=== PATIENT | female | born 1990 ===

== ENCOUNTER 2020-08-20 16:12 | Outpatient (REF) | payer OTHER, SELFPAY ==
[2020-08-20 18:15] LABS: Free T4 (Free Thyroxine) 1.07 ng/dL (0.71-1.85); Thyroid Stimulating Hormone 1.14 uIU/mL (0.32-4.0)
== END 2020-08-20 16:13 | disposition home or self-care (01) ==
LOC: HO.LAB 16:12
PROVIDERS: PCP Physician Assistant; Visit Provider Nurse Practitioner Gerontology
DX: E03.9 Hypothyroidism, unspecified (principal)
CPT/HCPCS: 36415; 84439; 84443

== ENCOUNTER 2020-09-05 13:01 | Outpatient (REF) | payer OTHER, SELFPAY ==
[2020-09-05 15:13] LABS: Free T4 (Free Thyroxine) 1.04 ng/dL (0.71-1.85); Thyroid Stimulating Hormone 0.73 uIU/mL (0.32-4.0)
== END 2020-09-05 13:02 | disposition home or self-care (01) ==
LOC: HO.LAB 13:01
PROVIDERS: PCP Family Medicine Adult Medicine; Visit Provider Nurse Practitioner Gerontology
DX: E03.9 Hypothyroidism, unspecified (principal)
CPT/HCPCS: 36415; 84439; 84443; 99212

== ENCOUNTER 2021-08-20 13:19 | Outpatient (REF) | payer OTHER, SELFPAY ==
[2021-08-20 15:03] LABS: Free T4 (Free Thyroxine) 0.94 ng/dL (0.71-1.85); Thyroid Stimulating Hormone 2.69 uIU/mL (0.32-4.0)
== END 2021-08-20 13:20 | disposition home or self-care (01) ==
LOC: HO.LAB 13:19
PROVIDERS: Visit Provider Internal Medicine Endocrinology, Diabetes & Metabolism
DX: E03.9 Hypothyroidism, unspecified (principal)
CPT/HCPCS: 36415; 84439; 84443

== ENCOUNTER → 2021-08-21 15:03 | Outpatient (BNVA) | payer OTHER, SELFPAY | PROVIDERS: PCP Family Medicine Adult Medicine; Visit Provider Internal Medicine Endocrinology, Diabetes & Metabolism | DX: E03.9 Hypothyroidism, unspecified (principal); R63.5 Abnormal weight gain; Z68.26 Body mass index [BMI] 26.0-26.9, adult | CPT/HCPCS: 99212 ==

== ENCOUNTER 2021-09-12 12:02 | Outpatient (REF) | payer OTHER, SELFPAY ==
[2021-09-12 12:22] LABS: MANUAL DIFF FLAG NO
[2021-09-12 12:44] LABS: Basophils Percent Auto 0.5 % (0-2); Eosinophils Absolute Auto 0.1 X10*3/uL (0.0-0.4); Eosinophils Percent Auto 1.2 % (0-4); Hematocrit 38.3 % (37.0-47.0); Hemoglobin 12.5 g/dl (12.0-16.0); Imm Gran Abs Auto 0.01 X10*3/uL (0.00-0.03); Imm Gran Pct Auto 0.2 % (0.0-0.4); Lymphocytes Absolute Auto 1.7 X10*3/uL (1.2-4.9); Lymphocytes Percent Auto 29.7 % (20-40); Mean Corpuscular HGB Conc 32.6 g/dl (31.0-35.0); Mean Corpuscular Hemoglobin 28.3 pg (27.0-33.0); Mean Corpuscular Volume 86.8 fL (80.0-98.0); Mean Platelet Volume 9.4 fL (9.4-12.3); Monocytes Absolute Auto 0.4 X10*3/uL (0.1-1.2); Monocytes Percent Auto 7.6 % (2-11); Neutrophils Absolute Auto 3.4 x10*3/uL (2.0-8.3); Neutrophils Percent Auto 60.8 % (45-73); Platelet Count 338 X10*3/uL (160-400); Red Blood Count 4.41 X10*6/uL (4.20-5.50); White Blood Count 5.7 X10*3/uL (4.8-10.8)
[2021-09-12 13:09] LABS: Prothrombin Time 11.6 SEC (9.9-13.0)
[2021-09-12 13:19] LABS: Alanine Aminotransferase 9 U/L (0-31); Albumin Level 4.2 g/dL (3.5-5.0); Alkaline Phosphatase 71 U/L (39-117); Anion Gap 9 (12-20); Aspartate Amino Transferase 15 U/L (5-31); Bilirubin Total 0.6 mg/dL (0.0-1.0); Blood Urea Nitrogen 11 mg/dL (9-16); Carbon Dioxide 27 mmol/L (22-29); Chloride 106 mmol/L (96-108); Estimated Glomerular Filt Rate > 60; Glucose Random 89 mg/dL (60-115); Potassium 4.2 mmol/L (3.3-5.1); Sodium 138 mmol/L (135-145); Total Protein 7.2 g/dL (6.5-8.0)
[2021-09-12 13:33] LABS: Vitamin D 25-OH Total 27.9 ng/mL (>30)
[2021-09-12 13:48] LABS: Folate 18.6 ng/mL (> or = 4.0); Vitamin B12 377 pg/mL (200-900)
[2021-09-13 18:16] LABS: DHEA Sulfate 200 mcg/dL (19-237)
[2021-09-18 21:36] LABS: Testosterone, Total 42 ng/dL (2-45)
== END 2021-09-12 12:03 | disposition home or self-care (01) ==
LOC: HO.LAB 12:02
PROVIDERS: Absent Provider Internal Medicine Endocrinology, Diabetes & Metabolism; PCP Physician Assistant; Visit Provider Nurse Practitioner Family
DX: R23.8 Other skin changes (principal); R53.83 Other fatigue; R63.5 Abnormal weight gain
CPT/HCPCS: 36415; 80053; 82306; 82607; 82627; 82746; 84402; 84403; 85025; 85610

== ENCOUNTER 2022-10-29 09:28 | Outpatient (AMB) | payer OTHER, SELFPAY ==
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
== END 2022-10-29 10:12 | disposition home or self-care (01) ==
LOC: HO.HMGH 09:28
PROVIDERS: PCP Physician Assistant; Visit Provider Nurse Practitioner Family
DX: F33.1 Major depressive disorder, recurrent, moderate (principal); E03.9 Hypothyroidism, unspecified; E28.2 Polycystic ovarian syndrome
CPT/HCPCS: 99214

== ENCOUNTER 2022-10-30 12:43 | Outpatient (REF) | payer OTHER, SELFPAY ==
[2022-10-30 13:21] LABS: Hematocrit 39.6 % (37.0-47.0); Hemoglobin 12.7 g/dl (12.0-16.0); Mean Corpuscular HGB Conc 32.1 g/dl (31.0-35.0); Mean Corpuscular Hemoglobin 27.4 pg (27.0-33.0); Mean Corpuscular Volume 85.5 fL (80.0-98.0); Mean Platelet Volume 9.3 fL (9.4-12.3); Platelet Count 413 X10*3/uL (160-400); Red Blood Count 4.63 X10*6/uL (4.20-5.50); Red Cell Distribution Width 14.3 % (11.0-16.0)
[2022-10-30 14:53] LABS: Alanine Aminotransferase 10 U/L (0-31); Albumin Level 4.2 g/dL (3.5-5.0); Alkaline Phosphatase 71 U/L (39-117); Anion Gap 11 (12-20); Aspartate Amino Transferase 15 U/L (5-31); Bilirubin Total 0.5 mg/dL (0.0-1.0); Blood Urea Nitrogen 10 mg/dL (9-16); Calcium 9.5 mg/dL (8.4-10.2); Carbon Dioxide 26 mmol/L (22-29); Chloride 107 mmol/L (96-108); Estimated Glomerular Filt Rate > 60; Glucose Fasting 84 mg/dL (60-99); Potassium 3.7 mmol/L (3.3-5.1); Sodium 140 mmol/L (135-145); Total Protein 7.7 g/dL (6.5-8.0)
[2022-10-30 15:06] LABS: TSH reflex Free T4 1.44 uIU/mL (0.32-4.0)
== END 2022-10-30 12:44 | disposition home or self-care (01) ==
LOC: HO.LAB 12:43
PROVIDERS: PCP Physician Assistant; Visit Provider Physician Assistant
DX: Z13.1 Encounter for screening for diabetes mellitus (principal); E03.9 Hypothyroidism, unspecified
CPT/HCPCS: 36415; 80053; 84443; 85027

== ENCOUNTER 2023-01-14 14:26 | Outpatient (AMB) | payer OTHER, SELFPAY ==
--- NOTE | 2023-01-14 14:27 | MHC.PC.OV ---
Vital Signs 01/14/23 14:28 Height 5 ft 3 in Weight 159 lb 4 oz BMI 28.2 BP 124/68 Blood Pressure Location Lt brachial Position Sitting Pulse 79 Pulse Source Pulse Oximeter Pulse Oximetry (%) 98 Oxygen Delivery Method Room Air Intake Visit Reasons: Annual Exam Intake Note: Patient is here today for a physical. Differential Tester Required: No Clinical Research Manager: Not Required per policy Accompanied by: Self / Same As Patient Allergies CLindamycin Allergy (Unknown, Uncoded 01/14/23 14:39) rash latex Allergy (Unknown, Uncoded 01/14/23 14:39) Swelling Medication List - Last Reconciled 01/14/23 by Cuco Roth PA-C acetaminophen 650 mg PO Q4H PRN albuterol sulfate 90 mcg/actuation (Ventolin HFA) 1 inh inhalation QID 30 days cholecalciferol (vitamin D3) 10 mcg PO DAILY hydroxyzine HCl 10 mg PO ONCE PRN 30 days ibuprofen 0 mg PO levothyroxine 25 mcg PO DAILY 30 days metformin 1,000 mg PO BID sertraline 50 mg (2 x 25 mg) PO DAILY 90 days Tobacco use date assessed: 01/14/23 Dental Screening Dental Screen Date: 01/14/23 Did you have a dental visit in the last 12 months?: Yes Did you have a dental problem in the last 6 months where you did not have access to dental care?: No Was dental information given to patient?: Patient has dentist HPI Annual Exam HPI Details Patient is a 32-year-old female here today for routine annual physical. Patient has a past medical history significant for asthma, anxiety and hypothyroidism. 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 Recently stone by a bee on her forehead which required IM epinephrine and ER evaluation. She was revived at the ER with epinephrine and DuoNebs. She now has EpiPen available to her. .. Generalized anxiety disorder: She continues on SSRI therapy though feels it is not as effective as originally. She reports she has been dealing with a lot stress and increased anxiety due her personal life. She is willing to increase her dose of Zoloft to 100 mg for better anxiety control. .. PCOS : Continues on metformin 2000 mg daily. Does have PCOS and has constant low-grade abdominal pain. .. Asthma: Has been fairly well controlled with p.r.n. use of her albuterol inhaler. Recent anaphylactic reaction to a bee sting requiring IM epinephrine. .. Hypothyroidism: She has lost follow-up with endocrinology. Continues on levothyroxine 25 mcg. Her most recent TSH is stable. Vaccines: Declines flu and COVID, needs Tdap though unclear if she has gotten this in the last 10 years. 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- she is considering having another child Laboratory Tests 10/30/22 12:54 RBC 4.63 Creatinine 0.80 TSH 1.44 PFSH Medical History Weight gain Migraines PCOS (polycystic ovarian syndrome) Asthma Acquired hypothyroidism Surgical History Hx of tooth extraction Hx of wisdom tooth extraction History of surgery Family History (Updated 01/14/23 @ 14:45 by Cuco Roth PA-C) Father Unknown family medical history Mother Asthma Maternal Uncle Hx of thyroidectomy Family/Other Mental health disorder Social History (Updated 01/14/23 @ 14:46 by Cuco Roth PA-C) Household Members: Family Housing: House Alcohol intake: current Alcohol intake frequency: holidays/special occasions only Patient Tobacco Use Status: Never used Tobacco e-Cigarette/Vaping Use: Never Used Second Hand Smoke Exposure: Yes service: No Current occupational status: employed Current occupation: [employer] Cognitive needs: No Hearing needs: No Vision needs: No Questionnaire Thrive Questionnaire Date Thrive assessed: 06/11/22 BOB-7 AMB Questionnaire BOB-7 Date BOB - 7 assessed: 06/11/22 Source: Developed by Drs. Desean Velásquez, Corinna Donaldson, Qamar Richter and colleagues, with an educational keanu from [employer]. ACT Questionnaire In the past 4 weeks, how much of the time did your asthma keep you from getting as much done at work, school or at home?: A little of the time During the past 4 weeks, how often have you had shortness of breath?: 1-2 times a week During the past 4 weeks, how often did your asthma symptoms wake you up at night or earlier than usual in the morning?: Not at all During the past 4 weeks, how often have you had to use your rescue inhaler or nebulizer medication?: Not at all How would you rate your asthma control during the past 4 weeks?: Well controlled ACT Interpretation: Negative Score: 22 Review of Systems Const Denies body aches, Denies chills, Denies excessive sweating, Denies fatigue, Denies fever(s) and Denies headache(s) Eyes Denies blurry vision ENT Denies dysphagia, Denies vertigo, Denies dizziness, Denies headache(s), Denies hearing loss and Denies tinnitus Card Denies chest pain, Denies chest pain with activity, Denies syncope, Denies irregular heart rhythm and Denies dyspnea Resp Denies chest congestion, Denies cough, Denies hemoptysis, Denies dyspnea and Denies wheezing GI Denies abdominal pain, Denies melena, Denies hematochezia, Denies coffee ground emesis, Denies dysphagia, Denies diarrhea, Denies nausea and Denies vomiting Denies urinary frequency, Denies dysuria, Denies urinary hesitancy and Denies urinary urgency Musc Denies arthralgias, Denies limited range of motion, Denies muscle cramps and Denies muscle weakness Skin/Breast Denies rash and Denies skin ulcer Neuro Denies Abnormal speech present, Denies confusion, Denies vertigo, Denies dizziness, Denies syncope, Denies headache(s), Denies memory loss and Denies seizure-like activity Psych Denies anxiety, Denies confusion, Denies depression, Denies memory loss, Denies panic attacks and Denies paranoia Endo Denies excessive sweating, Denies fatigue, Denies flushing, Denies polydipsia and Denies polyuria Aller/Immun Denies wheezing Physical exam (Primary Care) Vital Signs: Last Vital Signs Pulse 79 01/14/23 14:28 BP 124/68 01/14/23 14:28 Pulse Ox 98 01/14/23 14:28 Oxygen Delivery Method Room Air 01/14/23 14:28 BMI result Body Mass Index 28.2 Tobacco/Smoking Status: Tobacco use Status Tobacco use date assessed 01/14/23 01/14/23 14:35 Patient Tobacco Use Status Never used Tobacco 01/14/23 14:35 e-Cigarette/Vaping Use Never Used 01/14/23 14:35 Thrive Assessment: Date of Thrive Assessment Date Thrive assessed 06/11/22 01/14/23 14:35 Const General: cooperative, comfortable, no acute distress, alert and awake; No confusion Orientation/consciousness: oriented to person, oriented to place, patient oriented x3 and No confusion HENMT Head: Yes normocephalic Ears: external ears normal and TM's normal bilaterally Face and sinus: No sinus tenderness Mouth: Normal oral and palatal mucosa present and tongue normal Teeth and gingiva: dentition normal and gingiva normal Throat: Yes posterior oropharynx normal, Yes tonsils normal and Yes uvula midline Eyes Conjunctivae: conjunctivae normal Sclerae: sclerae normal Pupils: Equal, round and reactive pupils present EOM: EOMs intact bilaterally Direct Ophthalmoscopy: No no photophobia Neck Neck: Yes no lymphadenopathy, No tender and Yes no JVD Thyroid: Thyroid normal Carotids: no bruits Chest Chest palpation & inspection: no tenderness Resp Effort & Inspection: normal respiratory effort, no audible wheezes, not labored and no stridor Auscultation: no crackles, no rales, no rhonchi and no wheezes Cardio Jugular venous distension: no JVD Rate: regular rate, not bradycardic and not tachycardic Rhythm: regular rhythm Bruits: no carotid bruits Peripheral pulses: Peripheral pulses 2+ throughout GI Inspection: Yes normal to inspection, No abdominal wall ecchymosis and No visible herniation Palpation (GI): Soft to palpation, nontender, no guarding, not rigid and No hepatosplenomegaly present Auscultation: normoactive bowel sounds General: Yes no CVA tenderness Back/Spine/Pelvis Back: no CVA tenderness and No back tenderness Cervical Spine: cervical ROM normal Thoracic/Lumbar Spine: thoracic and lumbar spine normal to inspection, straight leg raise negative bilaterally, No thoraco-lumbar ROM limited and No lumbar spinal tenderness Skin Lesions: no lesions Rashes: no rashes Wounds: no wounds Neuro General: oriented to person, oriented to place, patient oriented x3, CN's II-XI intact bilaterally and No confusion Cranial nerves: Yes Equal, round and reactive pupils present and Yes Normal accommodation reflex present Cognition (Neuro): normal cognition Speech: No Abnormal speech present Gait exam (Neuro): Normal gait present Motor exam (neuro): 5/5 motor strength present throughout Extrem Right upper extremity: full ROM; no cyanosis Left upper extremity: full ROM; no cyanosis Right lower extremity: no edema Left lower extremity: no edema Psych Appearance: grossly normal Mental Status: mental status grossly normal Affect: normal affect Attitude: cooperative Thought process: Normal thought process present Assessment and Plan Assessment & Plan (1) Annual physical exam: Code(s): Z00.00 - Encounter for general adult medical examination without abnormal findings (2) BOB (generalized anxiety disorder): Code(s): F41.1 - Generalized anxiety disorder Plan: Patient's anxiety has been elevated as of late. She her triggers are personal life in her hyperactive child. Will increase her Zoloft medication to 100 mg for better anxiety symptom relief. She is now interested in speaking with a mental health therapist. (3) MDD (major depressive disorder), recurrent episode, moderate: Code(s): F33.1 - Major depressive disorder, recurrent, moderate Plan: She does report her depression is somewhat elevated due to being more stressed out with her personal life. Again will increase her SSRI dose. (4) Acute anaphylaxis: Code(s): T78.2XXA - Anaphylactic shock, unspecified, initial encounter Qualifiers: Encounter type: subsequent encounter Qualified Code(s): T78.2XXD - Anaphylactic shock, unspecified, subsequent encounter Plan: As per HPI patient recently seen he [facility] ER for acute anaphylactic reaction to a bee sting. Will supply patient with EpiPen to have for emergency . (5) Acquired hypothyroidism: Code(s): E03.9 - Hypothyroidism, unspecified Plan: Patient's most recent TSH noted to be within normal range. Will continue her current dose of levothyroxine at 25 mcg. (6) Low vitamin D level: Code(s): R79.89 - Other specified abnormal findings of blood chemistry (7) Asthma: Code(s): J45.909 - Unspecified asthma, uncomplicated Qualifiers: Asthma severity: mild Asthma persistence: intermittent Asthma complication type: uncomplicated Qualified Code(s): J45.20 - Mild intermittent asthma, uncomplicated Plan: Asthma has been fairly well controlled with only p.r.n. use of her albuterol inhaler. Denies any nighttime awakenings with asthma symptoms. She does report her anxiety does make her asthma symptoms worse at times. Orders: Orders Comprehensive [place]. Panel Fast Today Z13.1 - Encounter for screening for diabetes mellitus Vitamin D 25-OH Total Today R79.89 - Other specified abnormal findings of blood chemistry TSH reflex Free T4 Today E03.9 - Hypothyroidism, unspecified Referrals Counseling Referral F41.1 - Generalized anxiety disorder Medications: New epinephrine (EpiPen 2-Shahzad) 0.3 mg (0.3 mL) IM ONCE 30 days PRN 2 ea 0RF anaphylaxis T78.2XXD - Anaphylactic shock, unspecified, subsequent encounter sertraline 100 mg PO DAILY 90 days 90 tabs 1RF F41.1 - Generalized anxiety disorder Changed From metformin 500 mg PO DAILY 30 tabs 0RF To metformin 1,000 mg PO BID Refilled hydroxyzine HCl 10 mg PO ONCE 30 days PRN 30 tabs 3RF panic attack F41.1 - Generalized anxiety disorder Discontinued sertraline Discontinued Reason: Doctor's Order 50 mg (2 x 25 mg) PO DAILY 90 days 180 tabs 1RF F41.1 - Generalized anxiety disorder Coding Level of Care Code Est Pt Prev Care 18-39y(21857) Diagnoses Annual physical exam Z00.00 BOB (generalized anxiety disorder) F41.1 MDD (major depressive disorder), recurrent episode, moderate F33.1 Acute anaphylaxis, subsequent encounter T78.2XXD Encounter type: subsequent encounter Acquired hypothyroidism E03.9 Low vitamin D level R79.89 Mild intermittent asthma without complication J45.20 Asthma severity: mild Asthma persistence: intermittent Asthma complication type: uncomplicated
[2023-01-14 14:28] VITALS: BP 124/68; PULSE 79; O2SAT 98; BMI 28.2
== END 2023-01-14 15:16 | disposition home or self-care (01) ==
PROVIDERS: PCP Physician Assistant; Visit Provider Physician Assistant
DX: Z00.00 Encounter for general adult medical examination without abnormal findings (principal); F41.1 Generalized anxiety disorder; F33.1 Major depressive disorder, recurrent, moderate; T78.2XXD Anaphylactic shock, unspecified, subsequent encounter; E03.9 Hypothyroidism, unspecified; R79.89 Other specified abnormal findings of blood chemistry; J45.20 Mild intermittent asthma, uncomplicated
CPT/HCPCS: 99395

== ENCOUNTER 2023-01-30 09:25 | Outpatient (REF) | payer OTHER, SELFPAY ==
[2023-01-30 10:21] LABS: Alanine Aminotransferase 7 U/L (0-31); Albumin Level 4.2 g/dL (3.5-5.0); Alkaline Phosphatase 69 U/L (39-117); Anion Gap 11 (12-20); Aspartate Amino Transferase 16 U/L (5-31); Bilirubin Total 0.4 mg/dL (0.0-1.0); Blood Urea Nitrogen 11 mg/dL (9-16); Calcium 9.1 mg/dL (8.4-10.2); Carbon Dioxide 23 mmol/L (22-29); Chloride 106 mmol/L (96-108); Estimated Glomerular Filt Rate > 60; Glucose Fasting 88 mg/dL (60-99); Sodium 136 mmol/L (135-145); Total Protein 7.4 g/dL (6.5-8.0)
[2023-01-30 10:36] LABS: TSH reflex Free T4 2.07 uIU/mL (0.32-4.0)
== END 2023-01-30 09:26 | disposition home or self-care (01) ==
LOC: HO.LAB 09:25
PROVIDERS: PCP Physician Assistant; Visit Provider Physician Assistant
DX: E03.9 Hypothyroidism, unspecified (principal); E55.9 Vitamin D deficiency, unspecified; Z13.1 Encounter for screening for diabetes mellitus
CPT/HCPCS: 36415; 80053; 82306; 84443

== ENCOUNTER 2023-08-30 11:02 | Outpatient (AMB) | payer OTHER, SELFPAY ==
--- NOTE | 2023-08-30 11:07 | MHC.PC.OV ---
Vital Signs 08/30/23 11:08 Height 5 ft 1 in Weight 153 lb 8 oz BMI 29.0 BP 128/86 Blood Pressure Location Lt brachial Position Sitting Pulse 76 Pulse Source Pulse Oximeter Pulse Oximetry (%) 98 Oxygen Delivery Method Room Air Intake Visit Reasons: follow up Lead Quality Control Technician Required: No Accompanied by: Spouse Allergies CLindamycin Allergy (Unknown, Uncoded 08/30/23 11:41) rash latex Allergy (Unknown, Uncoded 08/30/23 11:41) Swelling Medication List - Last Reconciled 08/30/23 by Cuco Roth PA-C acetaminophen 650 mg PO Q4H PRN albuterol sulfate 90 mcg/actuation (Ventolin HFA) 1 inh inhalation QID 30 days cholecalciferol (vitamin D3) 10 mcg PO DAILY epinephrine (EpiPen 2-Shahzad) 0.3 mg (0.3 mL) IM ONCE PRN 30 days hydroxyzine HCl 10 mg PO ONCE PRN 30 days ibuprofen 0 mg PO lamotrigine 25 mg PO DAILY sertraline 100 mg PO DAILY 90 days Tobacco use date assessed: 08/30/23 Dental Screening Dental Screen Date: 08/30/23 Did you have a dental visit in the last 12 months?: Yes Did you have a dental problem in the last 6 months where you did not have access to dental care?: No Was dental information given to patient?: Patient has dentist HPI follow up HPI Details Patient is a 33-year-old female here today for a hospital discharge follow-up Patient has a past medical history significant for asthma, anxiety and hypothyroidism. Patient was seen at [facility] for 2 month history of gradually worsening and more frequent headaches. She does report feeling lightheaded and dizzy, did report syncopal episodes and diarrhea. CT abdomen pelvis did show liquid stool in colon suggestive of viral diarrhea. EKG done which was essentially normal though did show slightly prolonged QT. For the syncope and fatigue She denied any seizure-like activity. She did undergo testing for ROMERO, STIs, tick-borne illnesses. She was found to be severely dehydrated and was given IV fluids. She also over the last 3-4 months having pretty severe left hip pain radiating into knee and down into foot and ankle. No trauma reported. She did get x-rays without any significant arthritis or inflammation noted. Recommendations by hospital was to do outpatient EEG testing in neurology follow-up. And repeat EKG due to the QT prolongation. She has since followed up with a psychiatrist and was started on Lamictal 25 mg and interestingly enough she reports her leg pain has gotten a bit better. [facility] Medical History Weight gain Migraines PCOS (polycystic ovarian syndrome) Asthma Acquired hypothyroidism Surgical History Hx of tooth extraction Hx of wisdom tooth extraction History of surgery Family History Father Unknown family medical history Mother Asthma Maternal Uncle Hx of thyroidectomy Family/Other Mental health disorder Social History Household Members: Family Housing: House Alcohol intake: current Alcohol intake frequency: holidays/special occasions only Patient Tobacco Use Status: Never used Tobacco e-Cigarette/Vaping Use: Never Used Second Hand Smoke Exposure: Yes service: No Current occupational status: employed Current occupation: [employer] Cognitive needs: No Hearing needs: No Vision needs: No Questionnaire PHQ-9 Over the last 2 weeks, how often have you been bothered by any of the following problems? 06382 - PHQ-9 Billing: Patient declined-do not bill (Pt is seeing a Psych. and being treated.) Source: Developed by Drs. Desean Velásquez, Corinna Donaldson, Qamar Richter and colleagues, with an educational keanu from [employer]. Thrive Questionnaire Date Thrive assessed: 08/30/23 I am a: Patient What is your living situation today?: I have a steady place to live Within the past 12 months, did the food you bought not last and you didn't have the money to get more?: Never true Within the past 12 months, did you worry whether your food would run out before you got money to buy more?: Never true Do you have trouble paying for medicines?: No Do you have trouble getting transportation to medical appointments?: No Do you have trouble paying your heating and electricity bill?: No Do you have trouble taking care of your child, family member or friend?: No Do you have trouble with day-to-day activities such as bathing, preparing meals, shopping, managing finances, etc.?: No Are you currently unemployed and looking for a job?: No Are you interested in more education?: No Please select the resources that you would like help with: None Currently or been in a relationship where the following occur: no concerns reported THRIVE Score: 0 AUDIT C Alcohol Use Questionnaire (AUDIT-C) 1. How often do you have a drink containing alcohol?: Never 3. How often do you have six or more drinks on one occasion?: Never Total Score: 0 BOB-7 AMB Questionnaire BOB-7 Date BOB - 7 assessed: 08/30/23 Source: Developed by Drs. Desean Velásquez, Corinna Donaldson, Qamar Richter and colleagues, with an educational keanu from [employer]. BOB-7 Assessment Billing BOB-7 Assessment Tool: pt declined-do not bill (Pt being treated.) Review of Systems Const Denies headache(s) Eyes Reports blurry vision and Denies loss of vision ENT Reports vertigo, Reports dizziness, Denies headache(s) and Denies sore throat Card Denies chest pain, Denies leg edema and Denies lightheadedness Resp Denies cough, Denies hemoptysis and Denies wheezing GI Denies abdominal pain, Denies melena, Denies constipation, Reports dyspepsia, Reports heartburn, Reports diarrhea and Denies vomiting Denies urinary frequency, Denies dysuria and Denies urinary urgency Musc Details: + EXQUISITE RIGHT LEG PAIN Denies arthralgias, Denies joint swelling, Denies numbness and Denies tingling Neuro Denies Abnormal speech present, Denies behavioral changes, Reports vertigo, Reports dizziness, Denies headache(s), Denies loss of vision, Denies memory loss, Denies numbness and Denies tingling Psych Denies anxiety, Denies behavioral changes, Denies depression, Denies memory loss and Denies panic attacks Artemio/Lymph Denies easy bleeding and Denies easy bruising Aller/Immun Denies wheezing Physical exam (Primary Care) Vital Signs: Last Vital Signs Pulse 76 08/30/23 11:08 BP 128/86 08/30/23 11:08 Pulse Ox 98 08/30/23 11:08 Oxygen Delivery Method Room Air 08/30/23 11:08 BMI result Body Mass Index 29.0 Tobacco/Smoking Status: Tobacco use Status Tobacco use date assessed 08/30/23 08/30/23 11:25 Patient Tobacco Use Status Never used Tobacco 08/30/23 11:09 e-Cigarette/Vaping Use Never Used 08/30/23 11:25 Thrive Assessment: Date of Thrive Assessment Date Thrive assessed 08/30/23 08/30/23 11:11 Currently or been in a relationship where the following occur: no concerns reported Const General: healthy appearing, no acute distress, alert and awake Nutritional Appearance: well nourished Orientation/consciousness: oriented to person, oriented to place and oriented to time HENMT Ears: TM's normal bilaterally General nose exam: Normal nasal mucous membranes and turbinates present Eyes Conjunctivae: conjunctivae normal Sclerae: sclerae normal Pupils: Equal, round and reactive pupils present Neck Neck: Yes no lymphadenopathy and Yes no JVD Thyroid: Thyroid normal Carotids: no bruits Resp Effort & Inspection: normal respiratory effort and not tachypneic Auscultation: no crackles, no rales, no rhonchi and no wheezes Cardio Rate: regular rate Rhythm: regular rhythm Heart sounds: no murmurs and normal S1 and S2 GI Palpation (GI): Soft to palpation, nontender, no hepatomegaly and no splenomegaly Auscultation: normal bowel sounds Skin General skin exam: no rashes or lesions noted and dry skin Neuro General: oriented to person, oriented to place and oriented to time Cranial nerves: Yes Equal, round and reactive pupils present Speech: No Abnormal speech present Gait exam (Neuro): Normal gait present Motor exam (neuro): no tremor noted Extrem Other: RIGHT LOWER EXTREMITY: DECREASED RANGE OF MOTION OF HIP AND RIGHT KNEE DUE TO PAIN AND STIFFNESS. PATIENT AMBULATING WITH ASSISTANCE FROM A CANE. SEEMS TO BE IN PAIN WHEN STANDING AND WALKING-AMBULATING WITH AN ANTALGIC GAIT Right upper extremity: full ROM Left upper extremity: full ROM Right lower extremity: full ROM; no edema Left lower extremity: full ROM; no edema Psych Mental Status: mental status grossly normal Speech and movement: Normal speech and movement present Affect: normal affect Attitude: cooperative Thought process: Normal thought process present Assessment and Plan Assessment & Plan (1) Syncope: Code(s): R55 - Syncope and collapse Qualifiers: Syncope type: unspecified Qualified Code(s): R55 - Syncope and collapse Plan: Unclear etiology to patient's syncopal episodes. Was thought to be due to dehydration and hypoglycemia. Due to patient's reports of epigastric pain and decreased appetite likely has gastritis. Will start patient on omeprazole to take 30 minutes before food to see if she can increase her appetite and eat 3 regular meals a day. (2) Right hip pain: Code(s): M25.551 - Pain in right hip Plan: Unclear etiology to patient's right hip and leg pain. There was no associated trauma. She has some difficulty with ambulation is now using a cane. She reports this has progressively gotten worse over the last 3 months. She does report some neuropathic type pain in the leg as well. Offered physical therapy though patient is declining at this time. As per HPI it is interesting that Lamictal given by psychiatry team has helped her leg and hip pain somewhat. (3) MDD (major depressive disorder), recurrent episode, moderate: Code(s): F33.1 - Major depressive disorder, recurrent, moderate Plan: Patient now seeing a mental health therapist and a psychiatrist. Has been trying new medications and recently started on Lamictal which has been somewhat helpful (4) QT prolongation: Code(s): R94.31 - Abnormal electrocardiogram [ECG] [EKG] Plan: Was found to have QT prolongation while in the hospital. Recommendations for cardiac Holter monitor and cardiac evaluation due to the QT prolongation. (5) Blurry vision, bilateral: Code(s): H53.8 - Other visual disturbances Plan: Patient does report some blurry vision over last few months is well. There were some concerns here for multiple sclerosis due to her focal neurological deficit complex syncopal episodes and blurry vision. Will try for MRI of brain to evaluate for white matter demyelinating disease. (6) GERD (gastroesophageal reflux disease): Code(s): K21.9 - Gastro-esophageal reflux disease without esophagitis Qualifiers: Esophagitis presence: without esophagitis Qualified Code(s): K21.9 - Gastro-esophageal reflux disease without esophagitis Plan: As above patient has had low appetite along with hypoglycemia from not eating. Has been taking a lot of ibuprofen and acetaminophen due to her focal right hip and leg pain. Advised on reducing NSAIDs as she may be having gastritis. Will start her on PPI therapy to help gastritis symptoms and hope to increase her appetite to reduce hypoglycemic events. Orders: Orders MR head/brain wo con 08/30/23 H53.8 - Other visual disturbances, R55 - Syncope and collapse ROMERO Reflex Titer and Pattern 08/30/23 R55 - Syncope and collapse Anti DNA DS Antibody 08/30/23 R55 - Syncope and collapse EEG ambulatory 08/30/23 R55 - Syncope and collapse ECG 14 day holter monitor 08/30/23 R94.31 - Abnormal electrocardiogram [ECG] [EKG] Complete Blood Count no Diff 08/30/23 R55 - Syncope and collapse Basic Metabolic Panel 08/30/23 K21.9 - Gastro-esophageal reflux disease without esophagitis Referrals Cardiology Referral R94.31 - Abnormal electrocardiogram [ECG] [EKG] Neurology Referral R55 - Syncope and collapse Medications: New tizanidine 2 mg PO BEDTIME 14 days 14 tabs 0RF muscle spasticity M25.551 - Pain in right hip pantoprazole 20 mg PO DAILY 30 days 30 tabs 2RF K21.9 - Gastro-esophageal reflux disease without esophagitis Coding Level of Care Code Est Pt Level 4 (66049) Diagnoses Syncope, unspecified syncope type R55 Syncope type: unspecified Right hip pain M25.551 MDD (major depressive disorder), recurrent episode, moderate F33.1 QT prolongation R94.31 Blurry vision, bilateral H53.8 Gastroesophageal reflux disease without esophagitis K21.9 Esophagitis presence: without esophagitis
[2023-08-30 11:08] VITALS: BP 128/86; PULSE 76; O2SAT 98; BMI 29.0
== END 2023-08-30 12:15 | disposition home or self-care (01) ==
PROVIDERS: PCP Physician Assistant; Visit Provider Physician Assistant
DX: R55 Syncope and collapse (principal); F33.1 Major depressive disorder, recurrent, moderate; M25.551 Pain in right hip; R94.31 Abnormal electrocardiogram [ECG] [EKG]; H53.8 Other visual disturbances; K21.9 Gastro-esophageal reflux disease without esophagitis
CPT/HCPCS: 99214

== ENCOUNTER 2023-08-30 12:26 | Outpatient (REF) | payer OTHER, SELFPAY ==
[2023-08-30 13:20] LABS: Hemoglobin 12.2 g/dl (12.0-16.0); Mean Corpuscular HGB Conc 32.1 g/dl (31.0-35.0); Mean Corpuscular Hemoglobin 26.3 pg (27.0-33.0); Mean Corpuscular Volume 81.9 fL (80.0-98.0); Mean Platelet Volume 9.8 fL (9.4-12.3); Platelet Count 370 X10*3/uL (160-400); Red Blood Count 4.64 X10*6/uL (4.20-5.50); Red Cell Distribution Width 15.9 % (11.0-16.0); White Blood Count 7.4 X10*3/uL (4.8-10.8)
[2023-08-30 13:46] LABS: Anion Gap 10 (12-20); Blood Urea Nitrogen 12 mg/dL (9-16); Carbon Dioxide 25 mmol/L (22-29); Chloride 106 mmol/L (96-108); Estimated Glomerular Filt Rate > 60; Glucose Random 86 mg/dL (60-115); Potassium 3.5 mmol/L (3.3-5.1); Sodium 137 mmol/L (135-145)
[2023-08-31 20:08] LABS: Anti DNA DS Antibody 3 IU/mL
[2023-09-01 14:38] LABS: Anti Nuclear Antibody Screen NEGATIVE (NEGATIVE)
== END 2023-08-30 12:27 | disposition home or self-care (01) ==
LOC: HO.LAB 12:26
PROVIDERS: PCP Physician Assistant; Visit Provider Physician Assistant
DX: K21.9 Gastro-esophageal reflux disease without esophagitis (principal); R55 Syncope and collapse
CPT/HCPCS: 36415; 80048; 85027; 86038; 86225

== ENCOUNTER → 2023-10-06 10:43 | Outpatient (REF) | payer OTHER, SELFPAY ==
--- NOTE | 2023-10-06 10:58 | HM_ITS ---
* Total monitoring time 9 days. * Underlying rhythm is sinus with an average rate of 77/Min. * Rare supraventricular and ventricular ectopy. * No significant arrhythmias. * No significant pauses or AV blocks. * No patient markers. * Diary reports no symptoms. MTDD
== END ==
LOC: HO.CARD 10:43
PROVIDERS: Visit Provider Physician Assistant
DX: R94.31 Abnormal electrocardiogram [ECG] [EKG] (principal)
CPT/HCPCS: 93246

== ENCOUNTER → 2023-10-06 10:58 | Outpatient (BNV) | payer OTHER, SELFPAY | PROVIDERS: Visit Provider Internal Medicine | DX: I47.10 Supraventricular tachycardia, unspecified (principal) | CPT/HCPCS: 93248 ==

== ENCOUNTER 2023-10-14 10:16 | Outpatient (AMB) | payer OTHER, SELFPAY ==
--- NOTE | 2023-10-14 10:13 | MHC.PC.OV ---
Intake Visit Reasons: teleheath appt - follow up on GERD/ syncope Terrazzo Layer Helper Required: No Information Interpreted: non-clinical & clinical Supervisor Solder Making: Not Required per policy Accompanied by: Self / Same As Patient Allergies lamotrigine [From Lamictal] Adverse Reaction (Intermediate, Verified 10/14/23 10:34) Rash CLindamycin Allergy (Unknown, Uncoded 10/14/23 10:20) rash latex Allergy (Unknown, Uncoded 10/14/23 10:20) Swelling Medication List - Last Reconciled 10/14/23 by Cuco Roth PA-C acetaminophen 650 mg PO Q4H PRN albuterol sulfate 90 mcg/actuation (Ventolin HFA) 1 inh inhalation QID 30 days aripiprazole 5 mg PO DAILY cholecalciferol (vitamin D3) 10 mcg PO DAILY epinephrine (EpiPen 2-Shahzad) 0.3 mg (0.3 mL) IM ONCE PRN 30 days hydroxyzine HCl 10 mg PO ONCE PRN 30 days ibuprofen 0 mg PO pantoprazole 20 mg PO DAILY 30 days sertraline 100 mg PO DAILY 90 days tizanidine 2 mg PO BEDTIME 14 days Tobacco use date assessed: 08/30/23 Dental Screening Dental Screen Date: 08/30/23 HPI teleheath appt - follow up on GERD/ syncope HPI Details Patient is a 33-year-old female being evaluated via telephone. Patient continuing to a myriad of symptoms including left hip pain, hand paresthesias, GI upset and vomiting, presyncopal episodes. Of note patient does admit to taking 2000mg of metformin for PCOS which may be leading to hypoglycemic events and her GI symptoms. PLAN: Advised to hold off of metformin Interval history--> Patient was seen at [facility] for 2 month history of gradually worsening and more frequent headaches. . EKG done which was essentially normal though did show slightly prolonged QT. For the syncope and fatigue She denied any seizure-like activity. She did undergo testing for ROMERO, STIs, tick-borne illnesses. She was found to be severely dehydrated and was given IV fluids. She also over the last 3-4 months having pretty severe left hip pain radiating into knee and down into foot and ankle. No trauma reported. She did get x-rays without any significant arthritis or inflammation noted. Recommendations by hospital was to do outpatient EEG testing in neurology follow-up. And repeat EKG due to the QT prolongation. She is followed by a psychiatrist whom is making med changes Her lamotrigine was discontinued as it caused her rash. She is continuing on Abilify 5 and sertraline 100 mg. [facility] Medical History Weight gain Migraines PCOS (polycystic ovarian syndrome) Asthma Acquired hypothyroidism Surgical History Hx of tooth extraction Hx of wisdom tooth extraction History of surgery Family History Father Unknown family medical history Mother Asthma Maternal Uncle Hx of thyroidectomy Family/Other Mental health disorder Social History Household Members: Family Housing: House Alcohol intake: current Alcohol intake frequency: holidays/special occasions only Patient Tobacco Use Status: Never used Tobacco e-Cigarette/Vaping Use: Never Used Second Hand Smoke Exposure: Yes service: No Current occupational status: employed Current occupation: [employer] Cognitive needs: No Hearing needs: No Vision needs: No Questionnaire Thrive Questionnaire Date Thrive assessed: 08/30/23 BOB-7 AMB Questionnaire BOB-7 Date BOB - 7 assessed: 08/30/23 Source: Developed by Drs. Desean Velásquez, Corinna Donaldson, Qamar Richter and colleagues, with an educational keanu from [employer]. Review of Systems Const Denies headache(s) Eyes Denies loss of vision ENT Denies vertigo, Denies dizziness, Denies headache(s) and Denies sore throat Card Denies chest pain, Denies leg edema and Denies lightheadedness Resp Denies cough, Denies hemoptysis and Denies wheezing GI Denies abdominal pain, Denies melena, Denies constipation, Denies diarrhea and Denies vomiting Denies urinary frequency, Denies dysuria and Denies urinary urgency Musc Denies arthralgias, Denies joint swelling, Denies numbness and Denies tingling Neuro Denies behavioral changes, Denies vertigo, Denies dizziness, Denies headache(s), Denies loss of vision, Denies memory loss, Denies numbness and Denies tingling Psych Denies anxiety, Denies behavioral changes, Denies depression, Denies memory loss and Denies panic attacks Artemio/Lymph Denies easy bleeding and Denies easy bruising Aller/Immun Denies wheezing Physical exam (Primary Care) Tobacco/Smoking Status: Tobacco use Status Tobacco use date assessed 08/30/23 10/14/23 10:13 Patient Tobacco Use Status Never used Tobacco 10/14/23 10:13 e-Cigarette/Vaping Use Never Used 10/14/23 10:13 Thrive Assessment: Date of Thrive Assessment Date Thrive assessed 08/30/23 10/14/23 10:13 Telehealth Telehealth Telehealth Platform: Telephone Location of provider rendering services: practice address Location of patient: address on file Patient Identification confirmed using: Name, : Yes Telehealth method: voice only Patient verbally consented to treatment: Yes Patient verbally consented to billing insurance company: Yes Patient informed of any privacy concerns related to visit: Yes Minutes spent on Phone/Video with Pt.: 15 Assessment and Plan Assessment & Plan (1) Syncope: Code(s): R55 - Syncope and collapse Qualifiers: Syncope type: unspecified Qualified Code(s): R55 - Syncope and collapse Plan: Unclear etiology to patient's syncopal episodes. Was thought to be due to dehydration and hypoglycemia. She has upcoming MRI of brain and EEG to rule out intracranial mass or seizure disorder. Again advised on reducing/ stopping metformin as she may be having hypoglycemic events (2) Right hip pain: Code(s): M25.551 - Pain in right hip Plan: Unclear etiology to patient's right hip and leg pain. There was no associated trauma. She continues to have pretty severe left hip pain. X-ray of her left hip was normal. She reports she had a 3 day stent where she did not have much hip pain and was able to walk unassisted without a walker. She wonders if her hip pain is diet related As per HPI it is interesting that Lamictal given by psychiatry team has helped her leg and hip pain somewhat. (3) QT prolongation: Code(s): R94.31 - Abnormal electrocardiogram [ECG] [EKG] Plan: Was found to have QT prolongation while in the hospital. She has worn a Holter monitor for the last week and we are waiting results (4) Hand swelling: Code(s): M79.89 - Other specified soft tissue disorders (5) Swollen feet: Code(s): M79.89 - Other specified soft tissue disorders (6) Hand paresthesia: Code(s): R20.2 - Paresthesia of skin Medications: Refilled epinephrine (EpiPen 2-Shahzad) 0.3 mg (0.3 mL) IM ONCE PRN 2 ea 0RF anaphylaxis 30 days T78.2XXD - Anaphylactic shock, unspecified, subsequent encounter tizanidine 2 mg PO BEDTIME 14 tabs 0RF muscle spasticity 14 days M25.551 - Pain in right hip Coding Level of Care Code Tele Est Pt Level 3 (95074) Diagnoses Syncope, unspecified syncope type R55 Syncope type: unspecified Right hip pain M25.551 QT prolongation R94.31 Hand swelling M79.89 Swollen feet M79.89 Hand paresthesia R20.2
== END 2023-10-14 12:53 | disposition home or self-care (01) ==
LOC: HO.HMGH 10:16
PROVIDERS: PCP Physician Assistant; Visit Provider Physician Assistant
DX: R55 Syncope and collapse (principal); M25.551 Pain in right hip; R94.31 Abnormal electrocardiogram [ECG] [EKG]; M79.89 Other specified soft tissue disorders; R20.2 Paresthesia of skin
CPT/HCPCS: 99213

== ENCOUNTER 2023-10-22 12:44 | Outpatient (REF) | payer OTHER, SELFPAY ==
--- NOTE | ~2023-10-22 | MR_ITS ---
EXAMINATION: MR BRAIN WITHOUT CONTRAST CLINICAL INFORMATION: Syncope and collapse COMPARISON: None available. TECHNIQUE: MRI of the brain was obtained using routine sequences without contrast. FINDINGS: Motion artifact is present. No acute intracranial hemorrhage or infarct. Several FLAIR hyperintense foci are scattered through the periventricular white matter. There are additional patchy FLAIR hyperintensity along the cerebellar vermis at midline (series 4 image 20 of 26). No midline shift or hydrocephalus. Cavum septum pellucidum and vergae. No acute extra-axial fluid collections. The osseous structures are unremarkable. The pituitary gland, pineal gland and remaining midline structures are unremarkable. No orbital pathology. The paranasal sinuses and mastoid air cells are clear. MR/MR head/brain wo con IMPRESSION: Within the limitations of this study, -No acute intracranial hemorrhage or infarct. -Several nonspecific FLAIR hyperintense foci involving the periventricular white matter and the cerebellar vermis at midline. Electronically signed by: Divya Goldberg MD 11/18/2023 01:16 PM EDT
== END 2023-10-22 12:45 | disposition home or self-care (01) ==
LOC: HO.MRI 12:44
PROVIDERS: PCP Physician Assistant; Visit Provider Physician Assistant
DX: R55 Syncope and collapse (principal); H53.8 Other visual disturbances
CPT/HCPCS: 70551

== ENCOUNTER 2023-12-01 13:56 | Outpatient (AMB) | payer OTHER, SELFPAY ==
[2023-12-01 13:58] VITALS: BP 140/90; PULSE 100; BMI 30.6
--- NOTE | 2023-12-01 13:58 | MHC.OFFVIS ---
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 No known cardiovascular issues. Apparently she gets dizzy sensation/syncopal episodes fairly regularly. Happens more so in the setting of getting up from a seated position and sometimes while standing. She has been hospitalized at [facility] for this. However, no clear etiology identified. She is also having right lower extremity discomfort and is walking with a cane. During hospitalization at [facility], thought to have had a prolonged QT, but she also had other issues including nausea, vomiting and diarrhea prior to that which was thought to have led to the syncopal episode. They had recommended outpatient workup including echocardiogram and tilt-table test. [facility] Medical History Weight gain Migraines PCOS (polycystic ovarian syndrome) Asthma Acquired hypothyroidism Surgical History Hx of tooth extraction Hx of wisdom tooth extraction History of surgery Family History Father Unknown family medical history Mother Asthma Maternal Uncle Hx of thyroidectomy Family/Other Mental health disorder Social History Household Members: Family Housing: House Alcohol intake: current Alcohol intake frequency: holidays/special occasions only Patient Tobacco Use Status: Never used Tobacco e-Cigarette/Vaping Use: Never Used Second Hand Smoke Exposure: Yes service: No Current occupational status: employed Current occupation: [employer] Cognitive needs: No Hearing needs: No Vision needs: No Review of Systems Const Denies chills, Denies daytime sleepiness, Denies fatigue, Denies fever(s), Denies poor appetite, Denies snoring, Denies stops breathing during sleep, Denies weakness, Denies weight gain and Denies weight loss Eyes Denies loss of vision ENT Denies dizziness and Denies hearing loss Card Denies chest pain, Reports chest pain with activity, Denies irregular heart rhythm, Denies claudication, Denies leg edema, Denies lightheadedness, Reports palpitations, Reports dyspnea on exertion and Denies orthopnea Resp Denies cough, Denies excessive phlegm production, Reports dyspnea on exertion, Denies snoring and Denies wheezing GI Denies abdominal pain, Denies hematochezia, Denies change in bowel habits, Denies nausea and Denies vomiting Denies urinary frequency and Denies dysuria Musc Denies arthralgias, Denies muscle weakness, Denies numbness and Denies other Skin/Breast Denies nail changes and Denies rash Neuro Denies Abnormal speech present, Denies dizziness, Denies loss of vision, Denies memory loss, Denies numbness and Denies weakness Psych Denies depression and Denies memory loss Endo Denies fatigue and Reports palpitations Artemio/Lymph Denies easy bruising Aller/Immun Denies wheezing Physical Exam Vital Signs: Last Vital Signs Pulse 100 12/01/23 13:58 BP 140/90 H 12/01/23 13:58 BMI result Body Mass Index 30.6 Const General: comfortable and no acute distress Orientation/consciousness: patient oriented x3 HEENT Other: Unremarkable Head: Yes normal to inspection Neck Neck: Yes normal visual inspection Chest Chest palpation & inspection: normal inspection of the chest Resp Auscultation: clear to auscultation bilaterally Cardio Palpation: normal PMI Heart sounds: S1 normal heart sound present, S2 normal heart sound present, no gallops, no murmurs and no rubs GI Palpation (GI): Soft to palpation Back/Spine/Pelvis Other: unremarkable Skin General skin exam: no rashes or lesions noted Neuro General: patient oriented x3 Speech: No Abnormal speech present Extrem General: Yes normal to inspection Psych Mental Status: mental status grossly normal Office Procedures EKG Details: EKG with underlying sinus rhythm at 78/Min; no significant ST-T changes and otherwise unremarkable. [place]. [id number], Complete Assessment & Plan Assessment & Plan (1) Syncope: Code(s): R55 - Syncope and collapse Category: Medical Qualifiers: Syncope type: unspecified Qualified Code(s): R55 - Syncope and collapse Plan Uncertain etiology for her symptoms. Her blood pressure does not seem to be necessarily low and in fact slightly high. We will get an echocardiogram and a tilt-table test. Based on the findings, we can decide accordingly. Orders: Orders CA echo transthoracic complete Today R55 - Syncope and collapse ECG Tilt Table Test Today R55 - Syncope and collapse Coding Level of Care Code New Pt Level 3 (55085) Diagnoses Syncope, unspecified syncope type R55 Syncope type: unspecified CPT Codes EKG - CPT: 19924-[id number], Complete ([id number])
== END 2023-12-01 14:30 | disposition home or self-care (01) ==
PROVIDERS: PCP Physician Assistant; Visit Provider Internal Medicine
DX: R55 Syncope and collapse (principal)
CPT/HCPCS: 93010; 99213

== ENCOUNTER → 2023-12-01 13:56 | Outpatient (BNVA) | payer OTHER, SELFPAY | PROVIDERS: PCP Physician Assistant; Visit Provider Internal Medicine | DX: R55 Syncope and collapse (principal) | CPT/HCPCS: 93005; 99212 ==

== ENCOUNTER 2023-12-16 14:21 | Outpatient (AMB) | payer OTHER, SELFPAY ==
[2023-12-16 14:26] VITALS: BP 142/100; PULSE 80; O2SAT 98; BMI 30.9
--- NOTE | 2023-12-16 14:26 | A.OFFPC_ITS ---
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 Accompanied by: Self / Same As Patient Allergies lamotrigine [From Lamictal] Adverse Reaction (Intermediate, Verified 12/16/23 14:35) Rash CLindamycin Allergy (Unknown, Uncoded 12/16/23 14:35) rash latex Allergy (Unknown, Uncoded 12/16/23 14:35) Swelling Medication List - Last Reconciled 12/16/23 by Cuco Roth PA-C acetaminophen 650 mg PO Q4H PRN albuterol sulfate 90 mcg/actuation (Ventolin HFA) 1 inh inhalation QID 30 days aripiprazole 5 mg PO DAILY 7 days cholecalciferol (vitamin D3) 10 mcg PO DAILY epinephrine (EpiPen 2-Shahzad) 0.3 mg (0.3 mL) IM ONCE PRN 30 days hydroxyzine HCl 10 mg PO ONCE PRN 30 days ibuprofen 0 mg PO oxcarbazepine (Trileptal) 300 mg PO BID tizanidine 2 mg PO BEDTIME 14 days Tobacco use date assessed: 08/30/23 Dental Screening Dental Screen Date: 08/30/23 HPI follow up results from MRI & Holter HPI Details Patient is a 33-year-old female here today for follow-up visit Patient continuing to a myriad of symptoms including left hip pain, hand paresthesias, GI upset and vomiting, presyncopal episodes. Has visit we did discuss her using metformin 2000 mg daily for her PCOS diagnosis. She has stopped using metformin though her presyncopal episodes and dizziness are still evident. Has followed up with a computer specialist whom will be sending patient for echocardiogram and tilt-table test. She has underwent a brain MRI which did not show any acute intracranial pathology though does have some white matter nonspecific abnormalities-- > Several nonspecific FLAIR hyperintense foci involving the periventricular white matter and the cerebellar vermis at midline Interval history--> Patient was seen at [facility] for 2 month history of gradually worsening and more frequent headaches. . EKG done which was essentially normal though did show slightly prolonged QT. For the syncope and fatigue She denied any seizure-like activity. She did undergo testing for ROMERO, STIs, tick-borne illnesses. She was found to be severely dehydrated and was given IV fluids. She also over the last 3-4 months having pretty severe left hip pain radiating into knee and down into foot and ankle. No trauma reported. She did get x-rays without any significant arthritis or inflammation noted. She is followed by a psychiatrist whom is making med changes Her lamotrigine was discontinued as it caused her rash. She is continuing on Abilify 5 and recently started on Trileptal. Interestingly enough her hip pain has gotten better with starting Trileptal. PFSH Medical History Weight gain Migraines PCOS (polycystic ovarian syndrome) Asthma Acquired hypothyroidism Surgical History Hx of tooth extraction Hx of wisdom tooth extraction History of surgery Family History Father Unknown family medical history Mother Asthma Maternal Uncle Hx of thyroidectomy Family/Other Mental health disorder Social History Household Members: Family Housing: House Alcohol intake: current Alcohol intake frequency: holidays/special occasions only Patient Tobacco Use Status: Never used Tobacco e-Cigarette/Vaping Use: Never Used Second Hand Smoke Exposure: Yes service: No Current occupational status: employed Current occupation: [employer] Cognitive needs: No Hearing needs: No Vision needs: No Questionnaire Thrive Questionnaire Date Thrive assessed: 08/30/23 Are you currently unemployed and looking for a job?: I choose not to answer this question BOB-7 AMB Questionnaire BOB-7 Date BOB - 7 assessed: 08/30/23 Source: Developed by Drs. Desean Velásquez, Corinna Donaldson, Qamar Richter and colleagues, with an educational keanu from [employer]. Review of Systems Const Denies headache(s) Eyes Denies loss of vision ENT Reports vertigo, Reports dizziness, Denies headache(s) and Denies sore throat Card Denies chest pain, Reports syncope, Denies leg edema and Denies lightheadedness Resp Denies cough, Denies hemoptysis and Denies wheezing GI Denies abdominal pain, Denies melena, Denies constipation, Denies diarrhea and Denies vomiting Denies urinary frequency, Denies dysuria and Denies urinary urgency Musc Denies arthralgias, Denies joint swelling, Denies numbness and Denies tingling Neuro Denies Abnormal speech present, Denies behavioral changes, Reports vertigo, Reports dizziness, Reports syncope, Denies headache(s), Denies loss of vision, Denies memory loss, Denies numbness and Denies tingling Psych Denies anxiety, Denies behavioral changes, Denies depression, Denies memory loss and Denies panic attacks Artemio/Lymph Denies easy bleeding and Denies easy bruising Aller/Immun Denies wheezing Physical exam (Primary Care) Vital Signs: Last Vital Signs Pulse 80 12/16/23 14:26 BP 142/100 H 12/16/23 14:26 Pulse Ox 98 12/16/23 14:26 Oxygen Delivery Method Room Air 12/16/23 14:26 BMI result Body Mass Index 30.9 Tobacco/Smoking Status: Tobacco use Status Tobacco use date assessed 08/30/23 12/16/23 14:31 Patient Tobacco Use Status Never used Tobacco 12/16/23 14:31 e-Cigarette/Vaping Use Never Used 12/16/23 14:31 Thrive Assessment: Date of Thrive Assessment Date Thrive assessed 08/30/23 12/16/23 14:31 Const General: healthy appearing, no acute distress, alert and awake Nutritional Appearance: well nourished Orientation/consciousness: oriented to person, oriented to place and oriented to time HENMT Ears: TM's normal bilaterally General nose exam: Normal nasal mucous membranes and turbinates present Eyes Conjunctivae: conjunctivae normal Sclerae: sclerae normal Pupils: Equal, round and reactive pupils present Neck Neck: Yes no lymphadenopathy and Yes no JVD Thyroid: Thyroid normal Carotids: no bruits Resp Effort & Inspection: normal respiratory effort and not tachypneic Auscultation: no crackles, no rales, no rhonchi and no wheezes Cardio Rate: regular rate Rhythm: regular rhythm Heart sounds: no murmurs and normal S1 and S2 GI Palpation (GI): Soft to palpation, nontender, no hepatomegaly and no splenomegaly Auscultation: normal bowel sounds Skin General skin exam: no rashes or lesions noted and dry skin Neuro General: oriented to person, oriented to place and oriented to time Cranial nerves: Yes Equal, round and reactive pupils present Speech: No Abnormal speech present Gait exam (Neuro): Normal gait present Motor exam (neuro): no tremor noted Extrem Right upper extremity: full ROM Left upper extremity: full ROM Right lower extremity: full ROM; no edema Left lower extremity: full ROM; no edema Psych Mental Status: mental status grossly normal Speech and movement: Normal speech and movement present Affect: normal affect Attitude: cooperative Thought process: Normal thought process present Assessment and Plan Assessment & Plan (1) Pre-syncope: Code(s): R55 - Syncope and collapse Plan: At this time unclear etiology to patient's symptoms. She was started on Trileptal 300 reports some of her hip pain getting better. She still reports dizziness with changes in her body position. Blood pressure today in office slightly elevated. Has followed up with Cardiology whom will be sending patient for echocardiogram and a tilt-table test. (2) Bipolar disorder: Code(s): F31.9 - Bipolar disorder, unspecified Qualifiers: Active/Remission status: currently active Current bipolar episode type: depressed Current episode severity: moderate Qualified Code(s): F31.32 - Bipolar disorder, current episode depressed, moderate Plan: Patient followed by Psychiatry has been making med changes to help control her mood. She was recently placed on Trileptal which seems to have been helpful for her mood. Interestingly enough it has helped reduce her pain in her right hip as well. Orders: Orders TSH reflex Free T4 Today R94.31 - Abnormal electrocardiogram [ECG] [EKG] Coding Level of Care Code Est Pt Level 3 (21792) Diagnoses Pre-syncope R55 Bipolar affective disorder, currently depressed, moderate F31.32 Active/Remission status: currently active Current bipolar episode type: depressed Current episode severity: moderate
== END 2023-12-16 15:02 | disposition home or self-care (01) ==
PROVIDERS: PCP Physician Assistant; Visit Provider Physician Assistant
DX: R55 Syncope and collapse (principal); F31.32 Bipolar disorder, current episode depressed, moderate

== ENCOUNTER → 2023-12-16 14:21 | Outpatient (BNVA) | payer OTHER, SELFPAY | PROVIDERS: PCP Physician Assistant; Visit Provider Physician Assistant | DX: R55 Syncope and collapse (principal); F31.32 Bipolar disorder, current episode depressed, moderate | CPT/HCPCS: 99212 ==

== ENCOUNTER 2023-12-29 12:44 | Outpatient (REF) | payer OTHER, SELFPAY ==
--- NOTE | 2023-12-29 12:47 | EEG_ITS ---
FINDINGS: The waking background activity consists of a low to moderate voltage 11 hertz posterior alpha frequency, intermixed anteriorly with low-voltage fast frequencies. Drowsiness is characterized by diffuse theta slowing. No sleep stages are identified. Photic stimulation is without activation. Hyperventilation was omitted. No focal, lateralizing, or paroxysmal discharges are seen. IMPRESSION: This waking EEG is within normal limits. MD SWATHI Robison/JACK / [id number]
== END 2023-12-29 12:45 | disposition home or self-care (01) ==
LOC: HO.NEURO 12:44
PROVIDERS: PCP Physician Assistant; Visit Provider Physician Assistant
DX: R55 Syncope and collapse (principal)
CPT/HCPCS: 95816

== ENCOUNTER 2024-02-09 10:13 | Outpatient (REF) | payer OTHER, SELFPAY ==
[2024-02-09 11:53] LABS: Erythrocyte Sedimentation Rate 13 MM/HR (0-20)
[2024-02-09 11:58] LABS: Anion Gap 14 (12-20); Blood Urea Nitrogen 8 mg/dL (9-16); Calcium 9.4 mg/dL (8.4-10.2); Carbon Dioxide 22 mmol/L (22-29); Chloride 106 mmol/L (96-108); Estimated Glomerular Filt Rate > 60; Glucose Random 85 mg/dL (60-115); Potassium 3.6 mmol/L (3.3-5.1); Sodium 138 mmol/L (135-145)
[2024-02-11 01:33] LABS: Lyme Abs Screen <0.90 index
== END 2024-02-09 10:14 | disposition home or self-care (01) ==
LOC: HO.LAB 10:13
PROVIDERS: PCP Physician Assistant; Visit Provider Psychiatry & Neurology Neurology
DX: R55 Syncope and collapse (principal)
CPT/HCPCS: 36415; 80048; 85652; 86617; 86618

== ENCOUNTER 2024-05-31 13:37 | Outpatient (REF) | payer OTHER, SELFPAY ==
--- OUTSIDE RECORDS SUMMARY | 2024-05-31 18:48 | XMS_ITS | Encounter Summary ---
Author Organization [facility] Address [address] [place] [address] Care Team Providers Care Apigee Developer Name Role Phone Erika Lopez MD Primary Care Provider Lubna Bart Lopez MD Primary Care Provider + [phone] Yobani Arredondo MD Primary Care Provider [phone] Encounter Details Date Type Department Care Team (Late st Contact Info) Description 07/28/2013 Orders Only [facility] Internal Medicine [address] [place] [address] Erika Lopez MD Social History Tobacco Use [...] of this encounter Procedures * Due to [place] state law, this organization might not be sharing negative HIV tests. Procedure Name Priority Date/Time Associated Diagnosis Comments HCG, (HUMAN CHORIONIC GONADOTROPIN), TOTAL, QUANTITATIVE Routine 07/28/2013 11:53 AM EDT Irregular periods TSH, 3RD GENERATION Routine 07/28/2013 1 1:53 AM EDT Irregular periods PROLACTIN Routine 07/28/2013 11:53 AM EDT Irregular periods documented in this encounter Results * Due to [place] state law, this organization might not be sharing negative HIV tests. * (ABNORMAL) PROLACTIN (07/28/2013 11:53 AM EDT) Prolactin 31.1(H) ng/mL [facility] Comment: {PROLACTIN {[id number]) ?Reference Range Females ?Non- ?3.0-30.0 ? 10.0-209.0 ?Postmenopausal ?2.0-20.0 07/28/2013 11:5 3 AM EDT 07/28/2013 9:55 PM EDT Narrative Resulting Agency Comment [id number] us Erika Lopez MD LAB SAME DAY RESULT Final Result [facility] [address] [place] [address] * (ABNORMAL) TSH, 3RD GENERATION (07/28/2013 11:53 AM EDT) TSH 4.85(H) mIU/L [facility] Comment: {TSH {[id number]) ?Reference Range ?> or = 20 Years ??0.40-4.50 ? Ranges ?First trimester ?0.26-2.66 ?Second trimester ?? 0.55-2.73 ?Third trimester ?0.43-2.91 07/28/2013 11:5 3 AM EDT 07/28/2013 9:55 PM EDT Narrative Resulting Agency Comment [id number] Erika Lopez MD LABORATORY Final Resu lt Performing Organization Address [facility] de Phone Number [facility] [address] [place] [phone] * HCG, (HUMAN CHORIONIC GONADOTROPIN), TOTAL, QUANTITATIVE (07/28/2013 11:53 AM EDT) HCG, Total, Quantitative <2 mIU/mL [facility] Comment: {HCG, TOTAL, QN {[id number]) Reference Range Non or premenopausal ?<5 Postmenopausal ? <10 Values from different assay methods may vary. The use of this assay to monitor or to diagnose patients with cancer or any condition unrelated to has not been cleared or approved by the FDA or the client experience administrator of the assay. 07/28/2013 11:5 3 AM EDT 07/28/2013 9:55 PM EDT Narrative Resulting Agency Comment [id number] Erika Lopez MD LAB SAME DAY RESULT Final Result Performing Organization Address [facility] Co de Phone Number [facility] [address] [place] [address] documented in this encounter Visit Diagnoses Diagnosis Irregular periods Irregular menstrual cycle documented in this encounter Care Teams Apigee Developer Relationship Specialty Start Date End Date Erika Lopez MD PCP - General 04/22/13 03/12/14 Bart Cortez MD PCP - General Internal Medicine 03/13/14 07/19/14 Yobani Arredondo MD PCP - General Family Medicine 07/20/14 documented as of this encounter
--- OUTSIDE RECORDS SUMMARY | 2024-05-31 18:48 | XMS_ITS | Encounter Summary ---
Author Organization [facility] Address [address] [place] [address] Care Team Providers Care Pt Sitter Name Role Phone Erika Lopez MD Primary Care Provider Lubna Bart Lopez MD Primary Care Provider + [phone] Yobani Arredondo MD Primary Care Provider [phone] Encounter Details Date Type Department Care Team (Late st Contact Info) Description 08/29/2013 Orders Only [facility] Internal Medicine [address] [place] [phone] Erika Lopez MD Social History Tobacco Use [...] of this encounter Procedures * Due to [place] [employer] law, this organization might not be sharing negative HIV tests. Procedure Name Priority Date/Time Associated Diagnosis Comments THYROID PEROXIDASEANTIBODIES Routine 08/29/2013 5:13 PM EDT Hypothyroidism T3 (TRIIODOTHYRONINE), TOTAL, SERUM Routine 08/29/2013 5:13 PM EDT Hypothyroidism TSH, 3RD GENERATION Routine 08/29/2013 5 :13 PM EDT Hypothyroidism T4, FREE, SERUM Routine 08/29/2013 5:13 PM EDT Hypothyroidism documented in this encounter Results * Due to [place] state law, this organization might not be sharing negative HIV tests. * T3 (TRIIODOTHYRONINE), TOTAL, SERUM (08/29/2013 5:13 PM EDT) T3 Total 92 76 - 181 ng/dL [facility] Comment:{T3, TOTAL {[id number]) 08/29/2013 5:13 PM EDT 08/29/2013 11:59 PM EDT Narrative Resulting Agency Comment [id number] us Erika Lopez MD LABORATORY Final Resu lt [facility] [address] [place] [id number] * T4, FREE, SERUM (08/29/2013 5:13 PM EDT) FT4 1.0 0.8 - 1.8 ng/dL [facility] Comment:{T4, FREE {[id number]) 08/29/2013 5:13 PM EDT 08/29/2013 11:59 PM EDT Narrative Resulting Agency Comment [id number] us Erika Lopez MD LABORATORY Final Resu lt [facility] [address] [place] [address] * THYROID PEROXIDASEANTIBODIES (08/29/2013 5:13 PM EDT) Thyroperoxidase Ab 1 <9 IU/mL Q [facility] Comment:{THYROID PEROXIDASE ANTIBODIES {[id number]) 08/29/2013 5:13 PM EDT 08/29/2013 11:59 PM EDT Narrative Resulting Agency Comment [id number] us Erika Lopez MD LABORATORY Final Resu lt Performing Organization Address [facility] de Phone Number [facility] [address] [place] [address] * TSH, 3RD GENERATION (08/29/2013 5:13 PM EDT) TSH 1.62 mIU/L [facility] Comment: {TSH {[id number]) ?Reference Range ?> or = 20 Years ??0.40-4.50 ? Ranges ?First trimester ?0.26-2.66 ?Second trimester ?? 0.55-2.73 ?Third trimester ?0.43-2.91 08/29/2013 5:13 PM EDT 08/29/2013 11:59 PM EDT Narrative Resulting Agency Comment [id number] Erika Lopez MD LABORATORY Final Resu lt Performing Organization Address [facility] de Phone Number [facility] [address] [place] [address] documented in this encounter Visit Diagnoses Diagnosis Hypothyroidism Unspecified hypothyroidism documented in this encounter Care Teams Pt Sitter Relationship Specialty Start Date End Date Erika Lopez MD PCP - General 04/22/13 03/12/14 Bart Cortez MD PCP - General Internal Medicine 03/13/14 07/19/14 Yobani Arredondo MD PCP - General Family Medicine 07/20/14 documented as of this encounter
--- OUTSIDE RECORDS SUMMARY | 2024-05-31 18:48 | XMS_ITS | Clinical Summary ---
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
--- OUTSIDE RECORDS SUMMARY | 2024-05-31 18:48 | XMS_ITS | Encounter Summary ---
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 [...] of this encounter Procedures * Due to [place] [employer] law, this organization might not be sharing [...] in this encounter Results * Due to [employer] law, this organization might not be sharing [...] INBSKT RTG Final Result Performing Organization Address [facility] Co de Phone Number MUSE EKG SYSTEM * HCG, (HUMAN CHORIONIC GONADOTROPIN), TOTAL, QUANTITATIVE (12/19/2013 12:10 PM EDT) [facility] HCG, Total, Quantitative 2 mIU/mL [facility] Comment: {HCG, TOTAL, QN {[id number]) Reference Range Non or premenopausal ?<5 Postmenopausal ? <10 Values from different assay methods may vary. The use of this assay to monitor or to diagnose patients with cancer or any condition unrelated to has not been cleared or approved by the FDA or the furnace repairer helper of the assay. 12/19/2013 12:1 0 PM EDT 12/20/2013 4:29 AM EDT Narrative Resulting Agency Comment [id number] Erika Lopez MD LAB SAME DAY RESULT Final Result Performing Organization Address [facility] de Phone Number [facility] [address] [place] [address] * HEPATIC FUNCTION PANEL (12/19/2013 12:10 PM EDT) Pathologist [facility] Protein Total (Serum) 7.1 6.1 - 8.1 g/dL [facility] Comment:{PROTEIN, TOTAL {[id number]) Albumin 4.1 3.6 - 5.1 g/dL [facility] Comment:{ALBUMIN {[id number]) Globulin 3.0 1.9 - 3.7 g/dL (calc) [facility] Comment:{GLOBULIN {[id number]) Albumin/Globulin 1.4 1.0 - 2.5 (calc) [facility] Comment:{ALBUMIN/GLOBULIN RA VINAYAK {[id number]) Bilirubin Total 0.5 0.2 - 1.2 mg/dL [facility] Comment:{BILIRUBIN, TOTAL {[id number]) Bilirubin Direct 0.1 < OR = 0.2 mg/dL [facility] Comment:{BILIRUBIN, DIRECT { [id number]) Bilirubin Indirect 0.4 0.2 - 1.2 mg/dL (calc) [facility] Comment:{BILIRUBIN, INDIRECT {[id number]) Alkaline phosphatase 64 33 - 115 U/L [facility] Comment:{ALKALINE PHOSPHATAS E {[id number]) AST (SGOT) 13 10 - 30 U/L [facility] Comment:{AST {[id number]) ALT (SGPT) 6 6 - 29 U/L [facility] Comment:{ALT {[id number]) 12/19/2013 12:1 0 PM EDT 12/20/2013 4:29 AM EDT Narrative Resulting Agency Comment [id number] us Erika Lopez MD LABORATORY Final Resu lt [facility] [address] [place] [address] * (ABNORMAL) TSH, 3RD GENERATION (12/19/2013 12:10 PM EDT) TSH 4.67(H) mIU/L [facility] Comment: {TSH {[id number]) ?Reference Range ?> or = 20 Years ??0.40-4.50 ? Ranges ?First trimester ?0.26-2.66 ?Second trimester ?? 0.55-2.73 ?Third trimester ?0.43-2.91 12/19/2013 12:1 0 PM EDT 12/20/2013 4:29 AM EDT Narrative Resulting Agency Comment [id number] us Erika Lopez MD LABORATORY Final Resu lt [facility] [address] [place] [address] * BASIC METABOLIC PANEL WITH (GFR) (12/19/2013 12:10 PM EDT) Glucose 86 65 - 99 mg/dL [facility] Comment: {GLUCOSE {[id number]) ? Fasting reference interval Urea Nitrogen Blood (BUN) 10 7 - 25 mg/dL [facility] Comment:{UREA NITROGEN (BUN) {[id number]) Creatinine 0.72 0.50 - 1.10 mg/dL [facility] Comment:{CREATININE {[id number]) GFR 117 > OR = 60 mL/min/1. 73m2 [facility] Comment:{eGFR NON-AFR. AMERI CAN {[id number]) GFR () 136 > OR = 60 mL/min/1. 73m2 [facility] Comment:{eGFR AMERIC AN {[id number]) BUN/Creatinine Ratio NOT APPLICABLE 6 - 22 (calc) [facility] Comment:{BUN/CREATININE RATI O {[id number]) Sodium 141 135 - 146 mmol/L [facility] Comment:{SODIUM {[id number]) Potassium 3.6 3.5 - 5.3 mmol/L [facility] Comment:{POTASSIUM {[id number]) Chloride 106 98 - 110 mmol/L [facility] Comment:{CHLORIDE {[id number]) Carbon dioxide 24 19 - 30 mmol/L [facility] Comment:{CARBON DIOXIDE {[id number]) Calcium 9.4 8.6 - 10.2 mg/dL [facility] Comment:{CALCIUM {[id number]) 12/19/2013 12:1 0 PM EDT 12/20/2013 [...] needs for GFR calculation. Resulting Agency Comment [id number] us Erika Lopez MD LABORATORY Final Resu lt [facility] [address] [place] [address] * (ABNORMAL) CBC INCLUDES DIFFERENTIAL AND PLATELET COUNT (12/19/2013 12:10 PM EDT) WBC 10.6 3.8 - 10.8 Thousand/ uL [facility] Comment:{WHITE BLOOD CELL CO UNT {[id number]) RBC 4.69 3.80 - 5.10 Million/u L [facility] Comment:{RED BLOOD CELL COUN T {[id number]) Hemoglobin 13.6 11.7 - 15.5 g/dL [facility] Comment:{HEMOGLOBIN {[id number]) Hematocrit 43.4 35.0 - 45.0 % [facility] Comment:{HEMATOCRIT {[id number]) MCV 92.5 80.0 - 100.0 fL [facility] Comment:{MCV {[id number]) MCH 29.1 27.0 - 33.0 pg [facility] Comment:{MCH {[id number]) MCHC 31.5(L) 32.0 - 36.0 g/dL [facility] Comment:{MCHC {[id number]) RDW 14.3 11.0 - 15.0 % [facility] Comment:{RDW {[id number]) PLT 323 140 - 400 Thousand/ uL [facility] Comment:{PLATELET COUNT {[id number]) MPV 9.0 7.5 - 11.5 fL [facility] Comment:{MPV {[id number]) Neutrophils # 7187 1500 - 7800 cells/uL [facility] Comment:{ABSOLUTE NEUTROPHIL S {[id number]) Lymphocytes # 2661 850 - 3900 cells/uL [facility] Comment:{ABSOLUTE LYMPHOCYTE S {[id number]) Monocytes # 594 200 - 950 cells/uL [facility] Comment:{ABSOLUTE MONOCYTES {[id number]) Eosinophils # 117 15 - 500 cells/uL [facility] Comment:{ABSOLUTE EOSINOPHIL S {[id number]) Basophils # 42 0 - 200 cells/uL [facility] Comment:{ABSOLUTE BASOPHILS {[id number]) Neutrophils % 67.8 % [facility] Comment:{NEUTROPHILS {[id number]) Lymphocytes % 25.1 % [facility] Comment:{LYMPHOCYTES {[id number]) Monocytes % 5.6 % [facility] Comment:{MONOCYTES {[id number]) Eosinophils % 1.1 % [facility] Comment:{EOSINOPHILS {[id number]) Basophils % 0.4 % [facility] Comment:{BASOPHILS {[id number]) 12/19/2013 12:1 0 PM EDT 12/20/2013 4:29 AM EDT Narrative Resulting Agency Comment [id number] Erika Lopez MD LAB SAME DAY RESULT Final Result [facility] [address] [place] [address] documented in this encounter Visit Diagnoses Diagnosis Syncope Syncope and collapse documented in this encounter Care Teams Propulsion Machinery Service Engineer Relationship Specialty Start Date End Date Erika Lopez MD PCP - General 04/22/13 03/12/14 Bart Cortez MD PCP - General Internal Medicine 03/13/14 07/19/14 Yobani Arredondo MD PCP - General Family Medicine 07/20/14 documented as of this encounter
--- OUTSIDE RECORDS SUMMARY | 2024-05-31 18:48 | XMS_ITS | Encounter Summary ---
Author Organization [facility] Address [address] [place] [address] Care Team Providers Care Sales And Marketing Assistant Name Role Phone Erika Lopez MD Primary Care Provider Lubna Bart Lopez MD Primary Care Provider + [phone] Yobani Arredondo MD Primary Care Provider [phone] Encounter Details Date Type Department Care Team (Late st Contact Info) Description 08/04/2013 Orders Only [facility] [address] [place] [address] Margarette Bailey PA [address] [place] [address] Social History Tobacco Use Types Packs/Day Years [...] encounter Progress Notes * Renetta Lerner - 08/09/2013 10:02 AM EDTQuick Note: [...] this encounter Procedures * Due to [place] state law, this organization might not be [...] this encounter Results * Due to [place] state law, this organization might not be sharing negative HIV tests. * (ABNORMAL) CBC INCLUDES DIFFERENTIAL AND PLATELET COUNT (08/04/2013 5:43 PM EDT) WBC 15.9(H) 3.8 - 10.8 Thousand/ uL [facility] Comment:{WHITE BLOOD CELL CO UNT {[id number]) RBC 5.01 3.80 - 5.10 Million/u L [facility] Comment:{RED BLOOD CELL COUN T {[id number]) Hemoglobin 14.2 11.7 - 15.5 g/dL [facility] Comment:{HEMOGLOBIN {[id number]) Hematocrit 44.4 35.0 - 45.0 % [facility] Comment:{HEMATOCRIT {[id number]) MCV 88.7 80.0 - 100.0 fL [facility] Comment:{MCV {[id number]) MCH 28.4 27.0 - 33.0 pg [facility] Comment:{MCH {[id number]) MCHC 32.0 32.0 - 36.0 g/dL [facility] Comment:{MCHC {[id number]) RDW 13.8 11.0 - 15.0 % [facility] Comment:{RDW {[id number]) PLT 354 140 - 400 Thousand/ uL [facility] Comment:{PLATELET COUNT {[id number]) MPV 7.5 7.5 - 11.5 fL [facility] Comment:{MPV {[id number]) Neutrophils # 73430(H) 1500 - 7800 cells/uL [facility] Comment:{ABSOLUTE NEUTROPHIL S {[id number]) Lymphocytes # 3530 850 - 3900 cells/uL [facility] Comment:{ABSOLUTE LYMPHOCYTE S {[id number]) Monocytes # 1034(H) 200 - 950 cells/uL [facility] Comment:{ABSOLUTE MONOCYTES {[id number]) Eosinophils # 95 15 - 500 cells/uL [facility] Comment:{ABSOLUTE EOSINOPHIL S {[id number]) Basophils # 80 0 - 200 cells/uL [facility] Comment:{ABSOLUTE BASOPHILS {[id number]) Neutrophils % 70.2 % [facility] Comment:{NEUTROPHILS {[id number]) Lymphocytes % 22.2 % [facility] Comment:{LYMPHOCYTES {[id number]) Monocytes % 6.5 % [facility] Comment:{MONOCYTES {[id number]) Eosinophils % 0.6 % [facility] Comment:{EOSINOPHILS {[id number]) Basophils % 0.5 % [facility] Comment:{BASOPHILS {[id number]) 08/04/2013 5:43 PM EDT 08/04/2013 5:47 PM EDT Narrative Resulting Agency Comment [id number] Margarette OKEEFE LAB SAME DAY RESULT Final Result [facility] [address] [place] [address] * BASIC METABOLIC PANEL WITH (GFR) (08/04/2013 5:43 PM EDT) Glucose 83 65 - 99 mg/dL [facility] Comment: {GLUCOSE {[id number]) ? Fasting reference interval Urea Nitrogen Blood (BUN) 10 7 - 25 mg/dL [facility] Comment:{UREA NITROGEN (BUN) {[id number]) Creatinine 0.75 0.50 - 1.10 mg/dL [facility] Comment:{CREATININE {[id number]) GFR 112 > OR = 60 mL/min/1. 73m2 [facility] Comment:{eGFR NON-AFR. AMERI CAN {[id number]) GFR () 129 > OR = 60 mL/min/1. 73m2 [facility] Comment:{eGFR AMERIC AN {[id number]) BUN/Creatinine Ratio NOT APPLICABLE 6 (calc) [facility] Comment:{BUN/CREATININE RATI O {[id number]) Sodium 137 135 - 146 mmol/L [facility] Comment:{SODIUM {[id number]) Potassium 3.7 3.5 - 5.3 mmol/L [facility] Comment:{POTASSIUM {[id number]) Chloride 104 98 - 110 mmol/L [facility] Comment:{CHLORIDE {[id number]) Carbon dioxide 25 19 - 30 mmol/L [facility] Comment:{CARBON DIOXIDE {[id number]) Calcium 9.6 8.6 - 10.2 mg/dL [facility] Comment:{CALCIUM {[id number]) 08/04/2013 5:43 PM EDT 08/04/2013 5:47 [...] needs for GFR calculation. Resulting Agency Comment [id number] us Margarette OKEEFE LABORATORY Final Result Performing Organization Address [facility] Co de Phone Number [facility] [address] [place] [address] * STREPTOCOCCUS, GROUP A CULTURE (08/04/2013 4:49 PM EDT) Pathologist [facility] Culture, Streptococci Group A, Throat SEE NOTE [facility] Comment: {STREPTOCOCCUS, GROUP A CULTURE {[id number]) ??STREPTOCOCCUS, GROUP A CULTURE ??MICRO NUMBER: ?[id number] ??TEST STATUS: ? FINAL ??SPECIMEN SOURCE: ?? THROAT ??SPECIMEN QUALITY: ??ADEQUATE ??RESULT: ?No beta hemolytic Streptococci isolated 08/04/2013 4:49 PM EDT 08/04/2013 5:01 PM EDT Narrative Resulting Agency Comment [id number] us Osmel Lozano MD LABORATORY Final Resul t Performing Organization Address City/[facility] Co de Phone Number [facility] [address] [place] [address] * CULTURE, URINE, ROUTINE (08/04/2013 4:49 PM EDT) Bacteria culture (Urine) SEE NOTE [facility] Comment: {CULTURE, URINE, ROUTINE {[id number]) ??CULTURE, URINE, ROUTINE ??MICRO NUMBER: ?[id number] ??TEST STATUS: ? FINAL ??SPECIMEN SOURCE: ?? URINE ??SPECIMEN QUALITY: ??ADEQUATE ??RESULT: ?No Growth 08/04/2013 4:49 PM EDT 08/04/2013 5:01 PM EDT Narrative Resulting Agency Comment [id number] us Osmel Lozano MD LABORATORY Final Resul t [facility] [address] [place] [address] * (ABNORMAL) URINALYSIS, MICROSCOPIC (08/04/2013 4:49 PM EDT) WBC (Urine) 0-5 < OR = 5 /HPF [facility] Comment:{WBC {[id number]) RBC (Urine Sed) 0-3 < OR = 3 /HPF [facility] Comment:{RBC {[id number]) Epithelial cells.squamous (Urine sed) 0-5 < OR = 5 /HPF [facility] Comment:{SQUAMOUS EPITHELIAL CELLS {[id number]) Bacteria (Urine) MODERATE(A) NONE SEEN /HPF [facility] Comment:{BACTERIA {[id number]) Service comment 01 MODERATE MUCOUS THREADS [facility] Comment:{COMMENTS {[id number]) Service comment 01 See Below [facility] Comment: {NOTE {[id number]) This urine was analyzed for the presence of WBC, RBC, bacteria, casts, and other formed elements. Only those elements seen were reported. 08/04/2013 4:49 PM EDT 08/04/2013 5:01 PM EDT Narrative Resulting Agency Comment [id number] us Osmel Lozano MD LAB SAME DAY RESULT Final R esult [facility] [address] [place] [address] documented in this encounter Visit Diagnoses Diagnosis Urinary tract infection Urinary tract infection, site not specified Sore throat Acute pharyngitis Viral gastroenteritis Intestinal infection due to other organism, not elsewhere classified documented in this encounter Care Teams Sales And Marketing Assistant Relationship Specialty Start Date End Date Erika Lopez MD PCP - General 04/22/13 03/12/14 Bart Cortez MD PCP - General Internal Medicine 03/13/14 07/19/14 Yobani Arredondo MD PCP - General Family Medicine 07/20/14 documented as of this encounter
--- OUTSIDE RECORDS SUMMARY | 2024-05-31 18:48 | XMS_ITS | Encounter Summary ---
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 Procedure Name Priority Date/Time Associated Diagnosis Comments THYROID STIMULATING HORMONE (TSH) WITH FREE T4 REFLEX, SERUM Routine 09/03/2014 3:52 PM EDT Hypothyroidism due to acquired atrophy of thyroid documented in this encounter Results * Due to [place] [employer] law, this organization might not be sharing negative HIV tests. * THYROID STIMULATING HORMONE (TSH) WITH FREE T4 REFLEX, SERUM (09/03/2014 3:52 PM EDT) TSH 0.73 mIU/L [facility] Comment: {TSH W/REFLEX TO FT4 {[id number]) ?Reference Range ?> or = 20 Years ??0.40-4.50 ? Ranges ?First trimester ?0.26-2.66 ?Second trimester ?? 0.55-2.73 ?Third trimester ?0.43-2.91 09/03/2014 3:52 PM EDT 09/04/2014 12:37 AM EDT Narrative Resulting Agency Comment [id number] us Louise Washington [employer] LABORATORY Final Result [facility] [address] [place] [address] documented in this encounter Visit Diagnoses Diagnosis Hypothyroidism due to acquired atrophy of thyroid documented in this encounter Care Teams Cam Specialist Relationship Specialty Start Date End Date Yobani Arredondo MD PCP - General Family Medicine 07/20/14 documented as of this encounter
--- OUTSIDE RECORDS SUMMARY | 2024-05-31 18:48 | XMS_ITS | Encounter Summary ---
Author Organization [facility] Address [address] [place] [address] Care Team Providers Care Maintenance Mechanic Helper Name Role Phone Erika Lopez MD Primary Care Provider Lubna Bart Lopez MD Primary Care Provider + [phone] Yobani Arredondo MD Primary Care Provider [phone] Encounter Details Date Type Department Care Team (Late st Contact Info) Description 08/12/2013 Orders Only [facility] Internal Medicine [address] [place] [address] Erika Lopez MD Social History Tobacco Use [...] of this encounter Procedures * Due to [place] state law, this organization might not be sharing negative HIV tests. Procedure Name Priority Date/Time Associated Diagnosis Comments CBC INCLUDES DIFFERENTIAL AND PLATELET COUNT Routine 08/12/2013 4:17 PM EDT Leukocytosis documented in this encounter Results * Due to [place] state law, this organization might not be sharing negative HIV tests. * (ABNORMAL) CBC INCLUDES DIFFERENTIAL AND PLATELET COUNT (08/12/2013 4:17 PM EDT) WBC 12.9(H) 3.8 - 10.8 Thousand/ uL [facility] Comment:{WHITE BLOOD CELL CO UNT {[id number]) RBC 4.71 3.80 - 5.10 Million/u L [facility] Comment:{RED BLOOD CELL COUN T {[id number]) Hemoglobin 13.8 11.7 - 15.5 g/dL [facility] Comment:{HEMOGLOBIN {[id number]) Hematocrit 42.6 35.0 - 45.0 % [facility] Comment:{HEMATOCRIT {[id number]) MCV 90.4 80.0 - 100.0 fL [facility] Comment:{MCV {[id number]) MCH 29.4 27.0 - 33.0 pg [facility] Comment:{MCH {[id number]) MCHC 32.5 32.0 - 36.0 g/dL [facility] Comment:{MCHC {[id number]) RDW 14.3 11.0 - 15.0 % [facility] Comment:{RDW {[id number]) PLT 307 140 - 400 Thousand/ uL [facility] Comment:{PLATELET COUNT {[id number]) MPV 8.8 7.5 - 11.5 fL [facility] Comment:{MPV {[id number]) Neutrophils # 9056(H) 1500 - 7800 cells/uL [facility] Comment:{ABSOLUTE NEUTROPHIL S {[id number]) Lymphocytes # 2967 850 - 3900 cells/uL [facility] Comment:{ABSOLUTE LYMPHOCYTE S {[id number]) Monocytes # 774 200 - 950 cells/uL [facility] Comment:{ABSOLUTE MONOCYTES {[id number]) Eosinophils # 90 15 - 500 cells/uL [facility] Comment:{ABSOLUTE EOSINOPHIL S {[id number]) Basophils # 13 0 - 200 cells/uL [facility] Comment:{ABSOLUTE BASOPHILS {[id number]) Neutrophils % 70.2 % [facility] Comment:{NEUTROPHILS {[id number]) Lymphocytes % 23.0 % [facility] Comment:{LYMPHOCYTES {[id number]) Monocytes % 6.0 % [facility] Comment:{MONOCYTES {[id number]) Eosinophils % 0.7 % [facility] Comment:{EOSINOPHILS {[id number]) Basophils % 0.1 % [facility] Comment:{BASOPHILS {[id number]) 08/12/2013 4:17 PM EDT 08/13/2013 12:45 AM EDT Narrative Resulting Agency Comment [id number] Erika Lopez MD LAB SAME DAY RESULT Final Result Performing Organization Address City/State/[facility] Co de Phone Number [facility] [address] [place] [address] documented in this encounter Visit Diagnoses Diagnosis Leukocytosis Leukocytosis, unspecified documented in this encounter Care Teams Maintenance Mechanic Helper Relationship Specialty Start Date End Date Erika Lopez MD PCP - General 04/22/13 03/12/14 Bart Cortez MD PCP - General Internal Medicine 03/13/14 07/19/14 Yobani Arredondo MD PCP - General Family Medicine 07/20/14 documented as of this encounter
--- OUTSIDE RECORDS SUMMARY | 2024-05-31 18:49 | XMS_ITS | Encounter Summary ---
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 Not [...] this encounter Procedures * Due to [place] [employer] law, this organization might not be sharing [...] 391 mcg/dL [facility] Comment:{DHEA SULFATE {[id number]) 03/12/2014 3:22 PM EST 03/13/2014 12:21 AM EST Narrative [facility] - 03/13/2014 6:39 PM EST Report Comments: PLEASE DO TSH PREVIOUSLY BOOKED Resulting Agency Comment [id number] us Stormy Canas MD LABORATORY Final Result Performing Organization Address [facility] de Phone Number [facility] [address] [place] [address] * CREATINE KINASE (CK), SERUM (03/12/2014 3:22 PM EST) CPK 43 29 - 143 U/L [facility] Comment:{CREATINE KINASE, TO SANAM {[id number]) 03/12/2014 3:22 PM EST 03/13/2014 12:21 AM EST Narrative [facility] - 03/13/2014 3:57 AM EST Report Comments: PLEASE DO TSH PREVIOUSLY BOOKED Resulting Agency Comment [id number] us Stormy Canas MD LAB SAME DAY RESULT Final Resul t Performing Organization Address [facility] de Phone Number [facility] [address] [place] [address] * BORRELIA BURGDORFERI AB (LYME), EIA WITH REFLEX IGG, IGM WB (03/12/2014 3:22 PM EST) Borrelia burgdorferi Ab < OR = 0.90 index [facility] Comment: {LYME AB SCREEN {[id number]) ? Index ? Interpretation ? ----- ? [...] PM EST 03/13/2014 12:21 AM EST Narrative [facility] - 03/13/2014 10:58 PM EST Report Comments: PLEASE DO TSH PREVIOUSLY BOOKED Resulting Agency Comment [id number] Stormy Canas MD LABORATORY Final Result Performing Organization Address City/State/[facility] Co de Phone Number [facility] [address] [place] [address] * ERYTHROCYTE SEDIMENTATION RATE (ESR), HAN (03/12/2014 3:22 PM EST) Sedimentation Rate Tedegren (ESR) 6 < OR = 20 mm/h [facility] Comment:{SED RATE BY YOSEPH SHORT {[id number]) 03/12/2014 3:22 PM EST 03/13/2014 12:21 AM EST Narrative [facility] - 03/13/2014 4:25 AM EST Report Comments: PLEASE DO TSH PREVIOUSLY BOOKED Resulting Agency Comment [id number] us Stormy Canas MD LAB SAME DAY RESULT Final Resul t [facility] [address] [place] [address] * AMYLASE, SERUM (03/12/2014 3:22 PM EST) Amylase 40 21 - 101 U/L [facility] Comment:{AMYLASE {[id number]) 03/12/2014 3:22 PM EST 03/13/2014 12:21 AM EST Narrative [facility] - 03/13/2014 3:57 AM EST Report Comments: PLEASE DO TSH PREVIOUSLY BOOKED Resulting Agency Comment [id number] us Stormy Canas MD LAB SAME DAY RESULT Final Resul t Performing Organization Address City/[facility] Co de Phone Number [facility] [address] [place] [address] * HEPATIC FUNCTION PANEL (03/12/2014 3:22 PM EST) Protein Total (Serum) 7.4 6.1 - 8.1 g/dL [facility] Comment:{PROTEIN, TOTAL {[id number]) Albumin 4.5 3.6 - 5.1 g/dL [facility] Comment:{ALBUMIN {[id number]) Globulin 2.9 1.9 - 3.7 g/dL (calc) [facility] Comment:{GLOBULIN {[id number]) Albumin/Globulin 1.6 1.0 - 2.5 (calc) [facility] Comment:{ALBUMIN/GLOBULIN RA VINAYAK {[id number]) Bilirubin Total 0.6 0.2 - 1.2 mg/dL [facility] Comment:{BILIRUBIN, TOTAL {[id number]) Bilirubin Direct 0.1 < OR = 0.2 mg/dL [facility] Comment:{BILIRUBIN, DIRECT { [id number]) Bilirubin Indirect 0.5 0.2 - 1.2 mg/dL (calc) [facility] Comment:{BILIRUBIN, INDIRECT {[id number]) Alkaline phosphatase 68 33 - 115 U/L [facility] Comment:{ALKALINE PHOSPHATAS E {[id number]) AST (SGOT) 11 10 - 30 U/L [facility] Comment:{AST {[id number]) ALT (SGPT) 6 6 - 29 U/L [facility] Comment:{ALT {[id number]) 03/12/2014 3:22 PM EST 03/13/2014 12:21 AM EST Narrative [facility] - 03/13/2014 3:57 AM EST Report Comments: PLEASE DO TSH PREVIOUSLY BOOKED Resulting Agency Comment [id number] us Stormy Canas MD LABORATORY Final Result [facility] [address] [place] [address] * BASIC METABOLIC PANEL WITH (GFR) (03/12/2014 3:22 PM EST) Glucose 78 65 - 99 mg/dL [facility] Comment: {GLUCOSE {[id number]) ? Fasting reference interval Urea Nitrogen Blood (BUN) 8 7 - 25 mg/dL [facility] Comment:{UREA NITROGEN (BUN) {[id number]) Creatinine 0.68 0.50 - 1.10 mg/dL [facility] Comment:{CREATININE {[id number]) GFR 122 > OR = 60 mL/min/1. 73m2 [facility] Comment:{eGFR NON-AFR. AMERI CAN {[id number]) GFR () 142 > OR = 60 mL/min/1. 73m2 [facility] Comment:{eGFR AMERIC AN {[id number]) BUN/Creatinine Ratio NOT APPLICABLE (calc) [facility] Comment:{BUN/CREATININE RATI O {[id number]) Sodium 139 135 - 146 mmol/L [facility] Comment:{SODIUM {[id number]) Potassium 4.1 3.5 - 5.3 mmol/L [facility] Comment:{POTASSIUM {[id number]) Chloride 102 98 - 110 mmol/L [facility] Comment:{CHLORIDE {[id number]) Carbon dioxide 25 19 - 30 mmol/L [facility] Comment:{CARBON DIOXIDE {[id number]) Calcium 9.7 8.6 - 10.2 mg/dL [facility] Comment:{CALCIUM {[id number]) 03/12/2014 3:22 PM EST 03/13/2014 12:21 [...] DO TSH PREVIOUSLY BOOKED Resulting Agency Comment [id number] Stormy Canas MD LABORATORY Final Result [facility] [address] [place] [address] * (ABNORMAL) CBC INCLUDES DIFFERENTIAL AND PLATELET COUNT (03/12/2014 3:22 PM EST) WBC 12.6(H) 3.8 - 10.8 Thousand/ uL [facility] Comment:{WHITE BLOOD CELL CO UNT {[id number]) RBC 4.84 3.80 - 5.10 Million/u L [facility] Comment:{RED BLOOD CELL COUN T {[id number]) Hemoglobin 14.2 11.7 - 15.5 g/dL [facility] Comment:{HEMOGLOBIN {[id number]) Hematocrit 44.4 35.0 - 45.0 % [facility] Comment:{HEMATOCRIT {[id number]) MCV 91.8 80.0 - 100.0 fL [facility] Comment:{MCV {[id number]) MCH 29.4 27.0 - 33.0 pg [facility] Comment:{MCH {[id number]) MCHC 32.0 32.0 - 36.0 g/dL [facility] Comment:{MCHC {[id number]) RDW 14.3 11.0 - 15.0 % [facility] Comment:{RDW {[id number]) PLT 287 140 - 400 Thousand/ uL [facility] Comment:{PLATELET COUNT {[id number]) MPV 8.7 7.5 - 11.5 fL [facility] Comment:{MPV {[id number]) Neutrophils # 8946(H) 1500 - 7800 cells/uL [facility] Comment:{ABSOLUTE NEUTROPHIL S {[id number]) Lymphocytes # 2835 850 - 3900 cells/uL [facility] Comment:{ABSOLUTE LYMPHOCYTE S {[id number]) Monocytes # 718 200 - 950 cells/uL [facility] Comment:{ABSOLUTE MONOCYTES {[id number]) Eosinophils # 76 15 - 500 cells/uL [facility] Comment:{ABSOLUTE EOSINOPHIL S {[id number]) Basophils # 25 0 - 200 cells/uL [facility] Comment:{ABSOLUTE BASOPHILS {[id number]) Neutrophils % 71.0 % [facility] Comment:{NEUTROPHILS {[id number]) Lymphocytes % 22.5 % [facility] Comment:{LYMPHOCYTES {[id number]) Monocytes % 5.7 % [facility] Comment:{MONOCYTES {[id number]) Eosinophils % 0.6 % [facility] Comment:{EOSINOPHILS {[id number]) Basophils % 0.2 % [facility] Comment:{BASOPHILS {[id number]) 03/12/2014 3:22 PM EST 03/13/2014 12:21 AM EST Narrative [facility] - 03/13/2014 1:54 AM EST Report Comments: PLEASE DO TSH PREVIOUSLY BOOKED Resulting Agency Comment [id number] us Stormy Canas MD LAB SAME DAY RESULT Final Resul t [facility] [address] [place] [address] * PROLACTIN (03/12/2014 3:22 PM EST) Prolactin 6.7 ng/mL [facility] Comment: {PROLACTIN {[id number]) ?Reference Range Females ?Non- ?3.0-30.0 ? 10.0-209.0 ?Postmenopausal ?2.0-20.0 03/12/2014 3:22 PM EST 03/13/2014 12:21 AM EST Narrative [facility] - 03/13/2014 5:06 AM EST Report Comments: PLEASE DO TSH PREVIOUSLY BOOKED Resulting Agency Comment [id number] us Stormy Canas MD LAB SAME DAY RESULT Final Resul t [facility] [address] [place] [address] documented in this encounter Visit Diagnoses Diagnosis Hyperprolactinemia (HHS) Other and unspecified anterior pituitary hyperfunction Hypomenorrhea Scanty or infrequent menstruation Loss of hair Alopecia, unspecified Muscle pain Mylagia and myositis, unspecified Loss of appetite Anorexia Vomiting Vomiting alone documented in this encounter Care Teams Plastic Technician Relationship Specialty Start Date End Date Erika Lopez MD PCP - General 04/22/13 03/12/14 Bart Cortez MD PCP - General Internal Medicine 03/13/14 07/19/14 Yobani Arredondo MD PCP - General Family Medicine 07/20/14 documented as of this encounter
--- OUTSIDE RECORDS SUMMARY | 2024-05-31 18:49 | XMS_ITS | Clinical Summary ---
Author Organization [employer] [facility] ity Address [address] [place] [address] Care Team Providers Care Honey Extractor Name Role Phone Unavailable Primary Care Provider [...]
--- OUTSIDE RECORDS SUMMARY | 2024-05-31 18:49 | XMS_ITS | Encounter Summary ---
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 * THYROID STIMULATING HORMONE (TSH) WITH FREE T4 REFLEX, SERUM (03/12/2014 3:22 PM EST) TSH 0.97 mIU/L [facility] Comment: {TSH W/REFLEX TO FT4 {[id number]) ?Reference Range ?> or = 20 Years ??0.40-4.50 ? Ranges ?First trimester ?0.26-2.66 ?Second trimester ?? 0.55-2.73 ?Third trimester ?0.43-2.91 03/12/2014 3:22 PM EST 03/13/2014 12:22 AM EST Narrative Resulting Agency Comment [id number] us Erika Lopez MD LABORATORY Final Resu lt Performing Organization Address City/State/[facility] Co de Phone Number [facility] [address] [place] [address] documented in this encounter Visit Diagnoses Diagnosis Hypothyroidism Unspecified hypothyroidism documented in this encounter Care Teams Landscape Laborer Relationship Specialty Start Date End Date Erika Lopez MD PCP - General 04/22/13 03/12/14 Bart Cortez MD PCP - General Internal Medicine 03/13/14 07/19/14 Yobani Arredondo MD PCP - General Family Medicine 07/20/14 documented as of this encounter
--- OUTSIDE RECORDS SUMMARY | 2024-05-31 18:49 | XMS_ITS | Encounter Summary ---
Author Organization [facility] Address [address] [place] [address] Care Team Providers Care Professor Of Literacy Name Role Phone Erika Lopez MD Primary Care Provider Lubna Bart Lopez MD Primary Care Provider + [phone] Yobani Arredondo MD Primary Care Provider [phone] Encounter Details Date Type Department Care Team (Late st Contact Info) Description 06/30/2013 Orders Only [facility] [address] [place] [address] Dawood Marino MD [address] [place] [id number] Social History Tobacco Use Types Packs/Day Years [...] Specimen source [facility] Comment:{SOURCE: {[id number]) Microscopic observation NO CLUE CELLS SEEN [facility] Comment: {RESULT: {[id number]) NO FUNGAL ELEMENTS SEEN. NO TRICHOMONAS VAGINALIS SEEN. 06/30/2013 7:07 PM EDT 06/30/2013 7:12 PM EDT Narrative Resulting Agency Comment [id number] us Dawood Marino MD LAB SAME DAY RESULT Final Result Performing Organization Address [facility] Co de Phone Number [facility] [address] [place] [address] * BV/VAGINITIS PANELDNA PROBE (06/30/2013 7:07 PM EDT) Trichomonas vaginalis rRNA (Genital) NOT DETECTED NOT DETECTED [facility] Comment:{TRICHOMONAS: {[id number]) Gardnerella vaginalis rRNA (Genital) NOT DETECTED NOT DETECTED [facility] Comment:{GARDNERELLA: {[id number]) Christelle sp rRNA (Vag) NOT DETECTED NOT DETECTED [facility] Comment:{CRHISTELLE: {[id number]) 06/30/2013 7:07 PM EDT 06/30/2013 7:12 PM EDT Narrative Resulting Agency Comment [id number] us Dawood Marino MD LABORATORY Final Result Performing Organization Address [facility] Co de Phone Number [facility] [address] [place] [address] * CHLAMYDIA TRACHOMATIS/N. GONORRHOEAE (GC) RNA, TMA (APTIMA GENITAL SWAB) (06/30/2013 7:07 PM EDT) Chlamydia trachomatis rRNA NOT DETECTED NOT DETECTED [facility] Comment:{CHLAMYDIA TRACHOMAT IS RNA, TMA {[id number]) Neisseria Gonorrhoeae rRNA NOT DETECTED NOT DETECTED [facility] Comment:{NEISSERIA GONORRHOE AE RNA, TMA {[id number]) COMMENT SEE NOTE [facility] Comment: {COMMENT {[id number]) This test was performed using the APTIMA COMBO2 Assay ([employer] The analytical performance characteristics of this assay, when used to test Sure[employer] specimens have been determined by [employer]. 06/30/2013 7:07 PM EDT 06/30/2013 7:12 PM EDT Narrative Resulting Agency Comment [id number] us Dawood Marino MD LABORATORY Final Result Performing Organization Address City/[facility]/ZIP Co de Phone Number [facility] [address] [place] [address] * HCG, TOTAL, QL (06/30/2013 5:57 PM EDT) Pathologist [facility] HCG, Qualitative (Screen) NEGATIVE [facility] Comment: {HCG, TOTAL, QL {[id number]) Reference Range Non-: Negative : ? Positive 06/30/2013 5:57 PM EDT 06/30/2013 6:02 PM EDT Narrative Resulting Agency Comment [id number] us Dawood Marino MD LAB SAME DAY RESULT Final Result [facility] [address] [place] [address] * CULTURE, URINE, ROUTINE (06/30/2013 5:28 PM EDT) Bacteria culture (Urine) SEE NOTE [facility] Comment: {CULTURE, URINE, ROUTINE {[id number]) ??CULTURE, URINE, ROUTINE ??MICRO NUMBER: ?[id number] ??TEST STATUS: ? FINAL ??SPECIMEN SOURCE: ?? URINE ??SPECIMEN QUALITY: ??ADEQUATE ??RESULT: ?Multiple organisms present, each less than 10,000 ? CFU/mL. These organisms, commonly found on ? external and internal genitalia, are considered ? to be colonizers. No further testing performed. 06/30/2013 5:28 PM EDT 06/30/2013 5:49 PM EDT Narrative Resulting Agency Comment [id number] us Tyler Brown MD LABORATORY Final Result [facility] [address] [place] [address] * (ABNORMAL) URINALYSIS, MICROSCOPIC (06/30/2013 5:28 PM EDT) WBC (Urine) 0-5 < OR = 5 /HPF [facility] Comment:{WBC {[id number]) RBC (Urine Sed) NONE SEEN < OR = 3 /HPF [facility] Comment:{RBC {[id number]) Epithelial cells.squamous (Urine sed) 0-5 < OR = 5 /HPF [facility] Comment:{SQUAMOUS EPITHELIAL CELLS {[id number]) Transitional cells (Urine sed) NONE SEEN < OR = 5 /HPF [facility] Comment:{TRANSITIONAL EPITHE LIAL CELLS {[id number]) Epithelial cells.renal (Urine sed) NONE SEEN < OR = 3 /HPF [facility] Comment:{RENAL EPITHELIAL CE LLS {[id number]) Bacteria (Urine) MANY(A) NONE SEEN /HPF [facility] Comment:{BACTERIA {[id number]) Yeast (Urine sed) NONE SEEN NONE SEEN /HPF [facility] Comment:{YEAST {[id number]) Service comment 01 MANY MUCOUS THREADS [facility] Comment:{COMMENTS {[id number]) Service comment 01 See Below [facility] Comment: {NOTE {[id number]) This urine was analyzed for the presence of WBC, RBC, bacteria, casts, and other formed elements. Only those elements seen were reported. 06/30/2013 5:28 PM EDT 06/30/2013 5:49 PM EDT Narrative Resulting Agency Comment [id number] us Tyler Brown MD LAB SAME DAY RESULT Final Re sult Performing Organization Address [facility] Co de Phone Number [facility] [address] [place] [address] * INFLUENZA A AND B ANTIGENDETECTION, EIA (06/30/2013 5:15 PM EDT) Specimen source NASAL [facility] Comment:{SOURCE: {[id number]) Influenza Virus A Ag NOT DETECTED NOT DETECTED [facility] Comment:{INFLUENZA A ANTIGEN {[id number]) Influenza virus B Ag (Naspopharynx ) NOT DETECTED NOT DETECTED [facility] Comment:{INFLUENZA B ANTIGEN {[id number]) 06/30/2013 5:15 PM EDT 06/30/2013 5:28 PM EDT Narrative Resulting Agency Comment [id number] us Dawood Marino MD LAB SAME DAY RESULT Final Result Performing Organization Address [facility] Co de Phone Number [facility] [address] [place] [address] * BORRELIA BURGDORFERI AB (LYME), EIA WITH REFLEX IGG, IGM WB (06/30/2013 5:15 PM EDT) Borrelia burgdorferi Ab < OR = 0.90 index [facility] Comment: {LYME AB SCREEN {[id number]) ? Index ? Interpretation ? ----- ? [...] 5:28 PM EDT Narrative Resulting Agency Comment [id number] Dawood Marino MD LABORATORY Final Result Performing Organization Address City/State/[facility] Co de Phone Number [facility] [address] [place] [address] * HEPATIC FUNCTION PANEL (06/30/2013 5:15 PM EDT) Protein Total (Serum) 6.4 6.1 - 8.1 g/dL [facility] Comment:{PROTEIN, TOTAL {[id number]) Albumin 4.0 3.6 - 5.1 g/dL [facility] Comment:{ALBUMIN {[id number]) Globulin 2.4 1.9 - 3.7 g/dL (calc) [facility] Comment:{GLOBULIN {[id number]) Albumin/Globulin 1.7 1.0 - 2.5 (calc) [facility] Comment:{ALBUMIN/GLOBULIN RA VINAYAK {[id number]) Bilirubin Total 0.4 0.2 - 1.2 mg/dL [facility] Comment:{BILIRUBIN, TOTAL {[id number]) Bilirubin Direct 0.1 < OR = 0.2 mg/dL [facility] Comment:{BILIRUBIN, DIRECT { [id number]) Bilirubin Indirect 0.3 0.2 - 1.2 mg/dL (calc) [facility] Comment:{BILIRUBIN, INDIRECT {[id number]) Alkaline phosphatase 62 33 - 115 U/L [facility] Comment:{ALKALINE PHOSPHATAS E {[id number]) AST (SGOT) 13 10 - 30 U/L [facility] Comment:{AST {[id number]) ALT (SGPT) 8 6 - 29 U/L [facility] Comment:{ALT {[id number]) 06/30/2013 5:15 PM EDT 06/30/2013 5:28 PM EDT Narrative Resulting Agency Comment [id number] Dawood Marino MD LABORATORY Final Result [facility] [address] [place] [address] * (ABNORMAL) CBC INCLUDES DIFFERENTIAL AND PLATELET COUNT (06/30/2013 5:15 PM EDT) WBC 10.6 3.8 - 10.8 Thousand/ uL [facility] Comment:{WHITE BLOOD CELL CO UNT {[id number]) RBC 4.73 3.80 - 5.10 Million/u L [facility] Comment:{RED BLOOD CELL COUN T {[id number]) Hemoglobin 13.2 11.7 - 15.5 g/dL [facility] Comment:{HEMOGLOBIN {[id number]) Hematocrit 41.7 35.0 - 45.0 % [facility] Comment:{HEMATOCRIT {[id number]) MCV 88.2 80.0 - 100.0 fL [facility] Comment:{MCV {[id number]) MCH 27.9 27.0 - 33.0 pg [facility] Comment:{MCH {[id number]) MCHC 31.6(L) 32.0 - 36.0 g/dL [facility] Comment:{MCHC {[id number]) RDW 14.1 11.0 - 15.0 % [facility] Comment:{RDW {[id number]) PLT 362 140 - 400 Thousand/ uL [facility] Comment:{PLATELET COUNT {[id number]) MPV 7.7 7.5 - 11.5 fL [facility] Comment:{MPV {[id number]) Neutrophils # 6604 1500 - 7800 cells/uL [facility] Comment:{ABSOLUTE NEUTROPHIL S {[id number]) Lymphocytes # 2968 850 - 3900 cells/uL [facility] Comment:{ABSOLUTE LYMPHOCYTE S {[id number]) Monocytes # 869 200 - 950 cells/uL [facility] Comment:{ABSOLUTE MONOCYTES {[id number]) Eosinophils # 106 15 - 500 cells/uL [facility] Comment:{ABSOLUTE EOSINOPHIL S {[id number]) Basophils # 53 0 - 200 cells/uL [facility] Comment:{ABSOLUTE BASOPHILS {[id number]) Neutrophils % 62.3 % [facility] Comment:{NEUTROPHILS {[id number]) Lymphocytes % 28.0 % [facility] Comment:{LYMPHOCYTES {[id number]) Monocytes % 8.2 % [facility] Comment:{MONOCYTES {[id number]) Eosinophils % 1.0 % [facility] Comment:{EOSINOPHILS {[id number]) Basophils % 0.5 % [facility] Comment:{BASOPHILS {[id number]) 06/30/2013 5:15 PM EDT 06/30/2013 5:28 PM EDT Narrative Resulting Agency Comment [id number] us Dawood Marino MD LAB SAME DAY RESULT Final Result [facility] [address] [place] [address] * BASIC METABOLIC PANEL WITH (GFR) (06/30/2013 5:15 PM EDT) Glucose 82 65 - 99 mg/dL [facility] Comment: {GLUCOSE {[id number]) ? Fasting reference interval Urea Nitrogen Blood (BUN) 10 7 - 25 mg/dL [facility] Comment:{UREA NITROGEN (BUN) {[id number]) Creatinine 0.71 0.50 - 1.10 mg/dL [facility] Comment:{CREATININE {[id number]) GFR 119 > OR = 60 mL/min/1. 73m2 [facility] Comment:{eGFR NON-AFR. AMERI CAN {[id number]) GFR () 138 > OR = 60 mL/min/1. 73m2 [facility] Comment:{eGFR AMERIC AN {[id number]) BUN/Creatinine Ratio NOT APPLICABLE 6 - (calc) [facility] Comment:{BUN/CREATININE RATI O {[id number]) Sodium 139 135 - 146 mmol/L [facility] Comment:{SODIUM {[id number]) Potassium 3.9 3.5 - 5.3 mmol/L [facility] Comment:{POTASSIUM {[id number]) Chloride 106 98 - 110 mmol/L [facility] Comment:{CHLORIDE {[id number]) Carbon dioxide 27 19 - 30 mmol/L [facility] Comment:{CARBON DIOXIDE {[id number]) Calcium 9.2 8.6 - 10.2 mg/dL [facility] Comment:{CALCIUM {[id number]) 06/30/2013 5:15 PM EDT 06/30/2013 5:28 [...] needs for GFR calculation. Resulting Agency Comment [id number] us Dawood Marino MD LABORATORY Final Result Performing Organization Address City/State/[facility] Co de Phone Number [facility] [address] [place] [address] documented in this encounter Visit Diagnoses Diagnosis Fever Fever, unspecified Left flank pain Abdominal pain, unspecified site Chronic abdominal pain Abdominal pain, unspecified site documented in this encounter Care Teams Professor Of Literacy Relationship Specialty Start Date End Date Erika Lopez MD PCP - General 04/22/13 03/12/14 Bart Cortez MD PCP - General Internal Medicine 03/13/14 07/19/14 Yobani Arredondo MD PCP - General Family Medicine 07/20/14 documented as of this encounter
[2024-06-01 09:18] LABS: Bacterial Vaginosis PCR NEGATIVE (Negative); Candida Group PCR DETECTED (Not Detect); Candida glab krusei PCR NOT DETECTED (Not Detect); Trichomonas vaginalis PCR NOT DETECTED (Not Detect)
== END 2024-05-31 13:38 | disposition home or self-care (01) ==
LOC: HO.LNP 13:37
PROVIDERS: PCP Physician Assistant; Visit Provider Physician Assistant
DX: Z00.01 Encounter for general adult medical examination with abnormal findings (principal); N76.1 Subacute and chronic vaginitis; F33.1 Major depressive disorder, recurrent, moderate; E03.9 Hypothyroidism, unspecified; I10 Essential (primary) hypertension; E66.811 Obesity, class 1; Z68.34 Body mass index [BMI] 34.0-34.9, adult; Z71.3 Dietary counseling and surveillance
CPT/HCPCS: 81515; 99395

== ENCOUNTER 2024-05-31 13:37 | Outpatient (AMB) | payer OTHER, SELFPAY ==
--- NOTE | 2024-05-31 13:39 | A.OFFPC_ITS ---
Vital Signs 05/31/24 13:40 Height 5 ft 1 in Weight 180 lb BMI 34.0 BP 142/98 H Blood Pressure Location Lt brachial Position Sitting Intake Visit Reasons: Annual Exam Intake Note: Patient here for a physical exam Web Marketing Intern Required: No Accompanied by: Family/Other Allergies lamotrigine [From Lamictal] Adverse Reaction (Intermediate, Verified 05/31/24 13:48) Rash CLindamycin Allergy (Unknown, Uncoded 05/31/24 13:48) rash latex Allergy (Unknown, Uncoded 05/31/24 13:48) Swelling Medication List - Last Reconciled 05/31/24 by Cuco Roth PA-C acetaminophen 650 mg PO Q4H PRN albuterol sulfate 90 mcg/actuation (Ventolin HFA) 1 inh inhalation QID 30 days aripiprazole 5 mg PO DAILY epinephrine (EpiPen 2-Shahzad) 0.3 mg (0.3 mL) IM ONCE PRN 30 days hydroxyzine HCl 10 mg PO ONCE PRN 30 days ibuprofen 0 mg PO oxcarbazepine (Trileptal) 600 mg PO ONCE Tobacco use date assessed: 05/31/24 Dental Screening Dental Screen Date: 05/31/24 Did you have a dental visit in the last 12 months?: Yes Did you have a dental problem in the last 6 months where you did not have access to dental care?: No Was dental information given to patient?: Patient has dentist HPI Annual Exam HPI Details Patient is a 33-year-old female here today for routine annual physical. Patient has a past medical history significant for asthma, anxiety and hypothyroidism. Currently in school at [employer] taking classes. Concern--> concerns of potential vaginosis and persistent weight issues. She reports recent changes in vaginal discharge, noticeable changes in smell, and consistency changes which concern her for possible bacterial vaginosis. She has noticed no burning with urination but mentions increased frequency and urgency. .. Bipolar disorder/ Generalized anxiety disorder: Continues to follow psychiatrist. Continues on Trileptal and Abilify and reports her mental health has been fairly stable. She still has some waxing and waning of her moods and is considering returning back to lamotrigine for mood stabilization.] .. Chronic right hip pain: Has gotten better since starting Trileptal. She reports she has been able to walk longer distances without much pain. She is now ambulating without a cane. She has had full workup with x-ray and MRI of right hip though no significant findings have been found. .. PCOS : Was previusly on metformin 2000 mg daily though was discontinued due to possibly having hypoglycemic events. Does have PCOS and has constant low-grade abdominal pain. .. Asthma: Has been fairly well controlled with p.r.n. use of her albuterol inhaler. .. Hypothyroidism: She has lost follow-up with endocrinology. Was previously on levothyroxine though has stopped this medication. Of note has noted significant weight gain since last office visit. Will recheck her TSH in if elevated will return back to using levothyroxine. Vaccines: Declines flu and COVID, needs Tdap though unclear if she has gotten this in the last 10 years. 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- Laboratory Tests 10/30/22 12:54 RBC 4.63 Creatinine 0.80 TSH 1.44 PFSH Medical History Weight gain Migraines PCOS (polycystic ovarian syndrome) Asthma Acquired hypothyroidism Surgical History Hx of tooth extraction Hx of wisdom tooth extraction History of surgery Family History Father Unknown family medical history Mother Asthma Maternal Uncle Hx of thyroidectomy Family/Other Mental health disorder Social History (Updated 05/31/24 @ 13:53 by Cuco Roth PA-C) Household Members: Family Housing: House Alcohol intake: current Alcohol intake frequency: former alcohol drinker Alcohol type: hard liquor Patient Tobacco Use Status: Never used Tobacco e-Cigarette/Vaping Use: Never Used Second Hand Smoke Exposure: Yes Substance Use Type: Marijuana service: No Current occupational status: student Current occupation: [employer] Current occupational exposures/hazards: No Cognitive needs: No Hearing needs: No Vision needs: No Questionnaire PHQ-9 Over the last 2 weeks, how often have you been bothered by any of the following problems? 1. Little interest or pleasure in doing things: several days 4. Feeling tired or having little energy: more than half the days 5. Poor appetite or overeating: nearly every day 6. Feeling bad about yourself - or that you are a failure or have let yourself or your family down: several days 7. Trouble concentrating on things, such as reading the newspaper or watching television: more than half the days 8. Moving or speaking so slowly that other people could have noticed. Or the opposite - being so fidgety or restless that you have been moving around a lot more than usual: more than half the days 9. Thoughts that you would be better off or of hurting yourself in some way: not at all Source: Developed by Drs. Desean Velásquez, Corinna Donaldson, Qamar Richter and colleagues, with an educational keanu from [employer]. Thrive Questionnaire Date Thrive assessed: 08/30/23 I am a: Patient What is your living situation today?: I choose not to answer this question Within the past 12 months, did the food you bought not last and you didn't have the money to get more?: I choose not to answer this question Within the past 12 months, did you worry whether your food would run out before you got money to buy more?: I choose not to answer this question Do you have trouble paying for medicines?: I choose not to answer this question Do you have trouble getting transportation to medical appointments?: I choose not to answer this question Do you have trouble paying your heating and electricity bill?: I choose not to answer this question Do you have trouble taking care of your child, family member or friend?: I choose not to answer this question Do you have trouble with day-to-day activities such as bathing, preparing meals, shopping, managing finances, etc.?: I choose not to answer this question Are you currently unemployed and looking for a job?: I choose not to answer this question Are you interested in more education?: I choose not to answer this question Please select the resources that you would like help with: None Currently or been in a relationship where the following occur: I choose not to answer THRIVE Score: 0 AUDIT C Alcohol Use Questionnaire (AUDIT-C) 1. How often do you have a drink containing alcohol?: Never Total Score: 0 BOB-7 AMB Questionnaire BOB-7 Date BOB - 7 assessed: 08/30/23 Feeling nervous, anxious, or on edge: 2 = More than half the days Not being able to stop or control worryin = More than half the days Worrying too much about different things: 1 = Several days Trouble relaxin = Several days Being so restless that it is hard to sit still: 2 = More than half the days Becoming easily annoyed or irritable: 1 = Several days Feeling afraid as if something awful might happen: 1 = Several days Total BOB-7 score (0-4 normal; 5-9 mild; 10-14 moderate; 15-21 severe): 10 Source: Developed by Drs. Desean Velásquez, Corinna Donaldson, Qamar Richter and colleagues, with an educational keanu from [employer]. Review of Systems Const Denies body aches, Denies chills, Denies excessive sweating, Denies fatigue, Denies fever(s) and Denies headache(s) Eyes Denies blurry vision ENT Denies dysphagia, Denies vertigo, Denies dizziness, Denies headache(s), Denies hearing loss and Denies tinnitus Card Denies chest pain, Denies chest pain with activity, Denies syncope, Denies irregular heart rhythm and Denies dyspnea Resp Denies chest congestion, Denies cough, Denies hemoptysis, Denies dyspnea and Denies wheezing GI Denies abdominal pain, Denies melena, Denies hematochezia, Denies coffee ground emesis, Denies dysphagia, Denies diarrhea, Denies nausea and Denies vomiting Denies urinary frequency, Denies dysuria, Denies urinary hesitancy and Denies urinary urgency Musc Denies arthralgias, Denies limited range of motion, Denies muscle cramps and Denies muscle weakness Skin/Breast Denies rash and Denies skin ulcer Neuro Denies Abnormal speech present, Denies confusion, Denies vertigo, Denies dizziness, Denies syncope, Denies headache(s), Denies memory loss and Denies seizure-like activity Psych Denies anxiety, Denies confusion, Denies depression, Denies memory loss, Denies panic attacks and Denies paranoia Endo Denies excessive sweating, Denies fatigue, Denies flushing, Denies polydipsia and Denies polyuria Aller/Immun Denies wheezing Physical exam (Primary Care) Vital Signs: Last Vital Signs BP 142/98 H 05/31/24 13:40 BMI result Body Mass Index 34.0 BMI Assessment/Plan discussion: High BMI High, discussed plan: lifestyle, weight reduction, dietary and physical activity Tobacco/Smoking Status: Tobacco use Status Tobacco use date assessed 05/31/24 05/31/24 13:46 Patient Tobacco Use Status Never used Tobacco 05/31/24 13:53 e-Cigarette/Vaping Use Never Used 05/31/24 13:53 Thrive Assessment: Date of Thrive Assessment Date Thrive assessed 08/30/23 05/31/24 13:46 Currently or been in a relationship where the following occur: I choose not to answer Const Other: Obese General: cooperative, comfortable, no acute distress, alert and awake; No confusion Orientation/consciousness: oriented to person, oriented to place, patient oriented x3 and No confusion HENMT Head: Yes normocephalic Ears: external ears normal and TM's normal bilaterally Face and sinus: No sinus tenderness Mouth: Normal oral and palatal mucosa present and tongue normal Teeth and gingiva: dentition normal and gingiva normal Throat: Yes posterior oropharynx normal, Yes tonsils normal and Yes uvula midline Eyes Conjunctivae: conjunctivae normal Sclerae: sclerae normal Pupils: Equal, round and reactive pupils present EOM: EOMs intact bilaterally Direct Ophthalmoscopy: No no photophobia Neck Neck: Yes no lymphadenopathy, No tender and Yes no JVD Thyroid: Thyroid normal Carotids: no bruits Chest Chest palpation & inspection: no tenderness Resp Effort & Inspection: normal respiratory effort, no audible wheezes, not labored and no stridor Auscultation: no crackles, no rales, no rhonchi and no wheezes Cardio Jugular venous distension: no JVD Rate: regular rate, not bradycardic and not tachycardic Rhythm: regular rhythm Bruits: no carotid bruits Peripheral pulses: Peripheral pulses 2+ throughout GI Inspection: Yes normal to inspection, No abdominal wall ecchymosis and No visible herniation Palpation (GI): Soft to palpation, nontender, no guarding, not rigid and No hepatosplenomegaly present Auscultation: normoactive bowel sounds General: Yes no CVA tenderness Back/Spine/Pelvis Back: no CVA tenderness and No back tenderness Cervical Spine: cervical ROM normal Thoracic/Lumbar Spine: thoracic and lumbar spine normal to inspection, straight leg raise negative bilaterally, No thoraco-lumbar ROM limited and No lumbar spinal tenderness Skin Lesions: no lesions Rashes: no rashes Wounds: no wounds Neuro General: oriented to person, oriented to place, patient oriented x3, CN's II-XI intact bilaterally and No confusion Cranial nerves: Yes Equal, round and reactive pupils present and Yes Normal accommodation reflex present Cognition (Neuro): normal cognition Speech: No Abnormal speech present Gait exam (Neuro): Normal gait present Motor exam (neuro): 5/5 motor strength present throughout Extrem Other: LIMITED RANGE OF MOTION OF THE RIGHT HIP DUE TO PAIN AND STIFFNESS LEFT HIP NORMAL Right upper extremity: full ROM; no cyanosis Left upper extremity: full ROM; no cyanosis Right lower extremity: no edema Left lower extremity: no edema Psych Appearance: grossly normal Mental Status: mental status grossly normal Affect: normal affect Attitude: cooperative Thought process: Normal thought process present Coding Level of Care Code Est Pt Prev Care 18-39y([id number]) Diagnoses Annual physical exam Z00.00 MDD (major depressive disorder), recurrent episode, moderate F33.1 Acquired hypothyroidism E03.9 Subacute vaginitis N76.1 Chronicity: subacute Primary hypertension I10 Hypertension type: primary hypertension Class 1 obesity E66.811 Bipolar affective disorder, currently depressed, moderate F31.32 Active/Remission status: currently active Current bipolar episode type: depressed Current episode severity: moderate Assessment & Plan Assessment & Plan (1) Annual physical exam: Code(s): Z00.00 - Encounter for general adult medical examination without abnormal findings Category: Medical Plan: as per HPI (2) MDD (major depressive disorder), recurrent episode, moderate: Code(s): F33.1 - Major depressive disorder, recurrent, moderate Category: Medical Plan: Patient continues to follow psychiatry whom manage her mental health medication. She feels he is fairly stable from a mental health point of view. (3) Acquired hypothyroidism: Code(s): E03.9 - Hypothyroidism, unspecified Category: Medical Plan: Has not been taking levothyroxine and quite some time. Has noted significant weight gain since last office visit. Will recheck TSH to ensure stable. (4) Vaginitis: Code(s): N76.0 - Acute vaginitis Category: Medical Qualifiers: Chronicity: subacute Qualified Code(s): N76.1 - Subacute and chronic vaginitis Plan: Awaiting vaginal swab results to confirm diagnosis, with a plan for treatment with metronidazole if indicated. (5) HTN (hypertension): Code(s): I10 - Essential (primary) hypertension Category: Medical Qualifiers: Hypertension type: primary hypertension Qualified Code(s): I10 - Essential (primary) hypertension Plan: Patient's blood pressure elevated today in office, we attributes this to recent weight gain and high salt intake.. She is currently not on blood pressure medication and will like to stay off of medication for now. Will start monitoring blood pressure with a home blood pressure monitor. Goal blood pressures to be below 140/90 (6) Class 1 obesity: Code(s): E66.811 - Obesity, class 1 Category: Medical Plan: Patient does understand her BMI is over 30, has gained significant amount of weight over the last year and attributes this to possibly psychiatric medication. Will check her thyroid as she has had hypothyroidism in the past. (7) Bipolar disorder: Code(s): F31.9 - Bipolar disorder, unspecified Category: Medical Qualifiers: Active/Remission status: currently active Current bipolar episode type: depressed Current episode severity: moderate Qualified Code(s): F31.32 - Bipolar disorder, current episode depressed, moderate Plan: Patient followed by a psychiatrist and is managing her mental health medication. She is considering returning back to lamotrigine for her mood stabilization. She does report hydroxyzine is very effective for her anxiety Orders: Orders Vitamin D 25-OH Total 05/31/24 R79.89 - Other specified abnormal findings of blood chemistry Complete Blood Count no Diff 05/31/24 E03.9 - Hypothyroidism, unspecified Comprehensive [place]. Panel Fast 05/31/24 E03.9 - Hypothyroidism, unspecified Bacterial Vaginosis Panel 05/31/24 N76.1 - Subacute and chronic vaginitis TSH reflex Free T4 Today E03.9 - Hypothyroidism, unspecified Medications: New hydroxyzine HCl 25 mg PO TID 30 days 90 tabs 1RF F41.1 - Generalized anxiety disorder blood pressure monitor As directed 1 ea 0RF I10 - Essential (primary) hypertension Changed From aripiprazole 5 mg PO DAILY 7 days 7 tabs 0RF F33.1 - Major depressive disorder, recurrent, moderate To aripiprazole takes 1 1/2 5 mg PO DAILY F33.1 - Major depressive disorder, recurrent, moderate Discontinued hydroxyzine HCl Discontinued Reason: Doctor's Order 10 mg PO ONCE 30 days PRN 30 tabs 3RF panic attack F41.1 - Generalized anxiety disorder Patient Instructions: Goal: Blood pressure to remain below 140/90 Barriers: Adherence to physical activity and healthy eating habits
[2024-05-31 13:40] VITALS: BP 142/98; BMI 34.0
--- OUTSIDE RECORDS SUMMARY | 2024-05-31 16:03 | XMS_ITS | Encounter Summary ---
Author Organization [facility] Address [address] [place] [address] Care Team Providers Care Chainsaw Mechanic Name Role Phone Erika Lopez MD Primary Care Provider Lubna Bart Lopez MD Primary Care Provider [phone] Yobani Arredondo MD Primary Care Provider [phone] Encounter Details Date Type Department Care Team (Late st Contact Info) Description 08/12/2013 Orders Only [facility] Internal Medicine [address] [place] [id number] Erika Lopez MD Social History Tobacco Use Types Packs/Day Years Used Date Smoking Tobacco: Never Alcohol Use Standard Drinks/Week Comments Not Asked 0 (1 standard drink = 0.6 oz pur e alcohol) Comments No Sex and Gender Information Value Date Recorded Sex Assigned at Not on file Legal Sex Female 11:46 AM EDT Gender Identity Not on file Sexual Orientation Not on file documented as of this encounter Progress Notes * Erika Lopez MD - 08/14/2013 7:13 PM EDTQuick Note: Has ov 08/15/13 documented in this encounter Plan of Treatment Not on file documented as of this encounter Procedures * Due to [place] state law, this organization might not be sharing negative HIV tests. Procedure Name Priority Date/Time Associated Diagnosis Comments CBC INCLUDES DIFFERENTIAL AND PLATELET COUNT Routine 08/12/2013 4:17 PM EDT Leukocytosis documented in this encounter Results * Due to [place] state law, this organization might not be sharing negative HIV tests. * (ABNORMAL) CBC INCLUDES DIFFERENTIAL AND PLATELET COUNT (08/12/2013 4:17 PM EDT) WBC 12.9(H) 3.8 - 10.8 Thousand/ uL [facility] Comment:{WHITE BLOOD CELL CO UNT {[id number]) RBC 4.71 3.80 - 5.10 Million/u L [facility] Comment:{RED BLOOD CELL COUN T {[id number]) Hemoglobin 13.8 11.7 - 15.5 g/dL [facility] Comment:{HEMOGLOBIN {[id number]) Hematocrit 42.6 35.0 - 45.0 % [facility] Comment:{HEMATOCRIT {[id number]) MCV 90.4 80.0 - 100.0 fL [facility] Comment:{MCV {[id number]) MCH 29.4 27.0 - 33.0 pg [facility] Comment:{MCH {[id number]) MCHC 32.5 32.0 - 36.0 g/dL [facility] Comment:{MCHC {[id number]) RDW 14.3 11.0 - 15.0 % [facility] Comment:{RDW {[id number]) PLT 307 140 - 400 Thousand/ uL [facility] Comment:{PLATELET COUNT {[id number]) MPV 8.8 7.5 - 11.5 fL [facility] Comment:{MPV {[id number]) Neutrophils # 9056(H) 1500 - 7800 cells/uL [facility] Comment:{ABSOLUTE NEUTROPHIL S {[id number]) Lymphocytes # 2967 850 - 3900 cells/uL [facility] Comment:{ABSOLUTE LYMPHOCYTE S {[id number]) Monocytes # 774 200 - 950 cells/uL [facility] Comment:{ABSOLUTE MONOCYTES {[id number]) Eosinophils # 90 15 - 500 cells/uL [facility] Comment:{ABSOLUTE EOSINOPHIL S {[id number]) Basophils # 13 0 - 200 cells/uL [facility] Comment:{ABSOLUTE BASOPHILS {[id number]) Neutrophils % 70.2 % [facility] Comment:{NEUTROPHILS {[id number]) Lymphocytes % 23.0 % [facility] Comment:{LYMPHOCYTES {[id number]) Monocytes % 6.0 % [facility] Comment:{MONOCYTES {[id number]) Eosinophils % 0.7 % [facility] Comment:{EOSINOPHILS {[id number]) Basophils % 0.1 % [facility] Comment:{BASOPHILS {[id number]) 08/12/2013 4:17 PM EDT 08/13/2013 12:45 AM EDT Narrative Resulting Agency Comment [id number] Erika Lopez MD LAB SAME DAY RESULT Final Result Performing Organization Address City/State/[facility] Co de Phone Number [facility] [address] [place] [address] documented in this encounter Visit Diagnoses Diagnosis Leukocytosis Leukocytosis, unspecified documented in this encounter Care Teams Chainsaw Mechanic Relationship Specialty Start Date End Date Erika Lopez MD PCP - General 04/22/13 03/12/14 Bart Cortez MD PCP - General Internal Medicine 03/13/14 07/19/14 Yobani Arredondo MD PCP - General Family Medicine 07/20/14 documented as of this encounter
--- OUTSIDE RECORDS SUMMARY | 2024-05-31 16:03 | XMS_ITS | Encounter Summary ---
Author Organization [facility] Address [address] [place] [address] Care Team Providers Care Customer Care Voice Consultant Name Role Phone Erika Lopez MD Primary Care Provider Lubna Bart Lopez MD Primary Care Provider + [phone] Yobani Arredondo MD Primary Care Provider [phone] Encounter Details Date Type Department Care Team (Late st Contact Info) Description 08/04/2013 Orders Only [facility] [address] [place] [address] Margarette Bailey PA [address] [place] [id number] Social History Tobacco Use Types Packs/Day Years [...] as of this encounter Progress Notes * eRnetta Lerner - 08/09/2013 10:02 AM EDTQuick Note: See tm 08/09/2013 * Erika Lopez MD - 08/06/2013 6:25 PM EDTQuick Note: Call pt seen in for viral gastroenteritis Advise her white cell count is up Advise book rpt cbc x 1 eeek dx leukocytosis * Lynn Seo - 08/06/2013 1:37 PM EDTQuick Note: noted * Lynn Seo - 08/06/2013 8:28 AM EDTQuick Note: noted * Patel Rodriguez MD - 08/05/2013 8:44 AM EDTQuick Note: Normal BMP * Osmel Lozano MD - 08/04/2013 5:34 PM EDTQuick Note: ua noted, not on abx documented in this encounter Plan of Treatment Not on file documented as of this encounter Procedures * Due to [place] state law, this organization might not be sharing negative HIV tests. Procedure Name Priority Date/Time Associated Diagnosis Comments CBC INCLUDES DIFFERENTIAL AND PLATELET COUNT STAT (All results called to provider) 08/04/2013 5:43 PM EDT Viral gastroenteritis BASIC METABOLIC PANEL WITH (GFR) STAT (All results called to provider) 08/04/2013 5:43 PM EDT Viral gastroenteritis CULTURE, URINE, ROUTINE Routine 08/04/2013 4:49 PM EDT Urinary tract infection STREPTOCOCCUS, GROUP A CULTURE Routine 08/04/2013 4:49 PM EDT Urinary tract infection Sore throat URINALYSIS, MICROSCOPIC STAT (All results called to provider) 08/04/2013 4:49 PM EDT Urinary tract infection documented in this encounter Results * Due to [place] state law, this organization might not be sharing negative HIV tests. * (ABNORMAL) CBC INCLUDES DIFFERENTIAL AND PLATELET COUNT (08/04/2013 5:43 PM EDT) WBC 15.9(H) 3.8 - 10.8 Thousand/ uL [facility] Comment:{WHITE BLOOD CELL CO UNT {[id number]) RBC 5.01 3.80 - 5.10 Million/u L [facility] Comment:{RED BLOOD CELL COUN T {[id number]) Hemoglobin 14.2 11.7 - 15.5 g/dL [facility] Comment:{HEMOGLOBIN {[id number]) Hematocrit 44.4 35.0 - 45.0 % [facility] Comment:{HEMATOCRIT {[id number]) MCV 88.7 80.0 - 100.0 fL [facility] Comment:{MCV {[id number]) MCH 28.4 27.0 - 33.0 pg [facility] Comment:{MCH {[id number]) MCHC 32.0 32.0 - 36.0 g/dL [facility] Comment:{MCHC {[id number]) RDW 13.8 11.0 - 15.0 % [facility] Comment:{RDW {[id number]) PLT 354 140 - 400 Thousand/ uL [facility] Comment:{PLATELET COUNT {[id number]) MPV 7.5 7.5 - 11.5 fL [facility] Comment:{MPV {[id number]) Neutrophils # 82572(H) 1500 - 7800 cells/uL [facility] Comment:{ABSOLUTE NEUTROPHIL S {[id number]) Lymphocytes # 3530 850 - 3900 cells/uL [facility] Comment:{ABSOLUTE LYMPHOCYTE S {[id number]) Monocytes # 1034(H) 200 - 950 cells/uL [facility] Comment:{ABSOLUTE MONOCYTES {[id number]) Eosinophils # 95 15 - 500 cells/uL [facility] Comment:{ABSOLUTE EOSINOPHIL S {[id number]) Basophils # 80 0 - 200 cells/uL [facility] Comment:{ABSOLUTE BASOPHILS {[id number]) Neutrophils % 70.2 % [facility] Comment:{NEUTROPHILS {[id number]) Lymphocytes % 22.2 % [facility] Comment:{LYMPHOCYTES {[id number]) Monocytes % 6.5 % [facility] Comment:{MONOCYTES {[id number]) Eosinophils % 0.6 % [facility] Comment:{EOSINOPHILS {[id number]) Basophils % 0.5 % [facility] Comment:{BASOPHILS {[id number]) 08/04/2013 5:43 PM EDT 08/04/2013 5:47 PM EDT Narrative Resulting Agency Comment [id number] Margarette [facility] SAME DAY RESULT Final Result [facility] [address] [place] [address] * BASIC METABOLIC PANEL WITH (GFR) (08/04/2013 5:43 PM EDT) Glucose 83 65 - 99 mg/dL [facility] Comment: {GLUCOSE {[id number]) ? Fasting reference interval Urea Nitrogen Blood (BUN) 10 7 - 25 mg/dL [facility] Comment:{UREA NITROGEN (BUN) {[id number]) Creatinine 0.75 0.50 - 1.10 mg/dL [facility] Comment:{CREATININE {[id number]) GFR 112 > OR = 60 mL/min/1. 73m2 [facility] Comment:{eGFR NON-AFR. AMERI CAN {[id number]) GFR () 129 > OR = 60 mL/min/1. 73m2 [facility] Comment:{eGFR AMERIC AN {[id number]) BUN/Creatinine Ratio NOT APPLICABLE 6 (calc) [facility] Comment:{BUN/CREATININE RATI O {[id number]) Sodium 137 135 - 146 mmol/L [facility] Comment:{SODIUM {[id number]) Potassium 3.7 3.5 - 5.3 mmol/L [facility] Comment:{POTASSIUM {[id number]) Chloride 104 98 - 110 mmol/L [facility] Comment:{CHLORIDE {[id number]) Carbon dioxide 25 19 - 30 mmol/L [facility] Comment:{CARBON DIOXIDE {[id number]) Calcium 9.6 8.6 - 10.2 mg/dL [facility] Comment:{CALCIUM {[id number]) 08/04/2013 5:43 PM EDT 08/04/2013 5:47 PM EDT Narrative [facility] - 08/04/2013 6:39 PM EDT Please note that this estimated GFR does not include an adjustment for the patient's height or weight, and can therefore, be viewed as reliable only for patients with heights between 60 and 72 . More precise quantification using a 24-hour urine sample or height-based algorithm is recommended for patients outside of this range of height and for those individuals with more precise needs for GFR calculation. Resulting Agency Comment [id number] us Marg[facility]AT[facility] Final Result Performing Organization Address [facility] Co de Phone Number [facility] [address] [place] [address] * STREPTOCOCCUS, GROUP A CULTURE (08/04/2013 4:49 PM EDT) Pathologist [facility] Culture, Streptococci Group A, Throat SEE NOTE [facility] Comment: {STREPTOCOCCUS, GROUP A CULTURE {[id number]) ??STREPTOCOCCUS, GROUP A CULTURE ??MICRO NUMBER: ?[id number] ??TEST STATUS: ? FINAL ??SPECIMEN SOURCE: ?? THROAT ??SPECIMEN QUALITY: ??ADEQUATE ??RESULT: ?No beta hemolytic Streptococci isolated 08/04/2013 4:49 PM EDT 08/04/2013 5:01 PM EDT Narrative Resulting Agency Comment [id number] us Osmel Lozano MD LABORATORY Final Resul t Performing Organization Address City/[facility] Co de Phone Number [facility] [address] [place] [address] * CULTURE, URINE, ROUTINE (08/04/2013 4:49 PM EDT) Bacteria culture (Urine) SEE NOTE [facility] Comment: {CULTURE, URINE, ROUTINE {[id number]) ??CULTURE, URINE, ROUTINE ??MICRO NUMBER: ?[id number] ??TEST STATUS: ? FINAL ??SPECIMEN SOURCE: ?? URINE ??SPECIMEN QUALITY: ??ADEQUATE ??RESULT: ?No Growth 08/04/2013 4:49 PM EDT 08/04/2013 5:01 PM EDT Narrative Resulting Agency Comment [id number] us Osmel Lozano MD LABORATORY Final Resul t [facility] [address] [place] [address] * (ABNORMAL) URINALYSIS, MICROSCOPIC (08/04/2013 4:49 PM EDT) WBC (Urine) 0-5 < OR = 5 /HPF [facility] Comment:{WBC {[id number]) RBC (Urine Sed) 0-3 < OR = 3 /HPF [facility] Comment:{RBC {[id number]) Epithelial cells.squamous (Urine sed) 0-5 < OR = 5 /HPF [facility] Comment:{SQUAMOUS EPITHELIAL CELLS {[id number]) Bacteria (Urine) MODERATE(A) NONE SEEN /HPF [facility] Comment:{BACTERIA {[id number]) Service comment 01 MODERATE MUCOUS THREADS [facility] Comment:{COMMENTS {[id number]) Service comment 01 See Below [facility] Comment: {NOTE {[id number]) This urine was analyzed for the presence of WBC, RBC, bacteria, casts, and other formed elements. Only those elements seen were reported. 08/04/2013 4:49 PM EDT 08/04/2013 5:01 PM EDT Narrative Resulting Agency Comment [id number] us Osmel Lozano MD LAB SAME DAY RESULT Final R esult [facility] [address] [place] [address] documented in this encounter Visit Diagnoses Diagnosis Urinary tract infection Urinary tract infection, site not specified Sore throat Acute pharyngitis Viral gastroenteritis Intestinal infection due to other organism, not elsewhere classified documented in this encounter Care Teams Customer Care Voice Consultant Relationship Specialty Start Date End Date Erika Lopez MD PCP - General 04/22/13 03/12/14 Bart Cortez MD PCP - General Internal Medicine 03/13/14 07/19/14 Yobani Arredondo MD PCP - General Family Medicine 07/20/14 documented as of this encounter
--- OUTSIDE RECORDS SUMMARY | 2024-05-31 16:04 | XMS_ITS | Encounter Summary ---
Author Organization [facility] Address [address] [place] [address] Care Team Providers Care Mannequin Sander And Finisher Name Role Phone Erika Lopez MD Primary Care Provider Lubna Bart Lopez MD Primary Care Provider + [phone] Yobani Arredondo MD Primary Care Provider [phone] Encounter Details Date Type Department Care Team (Late st Contact Info) Description 08/29/2013 Orders Only [facility] Internal Medicine [address] [place] [address] Erika Lopez MD Social History Tobacco Use [...] Progress Notes * Erika Lopez MD - 08/31/2013 4:42 PM EDTQuick Note: Letter sent * Shawna Vee - 08/31/2013 8:29 AM EDTQuick Note: The patients lab results are at a normal/stable level by the protocol guidelines. documented in this encounter Plan of Treatment Not on file documented as of this encounter Procedures * Due to [place] [employer] law, this organization might not be sharing negative HIV tests. Procedure Name Priority Date/Time Associated Diagnosis Comments THYROID PEROXIDASEANTIBODIES Routine 08/29/2013 5:13 PM EDT Hypothyroidism T3 (TRIIODOTHYRONINE), TOTAL, SERUM Routine 08/29/2013 5:13 PM EDT Hypothyroidism TSH, 3RD GENERATION Routine 08/29/2013 5 :13 PM EDT Hypothyroidism T4, FREE, SERUM Routine 08/29/2013 5:13 PM EDT Hypothyroidism documented in this encounter Results * Due to [place] state law, this organization might not be sharing negative HIV tests. * T3 (TRIIODOTHYRONINE), TOTAL, SERUM (08/29/2013 5:13 PM EDT) T3 Total 92 76 - 181 ng/dL [facility] Comment:{T3, TOTAL {[id number]) 08/29/2013 5:13 PM EDT 08/29/2013 11:59 PM EDT Narrative Resulting Agency Comment [id number] us Erika Lopez MD LABORATORY Final Resu lt [facility] [address] [place] [address] * T4, FREE, SERUM (08/29/2013 5:13 PM EDT) FT4 1.0 0.8 - 1.8 ng/dL [facility] Comment:{T4, FREE {[id number]) 08/29/2013 5:13 PM EDT 08/29/2013 11:59 PM EDT Narrative Resulting Agency Comment [id number] us Erika Lopez MD LABORATORY Final Resu lt [facility] [address] [place] [address] * THYROID PEROXIDASEANTIBODIES (08/29/2013 5:13 PM EDT) Thyroperoxidase Ab 1 <9 IU/mL Q [facility] Comment:{THYROID PEROXIDASE ANTIBODIES {[id number]) 08/29/2013 5:13 PM EDT 08/29/2013 11:59 PM EDT Narrative Resulting Agency Comment [id number] us Erika Lopez MD LABORATORY Final Resu lt Performing Organization Address [facility] de Phone Number [facility] [address] [place] [address] * TSH, 3RD GENERATION (08/29/2013 5:13 PM EDT) TSH 1.62 mIU/L [facility] Comment: {TSH {[id number]) ?Reference Range ?> or = 20 Years ??0.40-4.50 ? Ranges ?First trimester ?0.26-2.66 ?Second trimester ?? 0.55-2.73 ?Third trimester ?0.43-2.91 08/29/2013 5:13 PM EDT 08/29/2013 11:59 PM EDT Narrative Resulting Agency Comment [id number] Erika Lopez MD LABORATORY Final Resu lt Performing Organization Address [facility] de Phone Number [facility] [address] [place] [address] documented in this encounter Visit Diagnoses Diagnosis Hypothyroidism Unspecified hypothyroidism documented in this encounter Care Teams Mannequin Sander And Finisher Relationship Specialty Start Date End Date Erika Lopez MD PCP - General 04/22/13 03/12/14 Bart Cortez MD PCP - General Internal Medicine 03/13/14 07/19/14 Yobani Arredondo MD PCP - General Family Medicine 07/20/14 documented as of this encounter
--- OUTSIDE RECORDS SUMMARY | 2024-05-31 16:04 | XMS_ITS | Clinical Summary ---
Author Organization [facility] Address [address] [place] [address] Care Team Providers Care Heat Curer Name Role Phone Yobani Arredondo MD Primary Care Provider Allergies Active Allergy Reactions Criticality Noted Date Comments Acetaminophen Anaphylaxis High 07/28/2013 Throat swelling Bee 03/21/2014 Medications * This document contains information received from the source organization and may not represent a complete record from that organization. 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 that was never manipulated Trauma history 03/21/2014 Change in bowel movement 03/21/2014 Raynaud's phenomenon 03/21/2014 Syncope 03/12/2014 Overview (03/12/2014): Refer to my note date 12/19/13 ekg nl Echo nl Ct hd neg Pt schd for holter yet to complete - Hyperprolactinemia (HHS) 03/10/2014 Overview (03/12/2014): Noted during w.u for amenorhoea Pt was refd booked to see endocrine in september Pt noshowed appt Advised reiterated to rebook f.u with endocrine Hypothyroidism 02/21/2014 Overview (07/27/2014): TSH Date Value Range Status 12/19/2013 4.67* Final {TSH {[id number]) Reference Range > or = 20 Years 0.40-4.50 Ranges First trimester 0.26-2.66 Second trimester 0.55-2.73 Third trimester 0.43-2.91 pt has recently stopped taking thyroid med restarted on levothyroxine 25 mcg 1 po qd Advised f.u tsh ordered Thyroid nodule 08/21/2013 Overview (03/12/2014): Small noted on thyroid us 09/02 Pt aware counselled without biopsy u/a to r.o benign vs canceerous lesion F.u thyroid us booked . Pt aware any change progression to see endocrine for further eval /biopsy Major Depressive Disorder, recurrent 07/28/2013 Overview (03/12/2014): 12/19/13 Advised refd to see [facility] behavioral med Pt noshowed multiple appts Pt opts to f.u with her own counsellor Pt denied suicidal ideation denied crisis sxs Any worsening crisis sxs pt aware to seek intervention thru er Family History Medical History Relation Name Comments Psych/Mental Health Maternal aunt bipolar Psych/Mental Health Maternal grandmother bipolar Psych/Mental Health Mother bipolar Relation Name Status Comments Maternal aunt Maternal grandmother Mother Social History Tobacco Use Types Packs/Day Years Used Date Smoking Tobacco: Never Smokeless Tobacco: Current Comments:smokes marijuana. 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 Not on file Not on file Last Filed Vital Signs Vital Sign Reading Time Taken Comments Blood Pressure 114/76 04/26/2014 2:59 PM EST right arm regular auto cuff Pulse 83 04/26/2014 2:59 PM EST Temperature 37.3 ??C (99.2 ??F) 12/19/2013 1 1:27 AM EDT Respiratory Rate 18 08/04/2013 4:27 PM EDT Oxygen Saturation 100% 12/19/2013 11: 27 AM EDT Inhaled Oxygen Concentration - - Weight 67.6 kg (149 lb) 04/26/2014 2:59 PM EST Height 154.9 cm (5' 1 ) 04/26/2014 2:59 PM EST Body Mass Index 28.15 04/26/2014 2:59 PM EST Plan of Treatment Health Maintenance Due Date Last Done Comments Hepatitis C Screening 1989 Pap Smear 2005 DTaP/Tdap/Td (1 - Tdap) 06/27/2007 Hep B (1 of 3 - 19+ 3-dose series) 2008 COVID-19 Vaccine ( - 2023-2 5 season) 2023 Influenza (#1) 2023 Zoster (Shingrix) (1 of 2) 06/27/2039 HPV Vaccine Aged Out No longer eligi ble based on patient's age to complete this topic Hep A Aged Out No longer eligi ble based on patient's age to complete this topic Hib Aged Out No longer eligi ble based on patient's age to complete this topic Meningococcal ACWY Aged Out No longer eligible based on patient's age to complete this topic Pneumococcal Aged Out No longer eligi ble based on patient's age to complete this topic Insurance [facility] MEDIC[facility]/COMMERCIAL Care Teams Heat Curer Relationship Specialty Start Date End Date Yobani Arredondo MD PCP - General Family Medicine 07/20/14
--- OUTSIDE RECORDS SUMMARY | 2024-05-31 16:04 | XMS_ITS | Encounter Summary ---
Author Organization [facility] Address [address] [place] [address] Care Team Providers Care Patient Financial Counselor Name Role Phone Erika Lopez MD Primary Care Provider Lubna Bart Lopez MD Primary Care Provider + [phone] Yobani Arredondo MD Primary Care Provider [phone] Encounter Details Date Type Department Care Team (Late st Contact Info) Description 03/12/2014 Orders Only [facility] Internal Medicine [address] [place] [address] Erika Lopez MD Social History Tobacco Use Types Packs/Day Years Used Date Smoking Tobacco: Never Smokeless Tobacco: Never Alcohol Use Standard Drinks/Week Comments Not Asked 0 (1 standard drink = 0.6 oz pur e alcohol) Comments No Sex and Gender Information Value Date Recorded Sex Assigned at Not on file Legal Sex Female 11:46 AM EDT Gender Identity Not on file Sexual Orientation Not on file 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 Procedure Name Priority Date/Time Associated Diagnosis Comments THYROID STIMULATING HORMONE (TSH) WITH FREE T4 REFLEX, SERUM Routine 03/12/2014 3:22 PM EST Hypothyroidism documented in this encounter Results * Due to [facility] law, this organization might not be sharing negative HIV tests. * THYROID STIMULATING HORMONE (TSH) WITH FREE T4 REFLEX, SERUM (03/12/2014 3:22 PM EST) TSH 0.97 mIU/L [facility] Comment: {TSH W/REFLEX TO FT4 {[id number]) ?Reference Range ?> or = 20 Years ??0.40-4.50 ? Ranges ?First trimester ?0.26-2.66 ?Second trimester ?? 0.55-2.73 ?Third trimester ?0.43-2.91 03/12/2014 3:22 PM EST 03/13/2014 12:22 AM EST Narrative Resulting Agency Comment [id number] us Erika Lopez MD LABORATORY Final Resu lt Performing Organization Address City/State/[facility] Co de Phone Number [facility] [address] [place] [address] documented in this encounter Visit Diagnoses Diagnosis Hypothyroidism Unspecified hypothyroidism documented in this encounter Care Teams Patient Financial Counselor Relationship Specialty Start Date End Date Erika Lopez MD PCP - General 04/22/13 03/12/14 Bart Cortez MD PCP - General Internal Medicine 03/13/14 07/19/14 Yobani Arredondo MD PCP - General Family Medicine 07/20/14 documented as of this encounter
--- OUTSIDE RECORDS SUMMARY | 2024-05-31 16:04 | XMS_ITS | Clinical Summary ---
Author Organization [facility] ity Address [address] [place] [address] Care Team Providers Care Balance Bridge Assembler Name Role Phone Unavailable Primary Care Provider Unavailabl e Social History Tobacco Use Types Packs/Day Years Used Date Smoking Tobacco: Never Assessed Comments Unknown Sex and Gender Information Value Date Recorded Sex Assigned at Not on file Legal Sex Female 3:31 AM EST Gender Identity Not on file Sexual Orientation Not on file Plan of Treatment Health Maintenance Due Date Last Done Comments DTaP,Tdap,and Td Vaccines (1 - Tdap) 2008 Hepatitis B Vaccines (1 of 3 - 19+ 3-dose series) 2008 Cervical Cancer Screening: P ap Smear 2010 COVID-19 Vaccine ( - 2023-2 5 season) 2023 Influenza Vaccine (#1) 2023 HIB Vaccines Aged Out No longer eligi ble based on patient's age to complete this topic HPV Vaccines Aged Out No longer eligi ble based on patient's age to complete this topic Hepatitis A Vaccines Aged Out No long er eligible based on patient's age to complete this topic IPV Vaccines Aged Out No longer eligi ble based on patient's age to complete this topic MMR Vaccines Aged Out No longer eligi ble based on patient's age to complete this topic Meningococcal ACWY Vaccine Aged Out N o longer eligible based on patient's age to complete this topic Meningococcal B Vacine Aged Out No lo nger eligible based on patient's age to complete this topic Pneumococcal Vaccine: Pediat rics (0 to 5 Years) and At-Risk Patients (6 to 64 Years) Aged Out No longer eligible b ased on patient's age to complete this topic RSV Immunization Patients Un ubaldo 20 months Aged Out No longer eligible b ased on patient's age to complete this topic Varicella Vaccines Aged Out No longer eligible based on patient's age to complete this topic
--- OUTSIDE RECORDS SUMMARY | 2024-05-31 16:04 | XMS_ITS | Encounter Summary ---
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 documented in this encounter Plan of Treatment Not on file documented as of this encounter Procedures * Due to [place] [employer] law, this organization might not be sharing negative HIV tests. Procedure Name Priority Date/Time Associated Diagnosis Comments EKG-TO BE READ & BILLED BY ADULT OR PEDIATRIC CARDIOLOGY Routine 12/19/2013 12:13 PM EDT Syncope CBC INCLUDES DIFFERENTIAL AND PLATELET COUNT Routine 12/19/2013 12:10 PM EDT Syncope HCG, (HUMAN CHORIONIC GONADOTROPIN), TOTAL, QUANTITATIVE Routine 12/19/2013 12:10 PM EDT Syncope TSH, 3RD GENERATION Routine 12/19/2013 1 2:10 PM EDT Syncope HEPATIC FUNCTION PANEL (ALT,AST,ALK PH,BILI'S,TP,ALB) Routine 12/19/2013 12:10 PM EDT Syncope BASIC METABOLIC PANEL WITH (GFR) Routine 12/19/2013 12:10 PM EDT Syncope documented in this encounter Results * Due to [place] law, this organization might not be sharing negative HIV tests. * EKG-TO BE READ AND BILLED BY CARDIOLOGY (12/19/2013 12:13 PM EDT) VENTRICULAR RATE 61 BPM MUS E EKG SYSTEM ATRIAL RATE 61 BPM MUSE EKG SYSTEM P-R INTERVAL 144 ms MUSE EK G SYSTEM QRS DURATION 94 ms MUSE EK G SYSTEM QT 424 ms MUSE EKG SYSTEM QTC 426 ms MUSE EKG SYSTEM P AXIS 18 degrees MUSE EKG SYSTEM R AXIS 21 degrees MUSE EKG SYSTEM T AXIS 26 degrees MUSE EKG SYSTEM EKG INTERPRETATION Normal sinus rhythm Normal ECG No previous ECGs available MUSE EKG SYSTEM 12/19/2013 12:1 3 PM EDT Erika Lopez MD CARDIOVASCULAR-WITH INBSKT RTG Final Result Performing Organization Address [facility] Co de Phone Number MUSE EKG SYSTEM * HCG, (HUMAN CHORIONIC GONADOTROPIN), TOTAL, QUANTITATIVE (12/19/2013 12:10 PM EDT) [facility] HCG, Total, Quantitative 2 mIU/mL [facility] Comment: {HCG, TOTAL, QN {[id number]) Reference Range Non or premenopausal ?<5 Postmenopausal ? <10 Values from different assay methods may vary. The use of this assay to monitor or to diagnose patients with cancer or any condition unrelated to has not been cleared or approved by the FDA or the concrete engineering technician of the assay. 12/19/2013 12:1 0 PM EDT 12/20/2013 4:29 AM EDT Narrative Resulting Agency Comment [id number] Erika Lopez MD LAB SAME DAY RESULT Final Result Performing Organization Address [facility] de Phone Number [facility] [address] [place] [address] * HEPATIC FUNCTION PANEL (12/19/2013 12:10 PM EDT) Pathologist [facility] Protein Total (Serum) 7.1 6.1 - 8.1 g/dL [facility] Comment:{PROTEIN, TOTAL {[id number]) Albumin 4.1 3.6 - 5.1 g/dL [facility] Comment:{ALBUMIN {[id number]) Globulin 3.0 1.9 - 3.7 g/dL (calc) [facility] Comment:{GLOBULIN {[id number]) Albumin/Globulin 1.4 1.0 - 2.5 (calc) [facility] Comment:{ALBUMIN/GLOBULIN RA VINAYAK {[id number]) Bilirubin Total 0.5 0.2 - 1.2 mg/dL [facility] Comment:{BILIRUBIN, TOTAL {[id number]) Bilirubin Direct 0.1 < OR = 0.2 mg/dL [facility] Comment:{BILIRUBIN, DIRECT { [id number]) Bilirubin Indirect 0.4 0.2 - 1.2 mg/dL (calc) [facility] Comment:{BILIRUBIN, INDIRECT {[id number]) Alkaline phosphatase 64 33 - 115 U/L [facility] Comment:{ALKALINE PHOSPHATAS E {[id number]) AST (SGOT) 13 10 - 30 U/L [facility] Comment:{AST {[id number]) ALT (SGPT) 6 6 - 29 U/L [facility] Comment:{ALT {[id number]) 12/19/2013 12:1 0 PM EDT 12/20/2013 4:29 AM EDT Narrative Resulting Agency Comment [id number] us Erika Lopez MD LABORATORY Final Resu lt [facility] [address] [place] [address] * (ABNORMAL) TSH, 3RD GENERATION (12/19/2013 12:10 PM EDT) TSH 4.67(H) mIU/L [facility] Comment: {TSH {[id number]) ?Reference Range ?> or = 20 Years ??0.40-4.50 ? Ranges ?First trimester ?0.26-2.66 ?Second trimester ?? 0.55-2.73 ?Third trimester ?0.43-2.91 12/19/2013 12:1 0 PM EDT 12/20/2013 4:29 AM EDT Narrative Resulting Agency Comment [id number] us Erika Lopez MD LABORATORY Final Resu lt [facility] [address] [place] [address] * BASIC METABOLIC PANEL WITH (GFR) (12/19/2013 12:10 PM EDT) Glucose 86 65 - 99 mg/dL [facility] Comment: {GLUCOSE {[id number]) ? Fasting reference interval Urea Nitrogen Blood (BUN) 10 7 - 25 mg/dL [facility] Comment:{UREA NITROGEN (BUN) {[id number]) Creatinine 0.72 0.50 - 1.10 mg/dL [facility] Comment:{CREATININE {[id number]) GFR 117 > OR = 60 mL/min/1. 73m2 [facility] Comment:{eGFR NON-AFR. AMERI CAN {[id number]) GFR () 136 > OR = 60 mL/min/1. 73m2 [facility] Comment:{eGFR AMERIC AN {[id number]) BUN/Creatinine Ratio NOT APPLICABLE 6 - 22 (calc) [facility] Comment:{BUN/CREATININE RATI O {[id number]) Sodium 141 135 - 146 mmol/L [facility] Comment:{SODIUM {[id number]) Potassium 3.6 3.5 - 5.3 mmol/L [facility] Comment:{POTASSIUM {[id number]) Chloride 106 98 - 110 mmol/L [facility] Comment:{CHLORIDE {[id number]) Carbon dioxide 24 19 - 30 mmol/L [facility] Comment:{CARBON DIOXIDE {[id number]) Calcium 9.4 8.6 - 10.2 mg/dL [facility] Comment:{CALCIUM {[id number]) 12/19/2013 12:1 0 PM EDT 12/20/2013 4:29 AM EDT Narrative [facility] - 12/20/2013 8:30 AM EDT Please note that this estimated GFR [...] needs for GFR calculation. Resulting Agency Comment [id number] us Erika Lopez MD LABORATORY Final Resu lt [facility] [address] [place] [address] * (ABNORMAL) CBC INCLUDES DIFFERENTIAL AND PLATELET COUNT (12/19/2013 12:10 PM EDT) WBC 10.6 3.8 - 10.8 Thousand/ uL [facility] Comment:{WHITE BLOOD CELL CO UNT {[id number]) RBC 4.69 3.80 - 5.10 Million/u L [facility] Comment:{RED BLOOD CELL COUN T {[id number]) Hemoglobin 13.6 11.7 - 15.5 g/dL [facility] Comment:{HEMOGLOBIN {[id number]) Hematocrit 43.4 35.0 - 45.0 % [facility] Comment:{HEMATOCRIT {[id number]) MCV 92.5 80.0 - 100.0 fL [facility] Comment:{MCV {[id number]) MCH 29.1 27.0 - 33.0 pg [facility] Comment:{MCH {[id number]) MCHC 31.5(L) 32.0 - 36.0 g/dL [facility] Comment:{MCHC {[id number]) RDW 14.3 11.0 - 15.0 % [facility] Comment:{RDW {[id number]) PLT 323 140 - 400 Thousand/ uL [facility] Comment:{PLATELET COUNT {[id number]) MPV 9.0 7.5 - 11.5 fL [facility] Comment:{MPV {[id number]) Neutrophils # 7187 1500 - 7800 cells/uL [facility] Comment:{ABSOLUTE NEUTROPHIL S {[id number]) Lymphocytes # 2661 850 - 3900 cells/uL [facility] Comment:{ABSOLUTE LYMPHOCYTE S {[id number]) Monocytes # 594 200 - 950 cells/uL [facility] Comment:{ABSOLUTE MONOCYTES {[id number]) Eosinophils # 117 15 - 500 cells/uL [facility] Comment:{ABSOLUTE EOSINOPHIL S {[id number]) Basophils # 42 0 - 200 cells/uL [facility] Comment:{ABSOLUTE BASOPHILS {[id number]) Neutrophils % 67.8 % [facility] Comment:{NEUTROPHILS {[id number]) Lymphocytes % 25.1 % [facility] Comment:{LYMPHOCYTES {[id number]) Monocytes % 5.6 % [facility] Comment:{MONOCYTES {[id number]) Eosinophils % 1.1 % [facility] Comment:{EOSINOPHILS {[id number]) Basophils % 0.4 % [facility] Comment:{BASOPHILS {[id number]) 12/19/2013 12:1 0 PM EDT 12/20/2013 4:29 AM EDT Narrative Resulting Agency Comment [id number] Erika Lopez MD LAB SAME DAY RESULT Final Result [facility] [address] [place] [address] documented in this encounter Visit Diagnoses Diagnosis Syncope Syncope and collapse documented in this encounter Care Teams Spa Attendant Relationship Specialty Start Date End Date Erika Lopez MD PCP - General 04/22/13 03/12/14 Bart Cortez MD PCP - General Internal Medicine 03/13/14 07/19/14 Yobani Arredondo MD PCP - General Family Medicine 07/20/14 documented as of this encounter
--- OUTSIDE RECORDS SUMMARY | 2024-05-31 16:04 | XMS_ITS | Encounter Summary ---
Author Organization [facility] Address [address] [place] [address] Care Team Providers Care Toggler Name Role Phone Erika Lopez MD Primary Care Provider Lubna Bart Lopez MD Primary Care Provider + [phone] Yobani Arredondo MD Primary Care Provider [phone] Encounter Details Date Type Department Care Team (Late st Contact Info) Description 06/30/2013 Orders Only [facility] [address] [place] [address] Dawood Marino MD [address] [place] [phone] Social History Tobacco Use Types Packs/Day Years [...] as of this encounter Progress Notes * Flory Tran NP PhD - 07/03/2013 7:19 PM EDTQuick Note: GC/chlamydia neg * Flory Tran NP PhD - 07/03/2013 2:43 PM EDTQuick Note: Noted HIV neg * Dawood Marino MD - 07/01/2013 9:11 PM EDTQuick Note: No action needed after rew documented in this encounter Plan of Treatment Not on file documented as of this encounter Procedures * Due to [place] state law, this organization might not be sharing negative HIV tests. Procedure Name Priority Date/Time Associated Diagnosis Comments CHLAMYDIA TRACHOMATIS/N. GONORRHOEAE (GC) RNA, TMA (APTIMA GENITAL SWAB) Routine 06/30/2013 7:07 PM EDT Fever Left flank pain Chronic abdominal pain BV/VAGINITIS PANELDNA PROBE(AFFIRM) Routine 06/30/2013 7:07 PM EDT Fever Left flank pain Chronic abdominal pain WET PREP STAT (All results called to provider) 06/30/2013 7:07 PM EDT Fever Left flank pain Chronic abdominal pain HCG, TOTAL, QL STAT (All results called to provider) 06/30/2013 5:57 PM EDT Chronic abdominal pain CULTURE, URINE, ROUTINE Routine 06/30/2013 5:28 PM EDT URINALYSIS, MICROSCOPIC STAT (All results called to provider) 06/30/2013 5:28 PM EDT BORRELIA BURGDORFERI AB (LYME), EIA WITH REFLEX IGG, IGM WB Routine 06/30/2013 5:15 PM EDT Fever INFLUENZA A AND B, RAPID ANTIGEN NASAL SWAB STAT (All results called to provider) 06/30/2013 5:15 PM EDT Fever Left flank pain CBC INCLUDES DIFFERENTIAL AND PLATELET COUNT STAT (All results called to provider) 06/30/2013 5:15 PM EDT Fever HEPATIC FUNCTION PANEL (ALT,AST,ALK PH,BILI'S,TP,ALB) STAT (All results called to provider) 06/30/2013 5:15 PM EDT Fever BASIC METABOLIC PANEL WITH (GFR) STAT (All results called to provider) 06/30/2013 5:15 PM EDT Fever documented in this encounter Results * Due to [place] state law, this organization might not be sharing negative HIV tests. * WET PREP (06/30/2013 7:07 PM EDT) Specimen source [facility] Comment:{SOURCE: {[id number]) Microscopic observation NO CLUE CELLS SEEN [facility] Comment: {RESULT: {[id number]) NO FUNGAL ELEMENTS SEEN. NO TRICHOMONAS VAGINALIS SEEN. 06/30/2013 7:07 PM EDT 06/30/2013 7:12 PM EDT Narrative Resulting Agency Comment [id number] us Dawood Marino MD LAB SAME DAY RESULT Final Result Performing Organization Address [facility] Co de Phone Number [facility] [address] [place] [address] * BV/VAGINITIS PANELDNA PROBE (06/30/2013 7:07 PM EDT) Trichomonas vaginalis rRNA (Genital) NOT DETECTED NOT DETECTED [facility] Comment:{TRICHOMONAS: {[id number]) Gardnerella vaginalis rRNA (Genital) NOT DETECTED NOT DETECTED [facility] Comment:{GARDNERELLA: {[id number]) Christelle sp rRNA (Vag) NOT DETECTED NOT DETECTED [facility] Comment:{CHRISTELLE: {[id number]) 06/30/2013 7:07 PM EDT 06/30/2013 7:12 PM EDT Narrative Resulting Agency Comment [id number] us Dawood Marino MD LABORATORY Final Result Performing Organization Address [facility] Co de Phone Number [facility] [address] [place] [address] * CHLAMYDIA TRACHOMATIS/N. GONORRHOEAE (GC) RNA, TMA (APTIMA GENITAL SWAB) (06/30/2013 7:07 PM EDT) Chlamydia trachomatis rRNA NOT DETECTED NOT DETECTED [facility] Comment:{CHLAMYDIA TRACHOMAT IS RNA, TMA {[id number]) Neisseria Gonorrhoeae rRNA NOT DETECTED NOT DETECTED [facility] Comment:{NEISSERIA GONORRHOE AE RNA, TMA {[id number]) COMMENT SEE NOTE [facility] Comment: {COMMENT {[id number]) This test was performed using the APTIMA COMBO2 Assay ([employer] The analytical performance characteristics of this assay, when used to test Sure[employer] specimens have been determined by [employer]. 06/30/2013 7:07 PM EDT 06/30/2013 7:12 PM EDT Narrative Resulting Agency Comment [id number] us Dawood Marino MD LABORATORY Final Result Performing Organization Address City/[facility]/ZIP Co de Phone Number [facility] [address] [place] [address] * HCG, TOTAL, QL (06/30/2013 5:57 PM EDT) Pathologist [facility] HCG, Qualitative (Screen) NEGATIVE [facility] Comment: {HCG, TOTAL, QL {[id number]) Reference Range Non-: Negative : ? Positive 06/30/2013 5:57 PM EDT 06/30/2013 6:02 PM EDT Narrative Resulting Agency Comment [id number] us Dawood Marino MD LAB SAME DAY RESULT Final Result [facility] [address] [place] [address] * CULTURE, URINE, ROUTINE (06/30/2013 5:28 PM EDT) Bacteria culture (Urine) SEE NOTE [facility] Comment: {CULTURE, URINE, ROUTINE {[id number]) ??CULTURE, URINE, ROUTINE ??MICRO NUMBER: ?[id number] ??TEST STATUS: ? FINAL ??SPECIMEN SOURCE: ?? URINE ??SPECIMEN QUALITY: ??ADEQUATE ??RESULT: ?Multiple organisms present, each less than 10,000 ? CFU/mL. These organisms, commonly found on ? external and internal genitalia, are considered ? to be colonizers. No further testing performed. 06/30/2013 5:28 PM EDT 06/30/2013 5:49 PM EDT Narrative Resulting Agency Comment [id number] us Tyler Brown MD LABORATORY Final Result [facility] [address] [place] [address] * (ABNORMAL) URINALYSIS, MICROSCOPIC (06/30/2013 5:28 PM EDT) WBC (Urine) 0-5 < OR = 5 /HPF [facility] Comment:{WBC {[id number]) RBC (Urine Sed) NONE SEEN < OR = 3 /HPF [facility] Comment:{RBC {[id number]) Epithelial cells.squamous (Urine sed) 0-5 < OR = 5 /HPF [facility] Comment:{SQUAMOUS EPITHELIAL CELLS {[id number]) Transitional cells (Urine sed) NONE SEEN < OR = 5 /HPF [facility] Comment:{TRANSITIONAL EPITHE LIAL CELLS {[id number]) Epithelial cells.renal (Urine sed) NONE SEEN < OR = 3 /HPF [facility] Comment:{RENAL EPITHELIAL CE LLS {[id number]) Bacteria (Urine) MANY(A) NONE SEEN /HPF [facility] Comment:{BACTERIA {[id number]) Yeast (Urine sed) NONE SEEN NONE SEEN /HPF [facility] Comment:{YEAST {[id number]) Service comment 01 MANY MUCOUS THREADS [facility] Comment:{COMMENTS {[id number]) Service comment 01 See Below [facility] Comment: {NOTE {[id number]) This urine was analyzed for the presence of WBC, RBC, bacteria, casts, and other formed elements. Only those elements seen were reported. 06/30/2013 5:28 PM EDT 06/30/2013 5:49 PM EDT Narrative Resulting Agency Comment [id number] us Tyler Brown MD LAB SAME DAY RESULT Final Re sult Performing Organization Address [facility] Co de Phone Number [facility] [address] [place] [address] * INFLUENZA A AND B ANTIGENDETECTION, EIA (06/30/2013 5:15 PM EDT) Specimen source NASAL [facility] Comment:{SOURCE: {[id number]) Influenza Virus A Ag NOT DETECTED NOT DETECTED [facility] Comment:{INFLUENZA A ANTIGEN {[id number]) Influenza virus B Ag (Naspopharynx ) NOT DETECTED NOT DETECTED [facility] Comment:{INFLUENZA B ANTIGEN {[id number]) 06/30/2013 5:15 PM EDT 06/30/2013 5:28 PM EDT Narrative Resulting Agency Comment [id number] us Dawood Marino MD LAB SAME DAY RESULT Final Result Performing Organization Address [facility] Co de Phone Number [facility] [address] [place] [address] * BORRELIA BURGDORFERI AB (LYME), EIA WITH REFLEX IGG, IGM WB (06/30/2013 5:15 PM EDT) Borrelia burgdorferi Ab < OR = 0.90 index [facility] Comment: {LYME AB SCREEN {[id number]) ? Index ? Interpretation ? ----- ? < or = 0.90 ? Negative ? 0.91-1.09 ? Equivocal ? > or = 1.10 ? Positive The use of purified VlsE-1 and PepC10 antigens in this assay provides improved specificity compared to assays that utilize whole cell lysates of B. burgdorferi, the causative agent of Lyme disease, and slightly better sensitivity compared to the C6 antibody assay. As recommended by the Food and Drug Administration (FDA), all samples with positive or equivocal results in a Borrelia burgdorferi antibody ?? EIA (screening) will be tested using a blot method. Positive or equivocal screening test results should not be interpreted as truly positive until verified as such using a supplemental assay (e.g., B. burgdorferi blot). The screening test and/or blot for B. burgdorferi antibodies may be falsely negative in early stages of Lyme disease, including the period when erythema migrans is apparent. 06/30/2013 5:15 PM EDT 06/30/2013 5:28 PM EDT Narrative Resulting Agency Comment [id number] Dawood Marino MD LABORATORY Final Result Performing Organization Address City/State/[facility] Co de Phone Number [facility] [address] [place] [address] * HEPATIC FUNCTION PANEL (06/30/2013 5:15 PM EDT) Protein Total (Serum) 6.4 6.1 - 8.1 g/dL [facility] Comment:{PROTEIN, TOTAL {[id number]) Albumin 4.0 3.6 - 5.1 g/dL [facility] Comment:{ALBUMIN {[id number]) Globulin 2.4 1.9 - 3.7 g/dL (calc) [facility] Comment:{GLOBULIN {[id number]) Albumin/Globulin 1.7 1.0 - 2.5 (calc) [facility] Comment:{ALBUMIN/GLOBULIN RA VINAYAK {[id number]) Bilirubin Total 0.4 0.2 - 1.2 mg/dL [facility] Comment:{BILIRUBIN, TOTAL {[id number]) Bilirubin Direct 0.1 < OR = 0.2 mg/dL [facility] Comment:{BILIRUBIN, DIRECT { [id number]) Bilirubin Indirect 0.3 0.2 - 1.2 mg/dL (calc) [facility] Comment:{BILIRUBIN, INDIRECT {[id number]) Alkaline phosphatase 62 33 - 115 U/L [facility] Comment:{ALKALINE PHOSPHATAS E {[id number]) AST (SGOT) 13 10 - 30 U/L [facility] Comment:{AST {[id number]) ALT (SGPT) 8 6 - 29 U/L [facility] Comment:{ALT {[id number]) 06/30/2013 5:15 PM EDT 06/30/2013 5:28 PM EDT Narrative Resulting Agency Comment [id number] Dawood Marino MD LABORATORY Final Result [facility] [address] [place] [address] * (ABNORMAL) CBC INCLUDES DIFFERENTIAL AND PLATELET COUNT (06/30/2013 5:15 PM EDT) WBC 10.6 3.8 - 10.8 Thousand/ uL [facility] Comment:{WHITE BLOOD CELL CO UNT {[id number]) RBC 4.73 3.80 - 5.10 Million/u L [facility] Comment:{RED BLOOD CELL COUN T {[id number]) Hemoglobin 13.2 11.7 - 15.5 g/dL [facility] Comment:{HEMOGLOBIN {[id number]) Hematocrit 41.7 35.0 - 45.0 % [facility] Comment:{HEMATOCRIT {[id number]) MCV 88.2 80.0 - 100.0 fL [facility] Comment:{MCV {[id number]) MCH 27.9 27.0 - 33.0 pg [facility] Comment:{MCH {[id number]) MCHC 31.6(L) 32.0 - 36.0 g/dL [facility] Comment:{MCHC {[id number]) RDW 14.1 11.0 - 15.0 % [facility] Comment:{RDW {[id number]) PLT 362 140 - 400 Thousand/ uL [facility] Comment:{PLATELET COUNT {[id number]) MPV 7.7 7.5 - 11.5 fL [facility] Comment:{MPV {[id number]) Neutrophils # 6604 1500 - 7800 cells/uL [facility] Comment:{ABSOLUTE NEUTROPHIL S {[id number]) Lymphocytes # 2968 850 - 3900 cells/uL [facility] Comment:{ABSOLUTE LYMPHOCYTE S {[id number]) Monocytes # 869 200 - 950 cells/uL [facility] Comment:{ABSOLUTE MONOCYTES {[id number]) Eosinophils # 106 15 - 500 cells/uL [facility] Comment:{ABSOLUTE EOSINOPHIL S {[id number]) Basophils # 53 0 - 200 cells/uL [facility] Comment:{ABSOLUTE BASOPHILS {[id number]) Neutrophils % 62.3 % [facility] Comment:{NEUTROPHILS {[id number]) Lymphocytes % 28.0 % [facility] Comment:{LYMPHOCYTES {[id number]) Monocytes % 8.2 % [facility] Comment:{MONOCYTES {[id number]) Eosinophils % 1.0 % [facility] Comment:{EOSINOPHILS {[id number]) Basophils % 0.5 % [facility] Comment:{BASOPHILS {[id number]) 06/30/2013 5:15 PM EDT 06/30/2013 5:28 PM EDT Narrative Resulting Agency Comment [id number] us Dawood Marino MD LAB SAME DAY RESULT Final Result [facility] [address] [place] [address] * BASIC METABOLIC PANEL WITH (GFR) (06/30/2013 5:15 PM EDT) Glucose 82 65 - 99 mg/dL [facility] Comment: {GLUCOSE {[id number]) ? Fasting reference interval Urea Nitrogen Blood (BUN) 10 7 - 25 mg/dL [facility] Comment:{UREA NITROGEN (BUN) {[id number]) Creatinine 0.71 0.50 - 1.10 mg/dL [facility] Comment:{CREATININE {[id number]) GFR 119 > OR = 60 mL/min/1. 73m2 [facility] Comment:{eGFR NON-AFR. AMERI CAN {[id number]) GFR () 138 > OR = 60 mL/min/1. 73m2 [facility] Comment:{eGFR AMERIC AN {[id number]) BUN/Creatinine Ratio NOT APPLICABLE 6 - (calc) [facility] Comment:{BUN/CREATININE RATI O {[id number]) Sodium 139 135 - 146 mmol/L [facility] Comment:{SODIUM {[id number]) Potassium 3.9 3.5 - 5.3 mmol/L [facility] Comment:{POTASSIUM {[id number]) Chloride 106 98 - 110 mmol/L [facility] Comment:{CHLORIDE {[id number]) Carbon dioxide 27 19 - 30 mmol/L [facility] Comment:{CARBON DIOXIDE {[id number]) Calcium 9.2 8.6 - 10.2 mg/dL [facility] Comment:{CALCIUM {[id number]) 06/30/2013 5:15 PM EDT 06/30/2013 5:28 PM EDT Narrative [facility] - 06/30/2013 7:00 PM EDT Please note that this estimated [...] needs for GFR calculation. Resulting Agency Comment [id number] Dawood Marino MD LABORATORY Final Result Performing Organization Address City/State/[facility] Co de Phone Number [facility] [address] [place] [address] documented in this encounter Visit Diagnoses Diagnosis Fever Fever, unspecified Left flank pain Abdominal pain, unspecified site Chronic abdominal pain Abdominal pain, unspecified site documented in this encounter Care Teams Toggler Relationship Specialty Start Date End Date Erika Lopez MD PCP - General 04/22/13 03/12/14 Bart Cortez MD PCP - General Internal Medicine 03/13/14 07/19/14 Yobani Arredondo MD PCP - General Family Medicine 07/20/14 documented as of this encounter
--- OUTSIDE RECORDS SUMMARY | 2024-05-31 16:04 | XMS_ITS | Encounter Summary ---
Author Organization [facility] Address [address] [place] [address] Care Team Providers Care Database Dba Name Role Phone Erika Lopez MD Primary Care Provider Lubna Bart Lopez MD Primary Care Provider + [phone] Yobani Arredondo MD Primary Care Provider [phone] Encounter Details Date Type Department Care Team (Late st Contact Info) Description 07/28/2013 Orders Only [facility] Internal Medicine [address] [place] [address] Erika Lopez MD Social History Tobacco Use [...] Progress Notes * Erika Lopez MD - 07/30/2013 9:14 PM EDTQuick Note: Call pt inform labs done for amenorhoea Showed her tst is negative but tsh thyroid is hypothyroid and mild elevated prolactin level Advise book endocrine consult dx elevated prolactin level amenorhoea Start levothyroxine 25 microgramm 1 tablet a day book f.u tsh x 12 weeks documented in this encounter Plan of Treatment Not on file documented as of this encounter Procedures * Due to [place] state law, this organization might not be sharing negative HIV tests. Procedure Name Priority Date/Time Associated Diagnosis Comments HCG, (HUMAN CHORIONIC GONADOTROPIN), TOTAL, QUANTITATIVE Routine 07/28/2013 11:53 AM EDT Irregular periods TSH, 3RD GENERATION Routine 07/28/2013 1 1:53 AM EDT Irregular periods PROLACTIN Routine 07/28/2013 11:53 AM EDT Irregular periods documented in this encounter Results * Due to [place] state law, this organization might not be sharing negative HIV tests. * (ABNORMAL) PROLACTIN (07/28/2013 11:53 AM EDT) Prolactin 31.1(H) ng/mL [facility] Comment: {PROLACTIN {[id number]) ?Reference Range Females ?Non- ?3.0-30.0 ? 10.0-209.0 ?Postmenopausal ?2.0-20.0 07/28/2013 11:5 3 AM EDT 07/28/2013 9:55 PM EDT Narrative Resulting Agency Comment [id number] us Erika Lopez MD LAB SAME DAY RESULT Final Result [facility] [address] [place] [address] * (ABNORMAL) TSH, 3RD GENERATION (07/28/2013 11:53 AM EDT) TSH 4.85(H) mIU/L [facility] Comment: {TSH {[id number]) ?Reference Range ?> or = 20 Years ??0.40-4.50 ? Ranges ?First trimester ?0.26-2.66 ?Second trimester ?? 0.55-2.73 ?Third trimester ?0.43-2.91 07/28/2013 11:5 3 AM EDT 07/28/2013 9:55 PM EDT Narrative Resulting Agency Comment [id number] Erika Lopez MD LABORATORY Final Resu lt Performing Organization Address [facility] de Phone Number [facility] [address] [place] [phone] * HCG, (HUMAN CHORIONIC GONADOTROPIN), TOTAL, QUANTITATIVE (07/28/2013 11:53 AM EDT) HCG, Total, Quantitative <2 mIU/mL [facility] Comment: {HCG, TOTAL, QN {[id number]) Reference Range Non or premenopausal ?<5 Postmenopausal ? <10 Values from different assay methods may vary. The use of this assay to monitor or to diagnose patients with cancer or any condition unrelated to has not been cleared or approved by the FDA or the crimping machine operator of the assay. 07/28/2013 11:5 3 AM EDT 07/28/2013 9:55 PM EDT Narrative Resulting Agency Comment [id number] Erika Lopez MD LAB SAME DAY RESULT Final Result Performing Organization Address [facility] [[email or web address]] Co de Phone Number [facility] [address] [place] [address] documented in this encounter Visit Diagnoses Diagnosis Irregular periods Irregular menstrual cycle documented in this encounter Care Teams Database Dba Relationship Specialty Start Date End Date Erika Lopez MD PCP - General 04/22/13 03/12/14 Bart Cortez MD PCP - General Internal Medicine 03/13/14 07/19/14 Yobani Arredondo MD PCP - General Family Medicine 07/20/14 documented as of this encounter
--- OUTSIDE RECORDS SUMMARY | 2024-05-31 16:04 | XMS_ITS | Encounter Summary ---
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 Procedure Name Priority Date/Time Associated Diagnosis Comments THYROID STIMULATING HORMONE (TSH) WITH FREE T4 REFLEX, SERUM Routine 09/03/2014 3:52 PM EDT Hypothyroidism due to acquired atrophy of thyroid documented in this encounter Results * Due to [place] [employer] law, this organization might not be sharing negative HIV tests. * THYROID STIMULATING HORMONE (TSH) WITH FREE T4 REFLEX, SERUM (09/03/2014 3:52 PM EDT) TSH 0.73 mIU/L [facility] Comment: {TSH W/REFLEX TO FT4 {[id number]) ?Reference Range ?> or = 20 Years ??0.40-4.50 ? Ranges ?First trimester ?0.26-2.66 ?Second trimester ?? 0.55-2.73 ?Third trimester ?0.43-2.91 09/03/2014 3:52 PM EDT 09/04/2014 12:37 AM EDT Narrative Resulting Agency Comment [id number] us Louise Washington CERTIFIED PEER SPECIALIST LABORATORY Final Result [facility] [address] [place] [address] documented in this encounter Visit Diagnoses Diagnosis Hypothyroidism due to acquired atrophy of thyroid documented in this encounter Care Teams Senior Health Physics Technician Relationship Specialty Start Date End Date Yobani Arredondo MD PCP - General Family Medicine 07/20/14 documented as of this encounter
--- OUTSIDE RECORDS SUMMARY | 2024-05-31 16:04 | XMS_ITS | Encounter Summary ---
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 Procedure Name Priority Date/Time Associated Diagnosis Comments BORRELIA BURGDORFERI AB (LYME), EIA WITH REFLEX IGG, IGM WB Routine 03/12/2014 3:22 PM EST Muscle pain ERYTHROCYTE SEDIMENTATION RATE (ESR) Routine 03/12/2014 3:22 PM EST Muscle pain CBC INCLUDES DIFFERENTIAL AND PLATELET COUNT Routine 03/12/2014 3:22 PM EST Loss of hair Muscle pain Loss of appetite Vomiting Hypomenorrhea PROLACTIN Routine 03/12/2014 3:22 PM EST Hyperprolactinemia Hypomenorrhea DHEA SULFATE Routine 03/12/2014 3:22 PM EST Loss of hair CREATINE KINASE (CK), SERUM Routine 03/12/2014 3:22 PM EST Muscle pain AMYLASE, SERUM Routine 03/12/2014 3:22 PM EST Vomiting HEPATIC FUNCTION PANEL (ALT,AST,ALK PH,BILI'S,TP,ALB) Routine 03/12/2014 3:22 PM EST Vomiting BASIC METABOLIC PANEL WITH (GFR) Routine 03/12/2014 3:22 PM EST Vomiting documented in this encounter Results * Due to [place] state law, this organization might not be sharing negative HIV tests. * DHEA SULFATE (03/12/2014 3:22 PM EST) DHEA SULFATE 352 18 - 391 mcg/dL [facility] Comment:{DHEA SULFATE {[id number]) 03/12/2014 3:22 PM EST 03/13/2014 12:21 AM EST Narrative [facility] - 03/13/2014 6:39 PM EST Report Comments: PLEASE DO TSH PREVIOUSLY BOOKED Resulting Agency Comment [id number] us Stormy Canas MD LABORATORY Final Result Performing Organization Address [facility] de Phone Number [facility] [address] [place] [address] * CREATINE KINASE (CK), SERUM (03/12/2014 3:22 PM EST) CPK 43 29 - 143 U/L [facility] Comment:{CREATINE KINASE, TO SANAM {[id number]) 03/12/2014 3:22 PM EST 03/13/2014 12:21 AM EST Narrative [facility] - 03/13/2014 3:57 AM EST Report Comments: PLEASE DO TSH PREVIOUSLY BOOKED Resulting Agency Comment [id number] us Stormy Canas MD LAB SAME DAY RESULT Final Resul t Performing Organization Address [facility] de Phone Number [facility] [address] [place] [address] * BORRELIA BURGDORFERI AB (LYME), EIA WITH REFLEX IGG, IGM WB (03/12/2014 3:22 PM EST) Borrelia burgdorferi Ab < OR = 0.90 index [facility] Comment: {LYME AB SCREEN {[id number]) ? Index ? Interpretation ? ----- ? [...] the period when erythema migrans is apparent. 03/12/2014 3:22 PM EST 03/13/2014 12:21 AM EST Narrative [facility] - 03/13/2014 10:58 PM EST Report Comments: PLEASE DO TSH PREVIOUSLY BOOKED Resulting Agency Comment [id number] Stormy Canas MD LABORATORY Final Result Performing Organization Address City/State/[facility] Co de Phone Number [facility] [address] [place] [address] * ERYTHROCYTE SEDIMENTATION RATE (ESR), HAN (03/12/2014 3:22 PM EST) Sedimentation Rate Tedegren (ESR) 6 < OR = 20 mm/h [facility] Comment:{SED RATE BY YOSEPH SHORT {[id number]) 03/12/2014 3:22 PM EST 03/13/2014 12:21 AM EST Narrative [facility] - 03/13/2014 4:25 AM EST Report Comments: PLEASE DO TSH PREVIOUSLY BOOKED Resulting Agency Comment [id number] us Stormy Canas MD LAB SAME DAY RESULT Final Resul t [facility] [address] [place] [address] * AMYLASE, SERUM (03/12/2014 3:22 PM EST) Amylase 40 21 - 101 U/L [facility] Comment:{AMYLASE {[id number]) 03/12/2014 3:22 PM EST 03/13/2014 12:21 AM EST Narrative [facility] - 03/13/2014 3:57 AM EST Report Comments: PLEASE DO TSH PREVIOUSLY BOOKED Resulting Agency Comment [id number] us Stormy Canas MD LAB SAME DAY RESULT Final Resul t Performing Organization Address City/[facility] Co de Phone Number [facility] [address] [place] [address] * HEPATIC FUNCTION PANEL (03/12/2014 3:22 PM EST) Protein Total (Serum) 7.4 6.1 - 8.1 g/dL [facility] Comment:{PROTEIN, TOTAL {[id number]) Albumin 4.5 3.6 - 5.1 g/dL [facility] Comment:{ALBUMIN {[id number]) Globulin 2.9 1.9 - 3.7 g/dL (calc) [facility] Comment:{GLOBULIN {[id number]) Albumin/Globulin 1.6 1.0 - 2.5 (calc) [facility] Comment:{ALBUMIN/GLOBULIN RA VINAYAK {[id number]) Bilirubin Total 0.6 0.2 - 1.2 mg/dL [facility] Comment:{BILIRUBIN, TOTAL {[id number]) Bilirubin Direct 0.1 < OR = 0.2 mg/dL [facility] Comment:{BILIRUBIN, DIRECT { [id number]) Bilirubin Indirect 0.5 0.2 - 1.2 mg/dL (calc) [facility] Comment:{BILIRUBIN, INDIRECT {[id number]) Alkaline phosphatase 68 33 - 115 U/L [facility] Comment:{ALKALINE PHOSPHATAS E {[id number]) AST (SGOT) 11 10 - 30 U/L [facility] Comment:{AST {[id number]) ALT (SGPT) 6 6 - 29 U/L [facility] Comment:{ALT {[id number]) 03/12/2014 3:22 PM EST 03/13/2014 12:21 AM EST Narrative [facility] - 03/13/2014 3:57 AM EST Report Comments: PLEASE DO TSH PREVIOUSLY BOOKED Resulting Agency Comment [id number] us Stormy Canas MD LABORATORY Final Result [facility] [address] [place] [address] * BASIC METABOLIC PANEL WITH (GFR) (03/12/2014 3:22 PM EST) Glucose 78 65 - 99 mg/dL [facility] Comment: {GLUCOSE {[id number]) ? Fasting reference interval Urea Nitrogen Blood (BUN) 8 7 - 25 mg/dL [facility] Comment:{UREA NITROGEN (BUN) {[id number]) Creatinine 0.68 0.50 - 1.10 mg/dL [facility] Comment:{CREATININE {[id number]) GFR 122 > OR = 60 mL/min/1. 73m2 [facility] Comment:{eGFR NON-AFR. AMERI CAN {[id number]) GFR () 142 > OR = 60 mL/min/1. 73m2 [facility] Comment:{eGFR AMERIC AN {[id number]) BUN/Creatinine Ratio NOT APPLICABLE (calc) [facility] Comment:{BUN/CREATININE RATI O {[id number]) Sodium 139 135 - 146 mmol/L [facility] Comment:{SODIUM {[id number]) Potassium 4.1 3.5 - 5.3 mmol/L [facility] Comment:{POTASSIUM {[id number]) Chloride 102 98 - 110 mmol/L [facility] Comment:{CHLORIDE {[id number]) Carbon dioxide 25 19 - 30 mmol/L [facility] Comment:{CARBON DIOXIDE {[id number]) Calcium 9.7 8.6 - 10.2 mg/dL [facility] Comment:{CALCIUM {[id number]) 03/12/2014 3:22 PM EST 03/13/2014 12:21 AM EST Narrative [facility] - 03/13/2014 3:57 AM EST Please note that this estimated GFR does [...] with more precise needs for GFR calculation. Report Comments: PLEASE DO TSH PREVIOUSLY BOOKED Resulting Agency Comment [id number] Stormy Canas MD LABORATORY Final Result [facility] [address] [place] [address] * (ABNORMAL) CBC INCLUDES DIFFERENTIAL AND PLATELET COUNT (03/12/2014 3:22 PM EST) WBC 12.6(H) 3.8 - 10.8 Thousand/ uL [facility] Comment:{WHITE BLOOD CELL CO UNT {[id number]) RBC 4.84 3.80 - 5.10 Million/u L [facility] Comment:{RED BLOOD CELL COUN T {[id number]) Hemoglobin 14.2 11.7 - 15.5 g/dL [facility] Comment:{HEMOGLOBIN {[id number]) Hematocrit 44.4 35.0 - 45.0 % [facility] Comment:{HEMATOCRIT {[id number]) MCV 91.8 80.0 - 100.0 fL [facility] Comment:{MCV {[id number]) MCH 29.4 27.0 - 33.0 pg [facility] Comment:{MCH {[id number]) MCHC 32.0 32.0 - 36.0 g/dL [facility] Comment:{MCHC {[id number]) RDW 14.3 11.0 - 15.0 % [facility] Comment:{RDW {[id number]) PLT 287 140 - 400 Thousand/ uL [facility] Comment:{PLATELET COUNT {[id number]) MPV 8.7 7.5 - 11.5 fL [facility] Comment:{MPV {[id number]) Neutrophils # 8946(H) 1500 - 7800 cells/uL [facility] Comment:{ABSOLUTE NEUTROPHIL S {[id number]) Lymphocytes # 2835 850 - 3900 cells/uL [facility] Comment:{ABSOLUTE LYMPHOCYTE S {[id number]) Monocytes # 718 200 - 950 cells/uL [facility] Comment:{ABSOLUTE MONOCYTES {[id number]) Eosinophils # 76 15 - 500 cells/uL [facility] Comment:{ABSOLUTE EOSINOPHIL S {[id number]) Basophils # 25 0 - 200 cells/uL [facility] Comment:{ABSOLUTE BASOPHILS {[id number]) Neutrophils % 71.0 % [facility] Comment:{NEUTROPHILS {[id number]) Lymphocytes % 22.5 % [facility] Comment:{LYMPHOCYTES {[id number]) Monocytes % 5.7 % [facility] Comment:{MONOCYTES {[id number]) Eosinophils % 0.6 % [facility] Comment:{EOSINOPHILS {[id number]) Basophils % 0.2 % [facility] Comment:{BASOPHILS {[id number]) 03/12/2014 3:22 PM EST 03/13/2014 12:21 AM EST Narrative [facility] - 03/13/2014 1:54 AM EST Report Comments: PLEASE DO TSH PREVIOUSLY BOOKED Resulting Agency Comment [id number] us Stormy Canas MD LAB SAME DAY RESULT Final Resul t [facility] [address] [place] [address] * PROLACTIN (03/12/2014 3:22 PM EST) Prolactin 6.7 ng/mL [facility] Comment: {PROLACTIN {[id number]) ?Reference Range Females ?Non- ?3.0-30.0 ? 10.0-209.0 ?Postmenopausal ?2.0-20.0 03/12/2014 3:22 PM EST 03/13/2014 12:21 AM EST Narrative [facility] - 03/13/2014 5:06 AM EST Report Comments: PLEASE DO TSH PREVIOUSLY BOOKED Resulting Agency Comment [id number] us Stormy Canas MD LAB SAME DAY RESULT Final Resul t [facility] [address] [place] [address] documented in this encounter Visit Diagnoses Diagnosis Hyperprolactinemia (HHS) Other and unspecified anterior pituitary hyperfunction Hypomenorrhea Scanty or infrequent menstruation Loss of hair Alopecia, unspecified Muscle pain Mylagia and myositis, unspecified Loss of appetite Anorexia Vomiting Vomiting alone documented in this encounter Care Teams Clinical Associate Relationship Specialty Start Date End Date Erika Lopez MD PCP - General 04/22/13 03/12/14 Bart Cortez MD PCP - General Internal Medicine 03/13/14 07/19/14 Yobani Arredondo MD PCP - General Family Medicine 07/20/14 documented as of this encounter
== END 2024-05-31 14:21 | disposition home or self-care (01) ==
LOC: HO.HMCH 13:38
PROVIDERS: PCP Physician Assistant; Visit Provider Physician Assistant
DX: Z00.00 Encounter for general adult medical examination without abnormal findings (principal); F31.32 Bipolar disorder, current episode depressed, moderate; E66.811 Obesity, class 1; Z68.34 Body mass index [BMI] 34.0-34.9, adult; E03.9 Hypothyroidism, unspecified; N76.1 Subacute and chronic vaginitis; I10 Essential (primary) hypertension

== ENCOUNTER 2024-06-20 14:03 | Outpatient (REF) | payer OTHER, SELFPAY ==
[2024-06-20 15:28] LABS: Hematocrit 41.9 % (37.0-47.0); Hemoglobin 13.3 g/dl (12.0-16.0); Mean Corpuscular HGB Conc 31.7 g/dl (31.0-35.0); Mean Corpuscular Hemoglobin 26.1 pg (27.0-33.0); Mean Corpuscular Volume 82.2 fL (80.0-98.0); Mean Platelet Volume 10.2 fL (9.4-12.3); Platelet Count 322 X10*3/uL (160-400); Red Cell Distribution Width 15.6 % (11.0-16.0); White Blood Count 11.6 X10*3/uL (4.8-10.8)
--- OUTSIDE RECORDS SUMMARY | 2024-06-20 16:50 | XMS_ITS | Encounter Summary ---
Author Organization [facility] Address [address] [place] [address] Care Team Providers Care Insurance Coder Name Role Phone Erika Lopez MD Primary Care Provider Lubna Bart Lopez MD Primary Care Provider + [phone] Yobani Arredondo MD Primary Care Provider [phone] Encounter Details Date Type Department Care Team (Late st Contact Info) Description 08/29/2013 Orders Only [facility] Internal Medicine [address] [place] [address] Erika Lopez MD Social History Tobacco Use [...] this encounter Procedures * Due to [place] Pro.com law, this organization might not be sharing negative HIV tests. Procedure Name Priority Date/Time Associated Diagnosis Comments THYROID PEROXIDASEANTIBODIES Routine 08/29/2013 5:13 PM EDT Hypothyroidism T3 (TRIIODOTHYRONINE), TOTAL, SERUM Routine 08/29/2013 5:13 PM EDT Hypothyroidism TSH, 3RD GENERATION Routine 08/29/2013 5 :13 PM EDT Hypothyroidism T4, FREE, SERUM Routine 08/29/2013 5:13 PM EDT Hypothyroidism documented in this encounter Results * Due to [place] state law, this organization might not be sharing negative HIV tests. * T3 (TRIIODOTHYRONINE), TOTAL, SERUM (08/29/2013 5:13 PM EDT) T3 Total 92 76 - 181 ng/dL [facility] Comment:{T3, TOTAL {[id number]) 08/29/2013 5:13 PM EDT 08/29/2013 11:59 PM EDT Narrative Resulting Agency Comment [id number] us Erika Lopez MD LABORATORY Final Resu lt [facility] [address] [place] [address] * T4, FREE, SERUM (08/29/2013 5:13 PM EDT) FT4 1.0 0.8 - 1.8 ng/dL [facility] Comment:{T4, FREE {[id number]) 08/29/2013 5:13 PM EDT 08/29/2013 11:59 PM EDT Narrative Resulting Agency Comment [id number] us Erika Lopez MD LABORATORY Final Resu lt [facility] [address] [place] [address] * THYROID PEROXIDASEANTIBODIES (08/29/2013 5:13 PM EDT) Thyroperoxidase Ab 1 <9 IU/mL Q [facility] Comment:{THYROID PEROXIDASE ANTIBODIES {[id number]) 08/29/2013 5:13 PM EDT 08/29/2013 11:59 PM EDT Narrative Resulting Agency Comment [id number] us Erika Lopez MD LABORATORY Final Resu lt Performing Organization Address [facility] de Phone Number [facility] [address] [place] [address] * TSH, 3RD GENERATION (08/29/2013 5:13 PM EDT) TSH 1.62 mIU/L [facility] Comment: {TSH {[id number]) ?Reference Range ?> or = 20 Years ??0.40-4.50 ? Ranges ?First trimester ?0.26-2.66 ?Second trimester ?? 0.55-2.73 ?Third trimester ?0.43-2.91 08/29/2013 5:13 PM EDT 08/29/2013 11:59 PM EDT Narrative Resulting Agency Comment [id number] Erika Lopez MD LABORATORY Final Resu lt Performing Organization Address [facility] de Phone Number [facility] [address] [place] [address] documented in this encounter Visit Diagnoses Diagnosis Hypothyroidism Unspecified hypothyroidism documented in this encounter Care Teams Insurance Coder Relationship Specialty Start Date End Date Erika Lopez MD PCP - General 04/22/13 03/12/14 Bart Cortez MD PCP - General Internal Medicine 03/13/14 07/19/14 Yobani Arredondo MD PCP - General Family Medicine 07/20/14 documented as of this encounter
--- OUTSIDE RECORDS SUMMARY | 2024-06-20 16:50 | XMS_ITS | Encounter Summary ---
Author Organization [facility] Address [address] [place] [address] Care Team Providers Care Quality Liaison Name Role Phone Erika Lopez MD Primary Care Provider Lubna Bart Lopez MD Primary Care Provider + [phone] Yobani Arredondo MD Primary Care Provider [phone] Encounter Details Date Type Department Care Team (Late st Contact Info) Description 08/12/2013 Orders Only [facility] Internal Medicine [address] [place] [address] Erika Lopez MD Social History Tobacco Use [...] [facility] Comment:{WHITE BLOOD CELL CO UNT {[id number]) RBC 4.71 3.80 - 5.10 Million/u L [facility] Comment:{RED BLOOD CELL COUN T {[id number]) Hemoglobin 13.8 11.7 - 15.5 g/dL [facility] Comment:{HEMOGLOBIN {[id number]) Hematocrit 42.6 35.0 - 45.0 % [facility] Comment:{HEMATOCRIT {[id number]) MCV 90.4 80.0 - 100.0 fL [facility] Comment:{MCV {[id number]) MCH 29.4 27.0 - 33.0 pg [facility] Comment:{MCH {[id number]) MCHC 32.5 32.0 - 36.0 g/dL [facility] Comment:{MCHC {[id number]) RDW 14.3 11.0 - 15.0 % [facility] Comment:{RDW {[id number]) PLT 307 140 - 400 Thousand/ uL [facility] Comment:{PLATELET COUNT {[id number]) MPV 8.8 7.5 - 11.5 fL [facility] Comment:{MPV {[id number]) Neutrophils # 9056(H) 1500 - 7800 cells/uL [facility] Comment:{ABSOLUTE NEUTROPHIL S {[id number]) Lymphocytes # 2967 850 - 3900 cells/uL [facility] Comment:{ABSOLUTE LYMPHOCYTE S {[id number]) Monocytes # 774 200 - 950 cells/uL [facility] Comment:{ABSOLUTE MONOCYTES {[id number]) Eosinophils # 90 15 - 500 cells/uL [facility] Comment:{ABSOLUTE EOSINOPHIL S {[id number]) Basophils # 13 0 - 200 cells/uL [facility] Comment:{ABSOLUTE BASOPHILS {[id number]) Neutrophils % 70.2 % [facility] Comment:{NEUTROPHILS {[id number]) Lymphocytes % 23.0 % [facility] Comment:{LYMPHOCYTES {[id number]) Monocytes % 6.0 % [facility] Comment:{MONOCYTES {[id number]) Eosinophils % 0.7 % [facility] Comment:{EOSINOPHILS {[id number]) Basophils % 0.1 % [facility] Comment:{BASOPHILS {[id number]) 08/12/2013 4:17 PM EDT 08/13/2013 12:45 AM EDT Narrative Resulting Agency Comment [id number] Erika Lopez MD LAB SAME DAY RESULT Final Result Performing Organization Address City/State/[facility] Co de Phone Number [facility] [address] [place] [address] documented in this encounter Visit Diagnoses Diagnosis Leukocytosis Leukocytosis, unspecified documented in this encounter Care Teams Quality Liaison Relationship Specialty Start Date End Date Erika Lopze MD PCP - General 04/22/13 03/12/14 Bart Cortez MD PCP - General Internal Medicine 03/13/14 07/19/14 Yobani Arredondo MD PCP - General Family Medicine 07/20/14 documented as of this encounter
--- OUTSIDE RECORDS SUMMARY | 2024-06-20 16:50 | XMS_ITS | Encounter Summary ---
Author Organization [facility] Address [address] [place] [address] Care Team Providers Care Administrative Resources Associate Name Role Phone Erika Lopez MD Primary Care Provider Lubna Bart Lopez MD Primary Care Provider + [phone] Yobani Arredondo MD Primary Care Provider [phone] Encounter Details Date Type Department Care Team (Late st Contact Info) Description 07/28/2013 Orders Only [facility] Internal Medicine [address] [place] [address] Erika Lopez MD Social History Tobacco Use [...] Prolactin 31.1(H) ng/mL [facility] Comment: {PROLACTIN {[id number]) ?Reference Range Females ?Non- ?3.0-30.0 ? 10.0-209.0 ?Postmenopausal ?2.0-20.0 07/28/2013 11:5 3 AM EDT 07/28/2013 9:55 PM EDT Narrative Resulting Agency Comment [id number] us Erika Lopez MD LAB SAME DAY RESULT Final Result [facility] [address] [place] [address] * (ABNORMAL) TSH, 3RD GENERATION (07/28/2013 11:53 AM EDT) TSH 4.85(H) mIU/L [facility] Comment: {TSH {[id number]) ?Reference Range ?> or = 20 Years ??0.40-4.50 ? Ranges ?First trimester ?0.26-2.66 ?Second trimester ?? 0.55-2.73 ?Third trimester ?0.43-2.91 07/28/2013 11:5 3 AM EDT 07/28/2013 9:55 PM EDT Narrative Resulting Agency Comment [id number] Erika Lopez MD LABORATORY Final Resu lt Performing Organization Address [facility] de Phone Number [facility] [address] [place] [id number] * HCG, (HUMAN CHORIONIC GONADOTROPIN), TOTAL, QUANTITATIVE (07/28/2013 11:53 AM EDT) HCG, Total, Quantitative <2 mIU/mL [facility] Comment: {HCG, TOTAL, QN {[id number]) Reference Range Non or premenopausal ?<5 Postmenopausal ? <10 Values from different assay methods may vary. The use of this assay to monitor or to diagnose patients with cancer or any condition unrelated to has not been cleared or approved by the FDA or the facilities maintenance assistant of the assay. 07/28/2013 11:5 3 AM EDT 07/28/2013 9:55 PM EDT Narrative Resulting Agency Comment [id number] Erika Lopez MD LAB SAME DAY RESULT Final Result Performing Organization Address [facility] Co de Phone Number [facility] [address] [place] [address] documented in this encounter Visit Diagnoses Diagnosis Irregular periods Irregular menstrual cycle documented in this encounter Care Teams Administrative Resources Associate Relationship Specialty Start Date End Date Erika Lopez MD PCP - General 04/22/13 03/12/14 Bart Cortez MD PCP - General Internal Medicine 03/13/14 07/19/14 Yobani Arredondo MD PCP - General Family Medicine 07/20/14 documented as of this encounter
--- OUTSIDE RECORDS SUMMARY | 2024-06-20 16:50 | XMS_ITS | Encounter Summary ---
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 Procedure Name Priority Date/Time Associated Diagnosis Comments THYROID STIMULATING HORMONE (TSH) WITH FREE T4 REFLEX, SERUM Routine 09/03/2014 3:52 PM EDT Hypothyroidism due to acquired atrophy of thyroid documented in this encounter Results * Due to [place] Rain law, this organization might not be sharing negative HIV tests. * THYROID STIMULATING HORMONE (TSH) WITH FREE T4 REFLEX, SERUM (09/03/2014 3:52 PM EDT) TSH 0.73 mIU/L [facility] Comment: {TSH W/REFLEX TO FT4 {[id number]) ?Reference Range ?> or = 20 Years ??0.40-4.50 ? Ranges ?First trimester ?0.26-2.66 ?Second trimester ?? 0.55-2.73 ?Third trimester ?0.43-2.91 09/03/2014 3:52 PM EDT 09/04/2014 12:37 AM EDT Narrative Resulting Agency Comment [id number] us Louise Washington HAND TACKER LABORATORY Final Result [facility] [address] [place] [address] documented in this encounter Visit Diagnoses Diagnosis Hypothyroidism due to acquired atrophy of thyroid documented in this encounter Care Teams Production Support Developer Relationship Specialty Start Date End Date Yobani Arrdeondo MD PCP - General Family Medicine 07/20/14 documented as of this encounter
--- OUTSIDE RECORDS SUMMARY | 2024-06-20 16:50 | XMS_ITS | Encounter Summary ---
Author Organization [facility] Address [address] [place] [address] Care Team Providers Care Assembler Movement Name Role Phone Erika Lopez MD Primary Care Provider Lubna Bart Lopez MD Primary Care Provider + [phone] Yobani Arredondo MD Primary Care Provider [phone] Encounter Details Date Type Department Care Team (Late st Contact Info) Description 08/04/2013 Orders Only [facility] [address] [place] [phone] Margarette Bailey PA [address] [place] [id number] Social History Tobacco Use Types Packs/Day Years [...] of this encounter Procedures * Due to [place] state law, this organization might not be [...] in this encounter Results * Due to [place] state law, this organization might not be sharing negative HIV tests. * (ABNORMAL) CBC INCLUDES DIFFERENTIAL AND PLATELET COUNT (08/04/2013 5:43 PM EDT) WBC 15.9(H) 3.8 - 10.8 Thousand/ uL [facility] Comment:{WHITE BLOOD CELL CO UNT {[id number]) RBC 5.01 3.80 - 5.10 Million/u L [facility] Comment:{RED BLOOD CELL COUN T {[id number]) Hemoglobin 14.2 11.7 - 15.5 g/dL [facility] Comment:{HEMOGLOBIN {[id number]) Hematocrit 44.4 35.0 - 45.0 % [facility] Comment:{HEMATOCRIT {[id number]) MCV 88.7 80.0 - 100.0 fL [facility] Comment:{MCV {[id number]) MCH 28.4 27.0 - 33.0 pg [facility] Comment:{MCH {[id number]) MCHC 32.0 32.0 - 36.0 g/dL [facility] Comment:{MCHC {[id number]) RDW 13.8 11.0 - 15.0 % [facility] Comment:{RDW {[id number]) PLT 354 140 - 400 Thousand/ uL [facility] Comment:{PLATELET COUNT {[id number]) MPV 7.5 7.5 - 11.5 fL [facility] Comment:{MPV {[id number]) Neutrophils # 27286(H) 1500 - 7800 cells/uL [facility] Comment:{ABSOLUTE NEUTROPHIL S {[id number]) Lymphocytes # 3530 850 - 3900 cells/uL [facility] Comment:{ABSOLUTE LYMPHOCYTE S {[id number]) Monocytes # 1034(H) 200 - 950 cells/uL [facility] Comment:{ABSOLUTE MONOCYTES {[id number]) Eosinophils # 95 15 - 500 cells/uL [facility] Comment:{ABSOLUTE EOSINOPHIL S {[id number]) Basophils # 80 0 - 200 cells/uL [facility] Comment:{ABSOLUTE BASOPHILS {[id number]) Neutrophils % 70.2 % [facility] Comment:{NEUTROPHILS {[id number]) Lymphocytes % 22.2 % [facility] Comment:{LYMPHOCYTES {[id number]) Monocytes % 6.5 % [facility] Comment:{MONOCYTES {[id number]) Eosinophils % 0.6 % [facility] Comment:{EOSINOPHILS {[id number]) Basophils % 0.5 % [facility] Comment:{BASOPHILS {[id number]) 08/04/2013 5:43 PM EDT 08/04/2013 5:47 PM EDT Narrative Resulting Agency Comment [id number] Margarette OKEEFE LAB SAME DAY RESULT Final Result [facility] [address] [place] [address] * BASIC METABOLIC PANEL WITH (GFR) (08/04/2013 5:43 PM EDT) Glucose 83 65 - 99 mg/dL [facility] Comment: {GLUCOSE {[id number]) ? Fasting reference interval Urea Nitrogen Blood (BUN) 10 7 - 25 mg/dL [facility] Comment:{UREA NITROGEN (BUN) {[id number]) Creatinine 0.75 0.50 - 1.10 mg/dL [facility] Comment:{CREATININE {[id number]) GFR 112 > OR = 60 mL/min/1. 73m2 [facility] Comment:{eGFR NON-AFR. AMERI CAN {[id number]) GFR () 129 > OR = 60 mL/min/1. 73m2 [facility] Comment:{eGFR AMERIC AN {[id number]) BUN/Creatinine Ratio NOT APPLICABLE 6 (calc) [facility] Comment:{BUN/CREATININE RATI O {[id number]) Sodium 137 135 - 146 mmol/L [facility] Comment:{SODIUM {[id number]) Potassium 3.7 3.5 - 5.3 mmol/L [facility] Comment:{POTASSIUM {[id number]) Chloride 104 98 - 110 mmol/L [facility] Comment:{CHLORIDE {[id number]) Carbon dioxide 25 19 - 30 mmol/L [facility] Comment:{CARBON DIOXIDE {[id number]) Calcium 9.6 8.6 - 10.2 mg/dL [facility] Comment:{CALCIUM {[id number]) 08/04/2013 5:43 PM EDT 08/04/2013 5:47 [...] needs for GFR calculation. Resulting Agency Comment [id number] us Margarette OKEEFE LABORATORY Final Result Performing Organization Address [facility] Co de Phone Number [facility] [address] [place] [address] * STREPTOCOCCUS, GROUP A CULTURE (08/04/2013 4:49 PM EDT) Pathologist [facility] Culture, Streptococci Group A, Throat SEE NOTE [facility] Comment: {STREPTOCOCCUS, GROUP A CULTURE {[id number]) ??STREPTOCOCCUS, GROUP A CULTURE ??MICRO NUMBER: ?[id number] ??TEST STATUS: ? FINAL ??SPECIMEN SOURCE: ?? THROAT ??SPECIMEN QUALITY: ??ADEQUATE ??RESULT: ?No beta hemolytic Streptococci isolated 08/04/2013 4:49 PM EDT 08/04/2013 5:01 PM EDT Narrative Resulting Agency Comment [id number] us Osmel Lozano MD LABORATORY Final Resul t Performing Organization Address City/[facility] Co de Phone Number [facility] [address] [place] [address] * CULTURE, URINE, ROUTINE (08/04/2013 4:49 PM EDT) Bacteria culture (Urine) SEE NOTE [facility] Comment: {CULTURE, URINE, ROUTINE {[id number]) ??CULTURE, URINE, ROUTINE ??MICRO NUMBER: ?[id number] ??TEST STATUS: ? FINAL ??SPECIMEN SOURCE: ?? URINE ??SPECIMEN QUALITY: ??ADEQUATE ??RESULT: ?No Growth 08/04/2013 4:49 PM EDT 08/04/2013 5:01 PM EDT Narrative Resulting Agency Comment [id number] us Osmel Lozano MD LABORATORY Final Resul t [facility] [address] [place] [address] * (ABNORMAL) URINALYSIS, MICROSCOPIC (08/04/2013 4:49 PM EDT) WBC (Urine) 0-5 < OR = 5 /HPF [facility] Comment:{WBC {[id number]) RBC (Urine Sed) 0-3 < OR = 3 /HPF [facility] Comment:{RBC {[id number]) Epithelial cells.squamous (Urine sed) 0-5 < OR = 5 /HPF [facility] Comment:{SQUAMOUS EPITHELIAL CELLS {[id number]) Bacteria (Urine) MODERATE(A) NONE SEEN /HPF [facility] Comment:{BACTERIA {[id number]) Service comment 01 MODERATE MUCOUS THREADS [facility] Comment:{COMMENTS {[id number]) Service comment 01 See Below [facility] Comment: {NOTE {[id number]) This urine was analyzed for the presence of WBC, RBC, bacteria, casts, and other formed elements. Only those elements seen were reported. 08/04/2013 4:49 PM EDT 08/04/2013 5:01 PM EDT Narrative Resulting Agency Comment [id number] us Osmel Lozano MD LAB SAME DAY RESULT Final R esult [facility] [address] [place] [address] documented in this encounter Visit Diagnoses Diagnosis Urinary tract infection Urinary tract infection, site not specified Sore throat Acute pharyngitis Viral gastroenteritis Intestinal infection due to other organism, not elsewhere classified documented in this encounter Care Teams Assembler Movement Relationship Specialty Start Date End Date Erika Lopez MD PCP - General 04/22/13 03/12/14 Bart Cortez MD PCP - General Internal Medicine 03/13/14 07/19/14 Yobani Arredondo MD PCP - General Family Medicine 07/20/14 documented as of this encounter
--- OUTSIDE RECORDS SUMMARY | 2024-06-20 16:50 | XMS_ITS | Encounter Summary ---
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 Co de Phone Number MUSE EKG SYSTEM * HCG, (HUMAN CHORIONIC GONADOTROPIN), TOTAL, QUANTITATIVE (12/19/2013 12:10 PM EDT) [facility] HCG, Total, Quantitative 2 mIU/mL [facility] Comment: {HCG, TOTAL, QN {[id number]) Reference Range Non or premenopausal ?<5 Postmenopausal ? <10 Values from different assay methods may vary. The use of this assay to monitor or to diagnose patients with cancer or any condition unrelated to has not been cleared or approved by the FDA or the electrical cad technician of the assay. 12/19/2013 12:1 0 PM EDT 12/20/2013 4:29 AM EDT Narrative Resulting Agency Comment [id number] Erika Lopez MD LAB SAME DAY RESULT Final Result Performing Organization Address [facility] de Phone Number [facility] [address] [place] [address] * HEPATIC FUNCTION PANEL (12/19/2013 12:10 PM EDT) Pathologist [facility] Protein Total (Serum) 7.1 6.1 - 8.1 g/dL [facility] Comment:{PROTEIN, TOTAL {[id number]) Albumin 4.1 3.6 - 5.1 g/dL [facility] Comment:{ALBUMIN {[id number]) Globulin 3.0 1.9 - 3.7 g/dL (calc) [facility] Comment:{GLOBULIN {[id number]) Albumin/Globulin 1.4 1.0 - 2.5 (calc) [facility] Comment:{ALBUMIN/GLOBULIN RA VINAYAK {[id number]) Bilirubin Total 0.5 0.2 - 1.2 mg/dL [facility] Comment:{BILIRUBIN, TOTAL {[id number]) Bilirubin Direct 0.1 < OR = 0.2 mg/dL [facility] Comment:{BILIRUBIN, DIRECT { [id number]) Bilirubin Indirect 0.4 0.2 - 1.2 mg/dL (calc) [facility] Comment:{BILIRUBIN, INDIRECT {[id number]) Alkaline phosphatase 64 33 - 115 U/L [facility] Comment:{ALKALINE PHOSPHATAS E {[id number]) AST (SGOT) 13 10 - 30 U/L [facility] Comment:{AST {[id number]) ALT (SGPT) 6 6 - 29 U/L [facility] Comment:{ALT {[id number]) 12/19/2013 12:1 0 PM EDT 12/20/2013 4:29 AM EDT Narrative Resulting Agency Comment [id number] us Erika Lopez MD LABORATORY Final Resu lt [facility] [address] [place] [address] * (ABNORMAL) TSH, 3RD GENERATION (12/19/2013 12:10 PM EDT) TSH 4.67(H) mIU/L [facility] Comment: {TSH {[id number]) ?Reference Range ?> or = 20 Years ??0.40-4.50 ? Ranges ?First trimester ?0.26-2.66 ?Second trimester ?? 0.55-2.73 ?Third trimester ?0.43-2.91 12/19/2013 12:1 0 PM EDT 12/20/2013 4:29 AM EDT Narrative Resulting Agency Comment [id number] us Erika Lopez MD LABORATORY Final Resu lt [facility] [address] [place] [address] * BASIC METABOLIC PANEL WITH (GFR) (12/19/2013 12:10 PM EDT) Glucose 86 65 - 99 mg/dL [facility] Comment: {GLUCOSE {[id number]) ? Fasting reference interval Urea Nitrogen Blood (BUN) 10 7 - 25 mg/dL [facility] Comment:{UREA NITROGEN (BUN) {[id number]) Creatinine 0.72 0.50 - 1.10 mg/dL [facility] Comment:{CREATININE {[id number]) GFR 117 > OR = 60 mL/min/1. 73m2 [facility] Comment:{eGFR NON-AFR. AMERI CAN {[id number]) GFR () 136 > OR = 60 mL/min/1. 73m2 [facility] Comment:{eGFR AMERIC AN {[id number]) BUN/Creatinine Ratio NOT APPLICABLE 6 - 22 (calc) [facility] Comment:{BUN/CREATININE RATI O {[id number]) Sodium 141 135 - 146 mmol/L [facility] Comment:{SODIUM {[id number]) Potassium 3.6 3.5 - 5.3 mmol/L [facility] Comment:{POTASSIUM {[id number]) Chloride 106 98 - 110 mmol/L [facility] Comment:{CHLORIDE {[id number]) Carbon dioxide 24 19 - 30 mmol/L [facility] Comment:{CARBON DIOXIDE {[id number]) Calcium 9.4 8.6 - 10.2 mg/dL [facility] Comment:{CALCIUM {[id number]) 12/19/2013 12:1 0 PM EDT 12/20/2013 [...] needs for GFR calculation. Resulting Agency Comment [id number] us Erika Lopez MD LABORATORY Final Resu lt [facility] [address] [place] [address] * (ABNORMAL) CBC INCLUDES DIFFERENTIAL AND PLATELET COUNT (12/19/2013 12:10 PM EDT) WBC 10.6 3.8 - 10.8 Thousand/ uL [facility] Comment:{WHITE BLOOD CELL CO UNT {[id number]) RBC 4.69 3.80 - 5.10 Million/u L [facility] Comment:{RED BLOOD CELL COUN T {[id number]) Hemoglobin 13.6 11.7 - 15.5 g/dL [facility] Comment:{HEMOGLOBIN {[id number]) Hematocrit 43.4 35.0 - 45.0 % [facility] Comment:{HEMATOCRIT {[id number]) MCV 92.5 80.0 - 100.0 fL [facility] Comment:{MCV {[id number]) MCH 29.1 27.0 - 33.0 pg [facility] Comment:{MCH {[id number]) MCHC 31.5(L) 32.0 - 36.0 g/dL [facility] Comment:{MCHC {[id number]) RDW 14.3 11.0 - 15.0 % [facility] Comment:{RDW {[id number]) PLT 323 140 - 400 Thousand/ uL [facility] Comment:{PLATELET COUNT {[id number]) MPV 9.0 7.5 - 11.5 fL [facility] Comment:{MPV {[id number]) Neutrophils # 7187 1500 - 7800 cells/uL [facility] Comment:{ABSOLUTE NEUTROPHIL S {[id number]) Lymphocytes # 2661 850 - 3900 cells/uL [facility] Comment:{ABSOLUTE LYMPHOCYTE S {[id number]) Monocytes # 594 200 - 950 cells/uL [facility] Comment:{ABSOLUTE MONOCYTES {[id number]) Eosinophils # 117 15 - 500 cells/uL [facility] Comment:{ABSOLUTE EOSINOPHIL S {[id number]) Basophils # 42 0 - 200 cells/uL [facility] Comment:{ABSOLUTE BASOPHILS {[id number]) Neutrophils % 67.8 % [facility] Comment:{NEUTROPHILS {[id number]) Lymphocytes % 25.1 % [facility] Comment:{LYMPHOCYTES {[id number]) Monocytes % 5.6 % [facility] Comment:{MONOCYTES {[id number]) Eosinophils % 1.1 % [facility] Comment:{EOSINOPHILS {[id number]) Basophils % 0.4 % [facility] Comment:{BASOPHILS {[id number]) 12/19/2013 12:1 0 PM EDT 12/20/2013 4:29 AM EDT Narrative Resulting Agency Comment [id number] Erika Lopez MD LAB SAME DAY RESULT Final Result [facility] [address] [place] [address] documented in this encounter Visit Diagnoses Diagnosis Syncope Syncope and collapse documented in this encounter Care Teams Accounting Systems Analyst Relationship Specialty Start Date End Date Erika Lopez MD PCP - General 04/22/13 03/12/14 Bart Cortez MD PCP - General Internal Medicine 03/13/14 07/19/14 Yobani Arredondo MD PCP - General Family Medicine 07/20/14 documented as of this encounter
--- OUTSIDE RECORDS SUMMARY | 2024-06-20 16:50 | XMS_ITS | Clinical Summary ---
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
--- OUTSIDE RECORDS SUMMARY | 2024-06-20 16:50 | XMS_ITS | Encounter Summary ---
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 Procedure Name Priority Date/Time Associated Diagnosis Comments THYROID STIMULATING HORMONE (TSH) WITH FREE T4 REFLEX, SERUM Routine 03/12/2014 3:22 PM EST Hypothyroidism documented in this encounter Results * Due to [employer] law, this organization might not be sharing negative HIV tests. * THYROID STIMULATING HORMONE (TSH) WITH FREE T4 REFLEX, SERUM (03/12/2014 3:22 PM EST) TSH 0.97 mIU/L [facility] Comment: {TSH W/REFLEX TO FT4 {[id number]) ?Reference Range ?> or = 20 Years ??0.40-4.50 ? Ranges ?First trimester ?0.26-2.66 ?Second trimester ?? 0.55-2.73 ?Third trimester ?0.43-2.91 03/12/2014 3:2 2 PM EST 03/13/2014 12:22 AM EST Narrative Resulting Agency Comment [id number] us Erika Lopez MD LABORATORY Final Resu lt Performing Organization Address City/State/[facility] Co de Phone Number [facility] [address] [place] [address] documented in this encounter Visit Diagnoses Diagnosis Hypothyroidism Unspecified hypothyroidism documented in this encounter Care Teams Statistical Secretary Relationship Specialty Start Date End Date Erika Lopez MD PCP - General 04/22/13 03/12/14 Bart Cortez MD PCP - General Internal Medicine 03/13/14 07/19/14 Yobani Arredondo MD PCP - General Family Medicine 07/20/14 documented as of this encounter
--- OUTSIDE RECORDS SUMMARY | 2024-06-20 16:50 | XMS_ITS | Encounter Summary ---
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 * DHEA SULFATE (03/12/2014 3:22 PM EST) DHEA SULFATE 352 18 - 391 mcg/dL [facility] Comment:{DHEA SULFATE {[id number]) 03/12/2014 3:22 PM EST 03/13/2014 12:21 AM EST Narrative [facility] - 03/13/2014 6:39 PM EST Report Comments: PLEASE DO TSH PREVIOUSLY BOOKED Resulting Agency Comment [id number] us Stormy Canas MD LABORATORY Final Result Performing Organization Address [facility] de Phone Number [facility] [address] [place] [address] * CREATINE KINASE (CK), SERUM (03/12/2014 3:22 PM EST) CPK 43 29 - 143 U/L [facility] Comment:{CREATINE KINASE, TO SANAM {[id number]) 03/12/2014 3:22 PM EST 03/13/2014 12:21 AM EST Narrative [facility] - 03/13/2014 3:57 AM EST Report Comments: PLEASE DO TSH PREVIOUSLY BOOKED Resulting Agency Comment [id number] us Stormy Canas MD LAB SAME DAY RESULT Final Resul t Performing Organization Address [facility] de Phone Number [facility] [address] [place] [address] * BORRELIA BURGDORFERI AB (LYME), EIA WITH REFLEX IGG, IGM WB (03/12/2014 3:22 PM EST) Borrelia burgdorferi Ab < OR = 0.90 index [facility] Comment: {LYME AB SCREEN {[id number]) ? Index ? Interpretation ? ----- ? [...] PM EST 03/13/2014 12:21 AM EST Narrative [facility] - 03/13/2014 10:58 PM EST Report Comments: PLEASE DO TSH PREVIOUSLY BOOKED Resulting Agency Comment [id number] Stormy Canas MD LABORATORY Final Result Performing Organization Address City/State/[facility] Co de Phone Number [facility] [address] [place] [address] * ERYTHROCYTE SEDIMENTATION RATE (ESR), HAN (03/12/2014 3:22 PM EST) Sedimentation Rate Tedegren (ESR) 6 < OR = 20 mm/h [facility] Comment:{SED RATE BY YOSEPH SHORT {[id number]) 03/12/2014 3:22 PM EST 03/13/2014 12:21 AM EST Narrative [facility] - 03/13/2014 4:25 AM EST Report Comments: PLEASE DO TSH PREVIOUSLY BOOKED Resulting Agency Comment [id number] Stormy Canas MD LAB SAME DAY RESULT Final Resul t [facility] [address] [place] [address] * AMYLASE, SERUM (03/12/2014 3:22 PM EST) Amylase 40 21 - 101 U/L [facility] Comment:{AMYLASE {[id number]) 03/12/2014 3:22 PM EST 03/13/2014 12:21 AM EST Narrative [facility] - 03/13/2014 3:57 AM EST Report Comments: PLEASE DO TSH PREVIOUSLY BOOKED Resulting Agency Comment [id number] Stormy Canas MD LAB SAME DAY RESULT Final Resul t Performing Organization Address City/[facility] Co de Phone Number [facility] [address] [place] [address] * HEPATIC FUNCTION PANEL (03/12/2014 3:22 PM EST) Protein Total (Serum) 7.4 6.1 - 8.1 g/dL [facility] Comment:{PROTEIN, TOTAL {[id number]) Albumin 4.5 3.6 - 5.1 g/dL [facility] Comment:{ALBUMIN {[id number]) Globulin 2.9 1.9 - 3.7 g/dL (calc) [facility] Comment:{GLOBULIN {[id number]) Albumin/Globulin 1.6 1.0 - 2.5 (calc) [facility] Comment:{ALBUMIN/GLOBULIN RA VINAYAK {[id number]) Bilirubin Total 0.6 0.2 - 1.2 mg/dL [facility] Comment:{BILIRUBIN, TOTAL {[id number]) Bilirubin Direct 0.1 < OR = 0.2 mg/dL [facility] Comment:{BILIRUBIN, DIRECT { [id number]) Bilirubin Indirect 0.5 0.2 - 1.2 mg/dL (calc) [facility] Comment:{BILIRUBIN, INDIRECT {[id number]) Alkaline phosphatase 68 33 - 115 U/L [facility] Comment:{ALKALINE PHOSPHATAS E {[id number]) AST (SGOT) 11 10 - 30 U/L [facility] Comment:{AST {[id number]) ALT (SGPT) 6 6 - 29 U/L [facility] Comment:{ALT {[id number]) 03/12/2014 3:22 PM EST 03/13/2014 12:21 AM EST Narrative [facility] - 03/13/2014 3:57 AM EST Report Comments: PLEASE DO TSH PREVIOUSLY BOOKED Resulting Agency Comment [id number] us Stormy Canas MD LABORATORY Final Result [facility] [address] [place] [address] * BASIC METABOLIC PANEL WITH (GFR) (03/12/2014 3:22 PM EST) Glucose 78 65 - 99 mg/dL [facility] Comment: {GLUCOSE {[id number]) ? Fasting reference interval Urea Nitrogen Blood (BUN) 8 7 - 25 mg/dL [facility] Comment:{UREA NITROGEN (BUN) {[id number]) Creatinine 0.68 0.50 - 1.10 mg/dL [facility] Comment:{CREATININE {[id number]) GFR 122 > OR = 60 mL/min/1. 73m2 [facility] Comment:{eGFR NON-AFR. AMERI CAN {[id number]) GFR () 142 > OR = 60 mL/min/1. 73m2 [facility] Comment:{eGFR AMERIC AN {[id number]) BUN/Creatinine Ratio NOT APPLICABLE (calc) [facility] Comment:{BUN/CREATININE RATI O {[id number]) Sodium 139 135 - 146 mmol/L [facility] Comment:{SODIUM {[id number]) Potassium 4.1 3.5 - 5.3 mmol/L [facility] Comment:{POTASSIUM {[id number]) Chloride 102 98 - 110 mmol/L [facility] Comment:{CHLORIDE {[id number]) Carbon dioxide 25 19 - 30 mmol/L [facility] Comment:{CARBON DIOXIDE {[id number]) Calcium 9.7 8.6 - 10.2 mg/dL [facility] Comment:{CALCIUM {[id number]) 03/12/2014 3:22 PM EST 03/13/2014 12:21 [...] DO TSH PREVIOUSLY BOOKED Resulting Agency Comment [id number] Stormy Canas MD LABORATORY Final Result [facility] [address] [place] [address] * (ABNORMAL) CBC INCLUDES DIFFERENTIAL AND PLATELET COUNT (03/12/2014 3:22 PM EST) WBC 12.6(H) 3.8 - 10.8 Thousand/ uL [facility] Comment:{WHITE BLOOD CELL CO UNT {[id number]) RBC 4.84 3.80 - 5.10 Million/u L [facility] Comment:{RED BLOOD CELL COUN T {[id number]) Hemoglobin 14.2 11.7 - 15.5 g/dL [facility] Comment:{HEMOGLOBIN {[id number]) Hematocrit 44.4 35.0 - 45.0 % [facility] Comment:{HEMATOCRIT {[id number]) MCV 91.8 80.0 - 100.0 fL [facility] Comment:{MCV {[id number]) MCH 29.4 27.0 - 33.0 pg [facility] Comment:{MCH {[id number]) MCHC 32.0 32.0 - 36.0 g/dL [facility] Comment:{MCHC {[id number]) RDW 14.3 11.0 - 15.0 % [facility] Comment:{RDW {[id number]) PLT 287 140 - 400 Thousand/ uL [facility] Comment:{PLATELET COUNT {[id number]) MPV 8.7 7.5 - 11.5 fL [facility] Comment:{MPV {[id number]) Neutrophils # 8946(H) 1500 - 7800 cells/uL [facility] Comment:{ABSOLUTE NEUTROPHIL S {[id number]) Lymphocytes # 2835 850 - 3900 cells/uL [facility] Comment:{ABSOLUTE LYMPHOCYTE S {[id number]) Monocytes # 718 200 - 950 cells/uL [facility] Comment:{ABSOLUTE MONOCYTES {[id number]) Eosinophils # 76 15 - 500 cells/uL [facility] Comment:{ABSOLUTE EOSINOPHIL S {[id number]) Basophils # 25 0 - 200 cells/uL [facility] Comment:{ABSOLUTE BASOPHILS {[id number]) Neutrophils % 71.0 % [facility] Comment:{NEUTROPHILS {[id number]) Lymphocytes % 22.5 % [facility] Comment:{LYMPHOCYTES {[id number]) Monocytes % 5.7 % [facility] Comment:{MONOCYTES {[id number]) Eosinophils % 0.6 % [facility] Comment:{EOSINOPHILS {[id number]) Basophils % 0.2 % [facility] Comment:{BASOPHILS {[id number]) 03/12/2014 3:22 PM EST 03/13/2014 12:21 AM EST Narrative [facility] - 03/13/2014 1:54 AM EST Report Comments: PLEASE DO TSH PREVIOUSLY BOOKED Resulting Agency Comment [id number] us Stormy Canas MD LAB SAME DAY RESULT Final Resul t [facility] [address] [place] [address] * PROLACTIN (03/12/2014 3:22 PM EST) Prolactin 6.7 ng/mL [facility] Comment: {PROLACTIN {[id number]) ?Reference Range Females ?Non- ?3.0-30.0 ? 10.0-209.0 ?Postmenopausal ?2.0-20.0 03/12/2014 3:22 PM EST 03/13/2014 12:21 AM EST Narrative [facility] - 03/13/2014 5:06 AM EST Report Comments: PLEASE DO TSH PREVIOUSLY BOOKED Resulting Agency Comment [id number] us Stormy Canas MD LAB SAME DAY RESULT Final Resul t [facility] [address] [place] [address] documented in this encounter Visit Diagnoses Diagnosis Hyperprolactinemia (HHS) Other and unspecified anterior pituitary hyperfunction Hypomenorrhea Scanty or infrequent menstruation Loss of hair Alopecia, unspecified Muscle pain Mylagia and myositis, unspecified Loss of appetite Anorexia Vomiting Vomiting alone documented in this encounter Care Teams Extended Insurance Clerk Relationship Specialty Start Date End Date Erika Lopez MD PCP - General 04/22/13 03/12/14 Bart Cortez MD PCP - General Internal Medicine 03/13/14 07/19/14 Yobani Arredondo MD PCP - General Family Medicine 07/20/14 documented as of this encounter
--- OUTSIDE RECORDS SUMMARY | 2024-06-20 16:50 | XMS_ITS | Clinical Summary ---
Author Organization [facility] ity Address [address] [place] [address] Care Team Providers Care Furnace Liner Name Role Phone Unavailable Primary Care Provider [...]
--- OUTSIDE RECORDS SUMMARY | 2024-06-20 16:50 | XMS_ITS | Encounter Summary ---
Author Organization [facility] Address [address] [place] [address] Care Team Providers Care Preanalytics Team Lead Name Role Phone Erika Lopez MD Primary Care Provider Lubna Bart Lopez MD Primary Care Provider + [phone] Yobani Arredondo MD Primary Care Provider [phone] Encounter Details Date Type Department Care Team (Late st Contact Info) Description 06/30/2013 Orders Only [facility] [address] [place], [place] [phone] Dawood Marino MD [address] [place] [id number] Social History Tobacco Use Types Packs/Day Years [...] of this encounter Procedures * Due to [place] state law, this organization might not be [...] in this encounter Results * Due to [place] state law, this organization might not be sharing negative HIV tests. * WET PREP (06/30/2013 7:07 PM EDT) Specimen source [facility] Comment:{SOURCE: {[id number]) Microscopic observation NO CLUE CELLS SEEN [facility] Comment: {RESULT: {[id number]) NO FUNGAL ELEMENTS SEEN. NO TRICHOMONAS VAGINALIS SEEN. 06/30/2013 7:07 PM EDT 06/30/2013 7:12 PM EDT Narrative Resulting Agency Comment [id number] us Dawood Marino MD LAB SAME DAY RESULT Final Result Performing Organization Address [facility] Co de Phone Number [facility] [address] [place] [address] * BV/VAGINITIS PANELDNA PROBE (06/30/2013 7:07 PM EDT) Trichomonas vaginalis rRNA (Genital) NOT DETECTED NOT DETECTED [facility] Comment:{TRICHOMONAS: {[id number]) Gardnerella vaginalis rRNA (Genital) NOT DETECTED NOT DETECTED [facility] Comment:{GARDNERELLA: {[id number]) Christelle sp rRNA (Vag) NOT DETECTED NOT DETECTED [facility] Comment:{CHRISTELLE: {[id number]) 06/30/2013 7:07 PM EDT 06/30/2013 7:12 PM EDT Narrative Resulting Agency Comment [id number] us Dawood Marino MD LABORATORY Final Result Performing Organization Address [facility] Co de Phone Number [facility] [address] [place] [address] * CHLAMYDIA TRACHOMATIS/N. GONORRHOEAE (GC) RNA, TMA (APTIMA GENITAL SWAB) (06/30/2013 7:07 PM EDT) Chlamydia trachomatis rRNA NOT DETECTED NOT DETECTED [facility] Comment:{CHLAMYDIA TRACHOMAT IS RNA, TMA {[id number]) Neisseria Gonorrhoeae rRNA NOT DETECTED NOT DETECTED [facility] Comment:{NEISSERIA GONORRHOE AE RNA, TMA {[id number]) COMMENT SEE NOTE [facility] Comment: {COMMENT {[id number]) This test was performed using the APTIMA COMBO2 Assay ([employer] The analytical performance characteristics of this assay, when used to test SurePath specimens have been determined by [employer]. 06/30/2013 7:07 PM EDT 06/30/2013 7:12 PM EDT Narrative Resulting Agency Comment [id number] us Dawood Marino MD LABORATORY Final Result Performing Organization Address City/[facility]/ZIP Co de Phone Number [facility] [address] [place] [address] * HCG, TOTAL, QL (06/30/2013 5:57 PM EDT) Pathologist [facility] HCG, Qualitative (Screen) NEGATIVE [facility] Comment: {HCG, TOTAL, QL {[id number]) Reference Range Non-: Negative : ? Positive 06/30/2013 5:57 PM EDT 06/30/2013 6:02 PM EDT Narrative Resulting Agency Comment [id number] us Dawood Marino MD LAB SAME DAY RESULT Final Result [facility] [address] [place] [address] * CULTURE, URINE, ROUTINE (06/30/2013 5:28 PM EDT) Bacteria culture (Urine) SEE NOTE [facility] Comment: {CULTURE, URINE, ROUTINE {[id number]) ??CULTURE, URINE, ROUTINE ??MICRO NUMBER: ?[id number] ??TEST STATUS: ? FINAL ??SPECIMEN SOURCE: ?? URINE ??SPECIMEN QUALITY: ??ADEQUATE ??RESULT: ?Multiple organisms present, each less than 10,000 ? CFU/mL. These organisms, commonly found on ? external and internal genitalia, are considered ? to be colonizers. No further testing performed. 06/30/2013 5:28 PM EDT 06/30/2013 5:49 PM EDT Narrative Resulting Agency Comment [id number] us Tyler Brown MD LABORATORY Final Result [facility] [address] [place] [address] * (ABNORMAL) URINALYSIS, MICROSCOPIC (06/30/2013 5:28 PM EDT) WBC (Urine) 0-5 < OR = 5 /HPF [facility] Comment:{WBC {[id number]) RBC (Urine Sed) NONE SEEN < OR = 3 /HPF [facility] Comment:{RBC {[id number]) Epithelial cells.squamous (Urine sed) 0-5 < OR = 5 /HPF [facility] Comment:{SQUAMOUS EPITHELIAL CELLS {[id number]) Transitional cells (Urine sed) NONE SEEN < OR = 5 /HPF [facility] Comment:{TRANSITIONAL EPITHE LIAL CELLS {[id number]) Epithelial cells.renal (Urine sed) NONE SEEN < OR = 3 /HPF [facility] Comment:{RENAL EPITHELIAL CE LLS {[id number]) Bacteria (Urine) MANY(A) NONE SEEN /HPF [facility] Comment:{BACTERIA {[id number]) Yeast (Urine sed) NONE SEEN NONE SEEN /HPF [facility] Comment:{YEAST {[id number]) Service comment 01 MANY MUCOUS THREADS [facility] Comment:{COMMENTS {[id number]) Service comment 01 See Below [facility] Comment: {NOTE {[id number]) This urine was analyzed for the presence of WBC, RBC, bacteria, casts, and other formed elements. Only those elements seen were reported. 06/30/2013 5:28 PM EDT 06/30/2013 5:49 PM EDT Narrative Resulting Agency Comment [id number] us Tyler Brown MD LAB SAME DAY RESULT Final Re sult Performing Organization Address [facility] Co de Phone Number [facility] [address] [place] [address] * INFLUENZA A AND B ANTIGENDETECTION, EIA (06/30/2013 5:15 PM EDT) Specimen source NASAL [facility] Comment:{SOURCE: {[id number]) Influenza Virus A Ag NOT DETECTED NOT DETECTED [facility] Comment:{INFLUENZA A ANTIGEN {[id number]) Influenza virus B Ag (Naspopharynx ) NOT DETECTED NOT DETECTED [facility] Comment:{INFLUENZA B ANTIGEN {[id number]) 06/30/2013 5:15 PM EDT 06/30/2013 5:28 PM EDT Narrative Resulting Agency Comment [id number] us Dawood Marino MD LAB SAME DAY RESULT Final Result Performing Organization Address [facility] Co de Phone Number [facility] [address] [place] [address] * BORRELIA BURGDORFERI AB (LYME), EIA WITH REFLEX IGG, IGM WB (06/30/2013 5:15 PM EDT) Borrelia burgdorferi Ab < OR = 0.90 index [facility] Comment: {LYME AB SCREEN {[id number]) ? Index ? Interpretation ? ----- ? [...] 5:28 PM EDT Narrative Resulting Agency Comment [id number] Dawood Marino MD LABORATORY Final Result Performing Organization Address City/State/[facility] Co de Phone Number [facility] [address] [place] [address] * HEPATIC FUNCTION PANEL (06/30/2013 5:15 PM EDT) Protein Total (Serum) 6.4 6.1 - 8.1 g/dL [facility] Comment:{PROTEIN, TOTAL {[id number]) Albumin 4.0 3.6 - 5.1 g/dL [facility] Comment:{ALBUMIN {[id number]) Globulin 2.4 1.9 - 3.7 g/dL (calc) [facility] Comment:{GLOBULIN {[id number]) Albumin/Globulin 1.7 1.0 - 2.5 (calc) [facility] Comment:{ALBUMIN/GLOBULIN RA VINAYAK {[id number]) Bilirubin Total 0.4 0.2 - 1.2 mg/dL [facility] Comment:{BILIRUBIN, TOTAL {[id number]) Bilirubin Direct 0.1 < OR = 0.2 mg/dL [facility] Comment:{BILIRUBIN, DIRECT { [id number]) Bilirubin Indirect 0.3 0.2 - 1.2 mg/dL (calc) [facility] Comment:{BILIRUBIN, INDIRECT {[id number]) Alkaline phosphatase 62 33 - 115 U/L [facility] Comment:{ALKALINE PHOSPHATAS E {[id number]) AST (SGOT) 13 10 - 30 U/L [facility] Comment:{AST {[id number]) ALT (SGPT) 8 6 - 29 U/L [facility] Comment:{ALT {[id number]) 06/30/2013 5:15 PM EDT 06/30/2013 5:28 PM EDT Narrative Resulting Agency Comment [id number] Dawood Marino MD LABORATORY Final Result [facility] [address] [place] [address] * (ABNORMAL) CBC INCLUDES DIFFERENTIAL AND PLATELET COUNT (06/30/2013 5:15 PM EDT) WBC 10.6 3.8 - 10.8 Thousand/ uL [facility] Comment:{WHITE BLOOD CELL CO UNT {[id number]) RBC 4.73 3.80 - 5.10 Million/u L [facility] Comment:{RED BLOOD CELL COUN T {[id number]) Hemoglobin 13.2 11.7 - 15.5 g/dL [facility] Comment:{HEMOGLOBIN {[id number]) Hematocrit 41.7 35.0 - 45.0 % [facility] Comment:{HEMATOCRIT {[id number]) MCV 88.2 80.0 - 100.0 fL [facility] Comment:{MCV {[id number]) MCH 27.9 27.0 - 33.0 pg [facility] Comment:{MCH {[id number]) MCHC 31.6(L) 32.0 - 36.0 g/dL [facility] Comment:{MCHC {[id number]) RDW 14.1 11.0 - 15.0 % [facility] Comment:{RDW {[id number]) PLT 362 140 - 400 Thousand/ uL [facility] Comment:{PLATELET COUNT {[id number]) MPV 7.7 7.5 - 11.5 fL [facility] Comment:{MPV {[id number]) Neutrophils # 6604 1500 - 7800 cells/uL [facility] Comment:{ABSOLUTE NEUTROPHIL S {[id number]) Lymphocytes # 2968 850 - 3900 cells/uL [facility] Comment:{ABSOLUTE LYMPHOCYTE S {[id number]) Monocytes # 869 200 - 950 cells/uL [facility] Comment:{ABSOLUTE MONOCYTES {[id number]) Eosinophils # 106 15 - 500 cells/uL [facility] Comment:{ABSOLUTE EOSINOPHIL S {[id number]) Basophils # 53 0 - 200 cells/uL [facility] Comment:{ABSOLUTE BASOPHILS {[id number]) Neutrophils % 62.3 % [facility] Comment:{NEUTROPHILS {[id number]) Lymphocytes % 28.0 % [facility] Comment:{LYMPHOCYTES {[id number]) Monocytes % 8.2 % [facility] Comment:{MONOCYTES {[id number]) Eosinophils % 1.0 % [facility] Comment:{EOSINOPHILS {[id number]) Basophils % 0.5 % [facility] Comment:{BASOPHILS {[id number]) 06/30/2013 5:15 PM EDT 06/30/2013 5:28 PM EDT Narrative Resulting Agency Comment [id number] us Dawood Marino MD LAB SAME DAY RESULT Final Result [facility] [address] [place] [address] * BASIC METABOLIC PANEL WITH (GFR) (06/30/2013 5:15 PM EDT) Glucose 82 65 - 99 mg/dL [facility] Comment: {GLUCOSE {[id number]) ? Fasting reference interval Urea Nitrogen Blood (BUN) 10 7 - 25 mg/dL [facility] Comment:{UREA NITROGEN (BUN) {[id number]) Creatinine 0.71 0.50 - 1.10 mg/dL [facility] Comment:{CREATININE {[id number]) GFR 119 > OR = 60 mL/min/1. 73m2 [facility] Comment:{eGFR NON-AFR. AMERI CAN {[id number]) GFR () 138 > OR = 60 mL/min/1. 73m2 [facility] Comment:{eGFR AMERIC AN {[id number]) BUN/Creatinine Ratio NOT APPLICABLE 6 - (calc) [facility] Comment:{BUN/CREATININE RATI O {[id number]) Sodium 139 135 - 146 mmol/L [facility] Comment:{SODIUM {[id number]) Potassium 3.9 3.5 - 5.3 mmol/L [facility] Comment:{POTASSIUM {[id number]) Chloride 106 98 - 110 mmol/L [facility] Comment:{CHLORIDE {[id number]) Carbon dioxide 27 19 - 30 mmol/L [facility] Comment:{CARBON DIOXIDE {[id number]) Calcium 9.2 8.6 - 10.2 mg/dL [facility] Comment:{CALCIUM {[id number]) 06/30/2013 5:15 PM EDT 06/30/2013 5:28 [...] needs for GFR calculation. Resulting Agency Comment [id number] us Dawood Marino MD LABORATORY Final Result Performing Organization Address City/State/[facility] Co de Phone Number [facility] [address] [place] [address] documented in this encounter Visit Diagnoses Diagnosis Fever Fever, unspecified Left flank pain Abdominal pain, unspecified site Chronic abdominal pain Abdominal pain, unspecified site documented in this encounter Care Teams Preanalytics Team Lead Relationship Specialty Start Date End Date Erika Lopez MD PCP - General 04/22/13 03/12/14 Bart Cortez MD PCP - General Internal Medicine 03/13/14 07/19/14 Yobani Arredondo MD PCP - General Family Medicine 07/20/14 documented as of this encounter
[2024-06-20 17:38] LABS: Alanine Aminotransferase 17 U/L (0-31); Albumin Level 4.3 g/dL (3.5-5.0); Alkaline Phosphatase 82 U/L (39-117); Anion Gap 10 (12-20); Aspartate Amino Transferase 25 U/L (5-31); Bilirubin Total 0.4 mg/dL (0.0-1.0); Blood Urea Nitrogen 8 mg/dL (9-16); Calcium 9.2 mg/dL (8.4-10.2); Carbon Dioxide 24 mmol/L (22-29); Chloride 109 mmol/L (96-108); Estimated Glomerular Filt Rate > 60; Glucose Fasting 81 mg/dL (60-99); Potassium 3.4 mmol/L (3.3-5.1); Sodium 140 mmol/L (135-145); TSH reflex Free T4 3.11 uIU/mL (0.32-4.0); Total Protein 7.6 g/dL (6.5-8.0); Vitamin D 25-OH Total 9.4 ng/mL (>30)
== END 2024-06-20 14:04 | disposition home or self-care (01) ==
LOC: HO.LAB 14:03
PROVIDERS: PCP Physician Assistant; Visit Provider Physician Assistant
DX: E03.9 Hypothyroidism, unspecified (principal); R94.31 Abnormal electrocardiogram [ECG] [EKG]; R79.89 Other specified abnormal findings of blood chemistry
CPT/HCPCS: 36415; 80053; 82306; 84443; 85027

== ENCOUNTER 2024-08-08 08:30 | Outpatient (REF) | payer OTHER, SELFPAY ==
--- NOTE | ~2024-08-08 | XR_ITS ---
EXAMINATION: XR CHEST CLINICAL INFORMATION: J40 - Bronchitis, not specified as acute or chronic COMPARISON: None available. TECHNIQUE: 2 views of the chest were obtained. FINDINGS: The cardiac, hilar, and mediastinal contours are normal. Lungs demonstrate a subtle patchy opacity in the left midlung, suspicious for pneumonia. Lungs otherwise appear clear. There is no pneumothorax or pleural effusion. There is no focal osseous or soft tissue abnormality. XR/XR chest 2V IMPRESSION: Subtle patchy opacity left mid lung, suspicious for pneumonia. No effusions. Electronically signed by: Beltran Pride MD 08/08/2024 08:56 AM EDT
--- OUTSIDE RECORDS SUMMARY | 2024-08-08 08:43 | XMS_ITS | Encounter Summary ---
Author Organization [facility] Address [address] [place] [address] Care Team Providers Care Granite Cutter Apprentice Name Role Phone Erika Lopez MD Primary Care Provider Lubna Bart Lopez MD Primary Care Provider [phone] Yobani Arredondo MD Primary Care Provider [phone] Encounter Details Date Type Department Care Team (Late st Contact Info) Description 08/12/2013 Orders Only [facility] Internal Medicine [address] [place] [phone] Erika Lopez MD Social History Tobacco Use [...] [facility] Comment:{WHITE BLOOD CELL CO UNT {[id number]) RBC 4.71 3.80 - 5.10 Million/u L [facility] Comment:{RED BLOOD CELL COUN T {[id number]) Hemoglobin 13.8 11.7 - 15.5 g/dL [facility] Comment:{HEMOGLOBIN {[id number]) Hematocrit 42.6 35.0 - 45.0 % [facility] Comment:{HEMATOCRIT {[id number]) MCV 90.4 80.0 - 100.0 fL [facility] Comment:{MCV {[id number]) MCH 29.4 27.0 - 33.0 pg [facility] Comment:{MCH {[id number]) MCHC 32.5 32.0 - 36.0 g/dL [facility] Comment:{MCHC {[id number]) RDW 14.3 11.0 - 15.0 % [facility] Comment:{RDW {[id number]) PLT 307 140 - 400 Thousand/ uL [facility] Comment:{PLATELET COUNT {[id number]) MPV 8.8 7.5 - 11.5 fL [facility] Comment:{MPV {[id number]) Neutrophils # 9056(H) 1500 - 7800 cells/uL [facility] Comment:{ABSOLUTE NEUTROPHIL S {[id number]) Lymphocytes # 2967 850 - 3900 cells/uL [facility] Comment:{ABSOLUTE LYMPHOCYTE S {[id number]) Monocytes # 774 200 - 950 cells/uL [facility] Comment:{ABSOLUTE MONOCYTES {[id number]) Eosinophils # 90 15 - 500 cells/uL [facility] Comment:{ABSOLUTE EOSINOPHIL S {[id number]) Basophils # 13 0 - 200 cells/uL [facility] Comment:{ABSOLUTE BASOPHILS {[id number]) Neutrophils % 70.2 % [facility] Comment:{NEUTROPHILS {[id number]) Lymphocytes % 23.0 % [facility] Comment:{LYMPHOCYTES {[id number]) Monocytes % 6.0 % [facility] Comment:{MONOCYTES {[id number]) Eosinophils % 0.7 % [facility] Comment:{EOSINOPHILS {[id number]) Basophils % 0.1 % [facility] Comment:{BASOPHILS {[id number]) 08/12/2013 4:17 PM EDT 08/13/2013 12:45 AM EDT Narrative Resulting Agency Comment [id number] Erika Lopez MD LAB SAME DAY RESULT Final Result Performing Organization Address City/State/[place] Co de Phone Number [facility] [address] [place] [address] documented in this encounter Visit Diagnoses Diagnosis Leukocytosis Leukocytosis, unspecified documented in this encounter Care Teams Granite Cutter Apprentice Relationship Specialty Start Date End Date Erika Lopez MD PCP - General 04/22/13 03/12/14 Bart Cortez MD PCP - General Internal Medicine 03/13/14 07/19/14 Yobani Arredondo MD PCP - General Family Medicine 07/20/14 documented as of this encounter
--- OUTSIDE RECORDS SUMMARY | 2024-08-08 08:43 | XMS_ITS | Encounter Summary ---
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 Procedure Name Priority Date/Time Associated Diagnosis Comments THYROID STIMULATING HORMONE (TSH) WITH FREE T4 REFLEX, SERUM Routine 09/03/2014 3:52 PM EDT Hypothyroidism due to acquired atrophy of thyroid documented in this encounter Results * Due to [place] [employer] law, this organization might not be sharing negative HIV tests. * THYROID STIMULATING HORMONE (TSH) WITH FREE T4 REFLEX, SERUM (09/03/2014 3:52 PM EDT) TSH 0.73 mIU/L [facility] Comment: {TSH W/REFLEX TO FT4 {[id number]) ?Reference Range ?> or = 20 Years ??0.40-4.50 ? Ranges ?First trimester ?0.26-2.66 ?Second trimester ?? 0.55-2.73 ?Third trimester ?0.43-2.91 09/03/2014 3:52 PM EDT 09/04/2014 12:37 AM EDT Narrative Resulting Agency Comment [id number] us Louise Washington VICE PRESIDENT OF DEVELOPMENT LABORATORY Final Result [facility] [address] [place] [address] documented in this encounter Visit Diagnoses Diagnosis Hypothyroidism due to acquired atrophy of thyroid documented in this encounter Care Teams Chief General Pediatric Clinic Relationship Specialty Start Date End Date Yobani Arredondo MD PCP - General Family Medicine 07/20/14 documented as of this encounter
--- OUTSIDE RECORDS SUMMARY | 2024-08-08 08:43 | XMS_ITS | Encounter Summary ---
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 Not [...] of this encounter Procedures * Due to [place] [employer] law, this organization might not be sharing [...] in this encounter Results * Due to [employer] law, this organization might not be sharing [...] INBSKT RTG Final Result Performing Organization Address [facility] Co de Phone Number MUSE EKG SYSTEM * HCG, (HUMAN CHORIONIC GONADOTROPIN), TOTAL, QUANTITATIVE (12/19/2013 12:10 PM EDT) [facility] HCG, Total, Quantitative 2 mIU/mL [facility] Comment: {HCG, TOTAL, QN {[id number]) Reference Range Non or premenopausal ?<5 Postmenopausal ? <10 Values from different assay methods may vary. The use of this assay to monitor or to diagnose patients with cancer or any condition unrelated to has not been cleared or approved by the FDA or the basket maker of the assay. 12/19/2013 12:1 0 PM EDT 12/20/2013 4:29 AM EDT Narrative Resulting Agency Comment [id number] Erika Lopez MD LAB SAME DAY RESULT Final Result Performing Organization Address [facility] de Phone Number [facility] [address] [place] [address] * HEPATIC FUNCTION PANEL (12/19/2013 12:10 PM EDT) Pathologist [facility] Protein Total (Serum) 7.1 6.1 - 8.1 g/dL [facility] Comment:{PROTEIN, TOTAL {[id number]) Albumin 4.1 3.6 - 5.1 g/dL [facility] Comment:{ALBUMIN {[id number]) Globulin 3.0 1.9 - 3.7 g/dL (calc) [facility] Comment:{GLOBULIN {[id number]) Albumin/Globulin 1.4 1.0 - 2.5 (calc) [facility] Comment:{ALBUMIN/GLOBULIN RA VINAYAK {[id number]) Bilirubin Total 0.5 0.2 - 1.2 mg/dL [facility] Comment:{BILIRUBIN, TOTAL {[id number]) Bilirubin Direct 0.1 < OR = 0.2 mg/dL [facility] Comment:{BILIRUBIN, DIRECT { [id number]) Bilirubin Indirect 0.4 0.2 - 1.2 mg/dL (calc) [facility] Comment:{BILIRUBIN, INDIRECT {[id number]) Alkaline phosphatase 64 33 - 115 U/L [facility] Comment:{ALKALINE PHOSPHATAS E {[id number]) AST (SGOT) 13 10 - 30 U/L [facility] Comment:{AST {[id number]) ALT (SGPT) 6 6 - 29 U/L [facility] Comment:{ALT {[id number]) 12/19/2013 12:1 0 PM EDT 12/20/2013 4:29 AM EDT Narrative Resulting Agency Comment [id number] us Erika Lopez MD LABORATORY Final Resu lt [facility] [address] [place] [address] * (ABNORMAL) TSH, 3RD GENERATION (12/19/2013 12:10 PM EDT) TSH 4.67(H) mIU/L [facility] Comment: {TSH {[id number]) ?Reference Range ?> or = 20 Years ??0.40-4.50 ? Ranges ?First trimester ?0.26-2.66 ?Second trimester ?? 0.55-2.73 ?Third trimester ?0.43-2.91 12/19/2013 12:1 0 PM EDT 12/20/2013 4:29 AM EDT Narrative Resulting Agency Comment [id number] us Erika Lopez MD LABORATORY Final Resu lt [facility] [address] [place] [address] * BASIC METABOLIC PANEL WITH (GFR) (12/19/2013 12:10 PM EDT) Glucose 86 65 - 99 mg/dL [facility] Comment: {GLUCOSE {[id number]) ? Fasting reference interval Urea Nitrogen Blood (BUN) 10 7 - 25 mg/dL [facility] Comment:{UREA NITROGEN (BUN) {[id number]) Creatinine 0.72 0.50 - 1.10 mg/dL [facility] Comment:{CREATININE {[id number]) GFR 117 > OR = 60 mL/min/1. 73m2 [facility] Comment:{eGFR NON-AFR. AMERI CAN {[id number]) GFR () 136 > OR = 60 mL/min/1. 73m2 [facility] Comment:{eGFR AMERIC AN {[id number]) BUN/Creatinine Ratio NOT APPLICABLE 6 - 22 (calc) [facility] Comment:{BUN/CREATININE RATI O {[id number]) Sodium 141 135 - 146 mmol/L [facility] Comment:{SODIUM {[id number]) Potassium 3.6 3.5 - 5.3 mmol/L [facility] Comment:{POTASSIUM {[id number]) Chloride 106 98 - 110 mmol/L [facility] Comment:{CHLORIDE {[id number]) Carbon dioxide 24 19 - 30 mmol/L [facility] Comment:{CARBON DIOXIDE {[id number]) Calcium 9.4 8.6 - 10.2 mg/dL [facility] Comment:{CALCIUM {[id number]) 12/19/2013 12:1 0 PM EDT 12/20/2013 [...] needs for GFR calculation. Resulting Agency Comment [id number] us Erika Lopez MD LABORATORY Final Resu lt [facility] [address] [place] [address] * (ABNORMAL) CBC INCLUDES DIFFERENTIAL AND PLATELET COUNT (12/19/2013 12:10 PM EDT) WBC 10.6 3.8 - 10.8 Thousand/ uL [facility] Comment:{WHITE BLOOD CELL CO UNT {[id number]) RBC 4.69 3.80 - 5.10 Million/u L [facility] Comment:{RED BLOOD CELL COUN T {[id number]) Hemoglobin 13.6 11.7 - 15.5 g/dL [facility] Comment:{HEMOGLOBIN {[id number]) Hematocrit 43.4 35.0 - 45.0 % [facility] Comment:{HEMATOCRIT {[id number]) MCV 92.5 80.0 - 100.0 fL [facility] Comment:{MCV {[id number]) MCH 29.1 27.0 - 33.0 pg [facility] Comment:{MCH {[id number]) MCHC 31.5(L) 32.0 - 36.0 g/dL [facility] Comment:{MCHC {[id number]) RDW 14.3 11.0 - 15.0 % [facility] Comment:{RDW {[id number]) PLT 323 140 - 400 Thousand/ uL [facility] Comment:{PLATELET COUNT {[id number]) MPV 9.0 7.5 - 11.5 fL [facility] Comment:{MPV {[id number]) Neutrophils # 7187 1500 - 7800 cells/uL [facility] Comment:{ABSOLUTE NEUTROPHIL S {[id number]) Lymphocytes # 2661 850 - 3900 cells/uL [facility] Comment:{ABSOLUTE LYMPHOCYTE S {[id number]) Monocytes # 594 200 - 950 cells/uL [facility] Comment:{ABSOLUTE MONOCYTES {[id number]) Eosinophils # 117 15 - 500 cells/uL [facility] Comment:{ABSOLUTE EOSINOPHIL S {[id number]) Basophils # 42 0 - 200 cells/uL [facility] Comment:{ABSOLUTE BASOPHILS {[id number]) Neutrophils % 67.8 % [facility] Comment:{NEUTROPHILS {[id number]) Lymphocytes % 25.1 % [facility] Comment:{LYMPHOCYTES {[id number]) Monocytes % 5.6 % [facility] Comment:{MONOCYTES {[id number]) Eosinophils % 1.1 % [facility] Comment:{EOSINOPHILS {[id number]) Basophils % 0.4 % [facility] Comment:{BASOPHILS {[id number]) 12/19/2013 12:1 0 PM EDT 12/20/2013 4:29 AM EDT Narrative Resulting Agency Comment [id number] Erika Lopez MD LAB SAME DAY RESULT Final Result [facility] [address] [place] [address] documented in this encounter Visit Diagnoses Diagnosis Syncope Syncope and collapse documented in this encounter Care Teams Automatic Folder Seamer Relationship Specialty Start Date End Date Erika Lopez MD PCP - General 04/22/13 03/12/14 Bart Cortez MD PCP - General Internal Medicine 03/13/14 07/19/14 Yobani Arredondo MD PCP - General Family Medicine 07/20/14 documented as of this encounter
--- OUTSIDE RECORDS SUMMARY | 2024-08-08 08:43 | XMS_ITS | Encounter Summary ---
Author Organization [facility] Address [address] [place] [address] Care Team Providers Care Deputy Sheriff Custody Name Role Phone Erika Lopez MD Primary Care Provider Lubna Bart Lopez MD Primary Care Provider + [phone] Yobani Arredondo MD Primary Care Provider [phone] Encounter Details Date Type Department Care Team (Late st Contact Info) Description 07/28/2013 Orders Only [facility] Internal Medicine [address] [place] [phone] Erika Lopez MD Social History Tobacco Use [...] of this encounter Procedures * Due to [place] state law, this organization might not be sharing negative HIV tests. Procedure Name Priority Date/Time Associated Diagnosis Comments HCG, (HUMAN CHORIONIC GONADOTROPIN), TOTAL, QUANTITATIVE Routine 07/28/2013 11:53 AM EDT Irregular periods TSH, 3RD GENERATION Routine 07/28/2013 1 1:53 AM EDT Irregular periods PROLACTIN Routine 07/28/2013 11:53 AM EDT Irregular periods documented in this encounter Results * Due to [place] state law, this organization might not be sharing negative HIV tests. * (ABNORMAL) PROLACTIN (07/28/2013 11:53 AM EDT) Prolactin 31.1(H) ng/mL [facility] Comment: {PROLACTIN {[id number]) ?Reference Range Females ?Non- ?3.0-30.0 ? 10.0-209.0 ?Postmenopausal ?2.0-20.0 07/28/2013 11:5 3 AM EDT 07/28/2013 9:55 PM EDT Narrative Resulting Agency Comment [id number] us Erika Lopez MD LAB SAME DAY RESULT Final Result [facility] [address] [place] [address] * (ABNORMAL) TSH, 3RD GENERATION (07/28/2013 11:53 AM EDT) TSH 4.85(H) mIU/L [facility] Comment: {TSH {[id number]) ?Reference Range ?> or = 20 Years ??0.40-4.50 ? Ranges ?First trimester ?0.26-2.66 ?Second trimester ?? 0.55-2.73 ?Third trimester ?0.43-2.91 07/28/2013 11:5 3 AM EDT 07/28/2013 9:55 PM EDT Narrative Resulting Agency Comment [id number] Erika Lopez MD LABORATORY Final Resu lt Performing Organization Address [facility] de Phone Number [facility] [address] [place] [phone] * HCG, (HUMAN CHORIONIC GONADOTROPIN), TOTAL, QUANTITATIVE (07/28/2013 11:53 AM EDT) HCG, Total, Quantitative <2 mIU/mL [facility] Comment: {HCG, TOTAL, QN {[id number]) Reference Range Non or premenopausal ?<5 Postmenopausal ? <10 Values from different assay methods may vary. The use of this assay to monitor or to diagnose patients with cancer or any condition unrelated to has not been cleared or approved by the FDA or the md do resident urgent care of the assay. 07/28/2013 11:5 3 AM EDT 07/28/2013 9:55 PM EDT Narrative Resulting Agency Comment [id number] Erika Lopez MD LAB SAME DAY RESULT Final Result Performing Organization Address [facility] Co de Phone Number [facility] [address] [place] [address] documented in this encounter Visit Diagnoses Diagnosis Irregular periods Irregular menstrual cycle documented in this encounter Care Teams Deputy Sheriff Custody Relationship Specialty Start Date End Date Erika Lopez MD PCP - General 04/22/13 03/12/14 Bart Cortez MD PCP - General Internal Medicine 03/13/14 07/19/14 Yobani Arredondo MD PCP - General Family Medicine 07/20/14 documented as of this encounter
--- OUTSIDE RECORDS SUMMARY | 2024-08-08 08:43 | XMS_ITS | Encounter Summary ---
Author Organization [facility] Address [address] [place] [address] Care Team Providers Care Oracle Database Manager Name Role Phone Erika Lopez MD Primary Care Provider Lubna Bart Lopez MD Primary Care Provider + [phone] Yobani Arredondo MD Primary Care Provider [phone] Encounter Details Date Type Department Care Team (Late st Contact Info) Description 06/30/2013 Orders Only [facility] [address] [place], [place] [phone] Dawood Marino MD [address] [place] [address] Social History Tobacco Use Types Packs/Day Years [...] Specimen source [facility] Comment:{SOURCE: {[id number]) Microscopic observation NO CLUE CELLS SEEN [facility] Comment: {RESULT: {[id number]) NO FUNGAL ELEMENTS SEEN. NO TRICHOMONAS VAGINALIS SEEN. 06/30/2013 7:07 PM EDT 06/30/2013 7:12 PM EDT Narrative Resulting Agency Comment [id number] us Dawood Marino MD LAB SAME DAY RESULT Final Result Performing Organization Address [facility] Co de Phone Number [facility] [address] [place] [address] * BV/VAGINITIS PANELDNA PROBE (06/30/2013 7:07 PM EDT) Trichomonas vaginalis rRNA (Genital) NOT DETECTED NOT DETECTED [facility] Comment:{TRICHOMONAS: {[id number]) Gardnerella vaginalis rRNA (Genital) NOT DETECTED NOT DETECTED [facility] Comment:{GARDNERELLA: {[id number]) Christelle sp rRNA (Vag) NOT DETECTED NOT DETECTED [facility] Comment:{CHRISTELLE: {[id number]) 06/30/2013 7:07 PM EDT 06/30/2013 7:12 PM EDT Narrative Resulting Agency Comment [id number] us Dawood Marino MD LABORATORY Final Result Performing Organization Address [facility] Co de Phone Number [facility] [address] [place] [address] * CHLAMYDIA TRACHOMATIS/N. GONORRHOEAE (GC) RNA, TMA (APTIMA GENITAL SWAB) (06/30/2013 7:07 PM EDT) Chlamydia trachomatis rRNA NOT DETECTED NOT DETECTED [facility] Comment:{CHLAMYDIA TRACHOMAT IS RNA, TMA {[id number]) Neisseria Gonorrhoeae rRNA NOT DETECTED NOT DETECTED [facility] Comment:{NEISSERIA GONORRHOE AE RNA, TMA {[id number]) COMMENT SEE NOTE [facility] Comment: {COMMENT {[id number]) This test was performed using the APTIMA COMBO2 Assay ([employer] The analytical performance characteristics of this assay, when used to test SurePath specimens have been determined by [employer]. 06/30/2013 7:07 PM EDT 06/30/2013 7:12 PM EDT Narrative Resulting Agency Comment [id number] us Dawood Marino MD LABORATORY Final Result Performing Organization Address City/[facility]/ZIP Co de Phone Number [facility] [address] [place] [address] * HCG, TOTAL, QL (06/30/2013 5:57 PM EDT) Pathologist [facility] HCG, Qualitative (Screen) NEGATIVE [facility] Comment: {HCG, TOTAL, QL {[id number]) Reference Range Non-: Negative : ? Positive 06/30/2013 5:57 PM EDT 06/30/2013 6:02 PM EDT Narrative Resulting Agency Comment [id number] us Dawood Marino MD LAB SAME DAY RESULT Final Result [facility] [address] [place] [address] * CULTURE, URINE, ROUTINE (06/30/2013 5:28 PM EDT) Bacteria culture (Urine) SEE NOTE [facility] Comment: {CULTURE, URINE, ROUTINE {[id number]) ??CULTURE, URINE, ROUTINE ??MICRO NUMBER: ?[id number] ??TEST STATUS: ? FINAL ??SPECIMEN SOURCE: ?? URINE ??SPECIMEN QUALITY: ??ADEQUATE ??RESULT: ?Multiple organisms present, each less than 10,000 ? CFU/mL. These organisms, commonly found on ? external and internal genitalia, are considered ? to be colonizers. No further testing performed. 06/30/2013 5:28 PM EDT 06/30/2013 5:49 PM EDT Narrative Resulting Agency Comment [id number] us Tyler Brown MD LABORATORY Final Result [facility] [address] [place] [address] * (ABNORMAL) URINALYSIS, MICROSCOPIC (06/30/2013 5:28 PM EDT) WBC (Urine) 0-5 < OR = 5 /HPF [facility] Comment:{WBC {[id number]) RBC (Urine Sed) NONE SEEN < OR = 3 /HPF [facility] Comment:{RBC {[id number]) Epithelial cells.squamous (Urine sed) 0-5 < OR = 5 /HPF [facility] Comment:{SQUAMOUS EPITHELIAL CELLS {[id number]) Transitional cells (Urine sed) NONE SEEN < OR = 5 /HPF [facility] Comment:{TRANSITIONAL EPITHE LIAL CELLS {[id number]) Epithelial cells.renal (Urine sed) NONE SEEN < OR = 3 /HPF [facility] Comment:{RENAL EPITHELIAL CE LLS {[id number]) Bacteria (Urine) MANY(A) NONE SEEN /HPF [facility] Comment:{BACTERIA {[id number]) Yeast (Urine sed) NONE SEEN NONE SEEN /HPF [facility] Comment:{YEAST {[id number]) Service comment 01 MANY MUCOUS THREADS [facility] Comment:{COMMENTS {[id number]) Service comment 01 See Below [facility] Comment: {NOTE {[id number]) This urine was analyzed for the presence of WBC, RBC, bacteria, casts, and other formed elements. Only those elements seen were reported. 06/30/2013 5:28 PM EDT 06/30/2013 5:49 PM EDT Narrative Resulting Agency Comment [id number] us Tyler Brown MD LAB SAME DAY RESULT Final Re sult Performing Organization Address [facility] Co de Phone Number [facility] [address] [place] [address] * INFLUENZA A AND B ANTIGENDETECTION, EIA (06/30/2013 5:15 PM EDT) Specimen source NASAL [facility] Comment:{SOURCE: {[id number]) Influenza Virus A Ag NOT DETECTED NOT DETECTED [facility] Comment:{INFLUENZA A ANTIGEN {[id number]) Influenza virus B Ag (Naspopharynx ) NOT DETECTED NOT DETECTED [facility] Comment:{INFLUENZA B ANTIGEN {[id number]) 06/30/2013 5:15 PM EDT 06/30/2013 5:28 PM EDT Narrative Resulting Agency Comment [id number] us Dawood Marino MD LAB SAME DAY RESULT Final Result Performing Organization Address [facility] Co de Phone Number [facility] [address] [place] [address] * BORRELIA BURGDORFERI AB (LYME), EIA WITH REFLEX IGG, IGM WB (06/30/2013 5:15 PM EDT) Borrelia burgdorferi Ab < OR = 0.90 index [facility] Comment: {LYME AB SCREEN {[id number]) ? Index ? Interpretation ? ----- ? [...] 5:28 PM EDT Narrative Resulting Agency Comment [id number] Dawood Marino MD LABORATORY Final Result Performing Organization Address City/State/[facility] Co de Phone Number [facility] [address] [place] [address] * HEPATIC FUNCTION PANEL (06/30/2013 5:15 PM EDT) Protein Total (Serum) 6.4 6.1 - 8.1 g/dL [facility] Comment:{PROTEIN, TOTAL {[id number]) Albumin 4.0 3.6 - 5.1 g/dL [facility] Comment:{ALBUMIN {[id number]) Globulin 2.4 1.9 - 3.7 g/dL (calc) [facility] Comment:{GLOBULIN {[id number]) Albumin/Globulin 1.7 1.0 - 2.5 (calc) [facility] Comment:{ALBUMIN/GLOBULIN RA VINAYAK {[id number]) Bilirubin Total 0.4 0.2 - 1.2 mg/dL [facility] Comment:{BILIRUBIN, TOTAL {[id number]) Bilirubin Direct 0.1 < OR = 0.2 mg/dL [facility] Comment:{BILIRUBIN, DIRECT { [id number]) Bilirubin Indirect 0.3 0.2 - 1.2 mg/dL (calc) [facility] Comment:{BILIRUBIN, INDIRECT {[id number]) Alkaline phosphatase 62 33 - 115 U/L [facility] Comment:{ALKALINE PHOSPHATAS E {[id number]) AST (SGOT) 13 10 - 30 U/L [facility] Comment:{AST {[id number]) ALT (SGPT) 8 6 - 29 U/L [facility] Comment:{ALT {[id number]) 06/30/2013 5:15 PM EDT 06/30/2013 5:28 PM EDT Narrative Resulting Agency Comment [id number] Dawood Marino MD LABORATORY Final Result [facility] [address] [place] [address] * (ABNORMAL) CBC INCLUDES DIFFERENTIAL AND PLATELET COUNT (06/30/2013 5:15 PM EDT) WBC 10.6 3.8 - 10.8 Thousand/ uL [facility] Comment:{WHITE BLOOD CELL CO UNT {[id number]) RBC 4.73 3.80 - 5.10 Million/u L [facility] Comment:{RED BLOOD CELL COUN T {[id number]) Hemoglobin 13.2 11.7 - 15.5 g/dL [facility] Comment:{HEMOGLOBIN {[id number]) Hematocrit 41.7 35.0 - 45.0 % [facility] Comment:{HEMATOCRIT {[id number]) MCV 88.2 80.0 - 100.0 fL [facility] Comment:{MCV {[id number]) MCH 27.9 27.0 - 33.0 pg [facility] Comment:{MCH {[id number]) MCHC 31.6(L) 32.0 - 36.0 g/dL [facility] Comment:{MCHC {[id number]) RDW 14.1 11.0 - 15.0 % [facility] Comment:{RDW {[id number]) PLT 362 140 - 400 Thousand/ uL [facility] Comment:{PLATELET COUNT {[id number]) MPV 7.7 7.5 - 11.5 fL [facility] Comment:{MPV {[id number]) Neutrophils # 6604 1500 - 7800 cells/uL [facility] Comment:{ABSOLUTE NEUTROPHIL S {[id number]) Lymphocytes # 2968 850 - 3900 cells/uL [facility] Comment:{ABSOLUTE LYMPHOCYTE S {[id number]) Monocytes # 869 200 - 950 cells/uL [facility] Comment:{ABSOLUTE MONOCYTES {[id number]) Eosinophils # 106 15 - 500 cells/uL [facility] Comment:{ABSOLUTE EOSINOPHIL S {[id number]) Basophils # 53 0 - 200 cells/uL [facility] Comment:{ABSOLUTE BASOPHILS {[id number]) Neutrophils % 62.3 % [facility] Comment:{NEUTROPHILS {[id number]) Lymphocytes % 28.0 % [facility] Comment:{LYMPHOCYTES {[id number]) Monocytes % 8.2 % [facility] Comment:{MONOCYTES {[id number]) Eosinophils % 1.0 % [facility] Comment:{EOSINOPHILS {[id number]) Basophils % 0.5 % [facility] Comment:{BASOPHILS {[id number]) 06/30/2013 5:15 PM EDT 06/30/2013 5:28 PM EDT Narrative Resulting Agency Comment [id number] us Dawood Marino MD LAB SAME DAY RESULT Final Result [facility] [address] [place] [address] * BASIC METABOLIC PANEL WITH (GFR) (06/30/2013 5:15 PM EDT) Glucose 82 65 - 99 mg/dL [facility] Comment: {GLUCOSE {[id number]) ? Fasting reference interval Urea Nitrogen Blood (BUN) 10 7 - 25 mg/dL [facility] Comment:{UREA NITROGEN (BUN) {[id number]) Creatinine 0.71 0.50 - 1.10 mg/dL [facility] Comment:{CREATININE {[id number]) GFR 119 > OR = 60 mL/min/1. 73m2 [facility] Comment:{eGFR NON-AFR. AMERI CAN {[id number]) GFR () 138 > OR = 60 mL/min/1. 73m2 [facility] Comment:{eGFR AMERIC AN {[id number]) BUN/Creatinine Ratio NOT APPLICABLE 6 - (calc) [facility] Comment:{BUN/CREATININE RATI O {[id number]) Sodium 139 135 - 146 mmol/L [facility] Comment:{SODIUM {[id number]) Potassium 3.9 3.5 - 5.3 mmol/L [facility] Comment:{POTASSIUM {[id number]) Chloride 106 98 - 110 mmol/L [facility] Comment:{CHLORIDE {[id number]) Carbon dioxide 27 19 - 30 mmol/L [facility] Comment:{CARBON DIOXIDE {[id number]) Calcium 9.2 8.6 - 10.2 mg/dL [facility] Comment:{CALCIUM {[id number]) 06/30/2013 5:15 PM EDT 06/30/2013 5:28 [...] needs for GFR calculation. Resulting Agency Comment [id number] us Dawood Marino MD LABORATORY Final Result Performing Organization Address City/State/[facility] Co de Phone Number [facility] [address] [place] [address] documented in this encounter Visit Diagnoses Diagnosis Fever Fever, unspecified Left flank pain Abdominal pain, unspecified site Chronic abdominal pain Abdominal pain, unspecified site documented in this encounter Care Teams Oracle Database Manager Relationship Specialty Start Date End Date Erika Lopez MD PCP - General 04/22/13 03/12/14 Bart Cortez MD PCP - General Internal Medicine 03/13/14 07/19/14 Yobani Arredondo MD PCP - General Family Medicine 07/20/14 documented as of this encounter
--- OUTSIDE RECORDS SUMMARY | 2024-08-08 08:43 | XMS_ITS | Encounter Summary ---
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 Not on file Not on file documented as of this encounter Progress Notes * Dawood Marino MD - 03/14/2014 1:49 PM ESTQuick Note: No action needed * Osmle Lozano MD - 03/13/2014 7:50 PM ESTQuick [...] this encounter Procedures * Due to [place] [employer] law, this organization might not be sharing [...] 391 mcg/dL [facility] Comment:{DHEA SULFATE {[id number]) 03/12/2014 3:22 PM EST 03/13/2014 12:21 AM EST Narrative [facility] - 03/13/2014 6:39 PM EST Report Comments: PLEASE DO TSH PREVIOUSLY BOOKED Resulting Agency Comment [id number] us Stormy Canas MD LABORATORY Final Result Performing Organization Address [facility] de Phone Number [facility] [address] [place] [address] * CREATINE KINASE (CK), SERUM (03/12/2014 3:22 PM EST) CPK 43 29 - 143 U/L [facility] Comment:{CREATINE KINASE, TO SANAM {[id number]) 03/12/2014 3:22 PM EST 03/13/2014 12:21 AM EST Narrative [facility] - 03/13/2014 3:57 AM EST Report Comments: PLEASE DO TSH PREVIOUSLY BOOKED Resulting Agency Comment [id number] us Stormy Canas MD LAB SAME DAY RESULT Final Resul t Performing Organization Address [facility] de Phone Number [facility] [address] [place] [address] * BORRELIA BURGDORFERI AB (LYME), EIA WITH REFLEX IGG, IGM WB (03/12/2014 3:22 PM EST) Borrelia burgdorferi Ab < OR = 0.90 index [facility] Comment: {LYME AB SCREEN {[id number]) ? Index ? Interpretation ? ----- ? [...] PM EST 03/13/2014 12:21 AM EST Narrative [facility] - 03/13/2014 10:58 PM EST Report Comments: PLEASE DO TSH PREVIOUSLY BOOKED Resulting Agency Comment [id number] Stormy Canas MD LABORATORY Final Result Performing Organization Address City/State/[facility] Co de Phone Number [facility] [address] [place] [address] * ERYTHROCYTE SEDIMENTATION RATE (ESR), HAN (03/12/2014 3:22 PM EST) Sedimentation Rate Tedegren (ESR) 6 < OR = 20 mm/h [facility] Comment:{SED RATE BY YOSEPH SHORT {[id number]) 03/12/2014 3:22 PM EST 03/13/2014 12:21 AM EST Narrative [facility] - 03/13/2014 4:25 AM EST Report Comments: PLEASE DO TSH PREVIOUSLY BOOKED Resulting Agency Comment [id number] us Stormy Canas MD LAB SAME DAY RESULT Final Resul t [facility] [address] [place] [address] * AMYLASE, SERUM (03/12/2014 3:22 PM EST) Amylase 40 21 - 101 U/L [facility] Comment:{AMYLASE {[id number]) 03/12/2014 3:22 PM EST 03/13/2014 12:21 AM EST Narrative [facility] - 03/13/2014 3:57 AM EST Report Comments: PLEASE DO TSH PREVIOUSLY BOOKED Resulting Agency Comment [id number] us Stormy Canas MD LAB SAME DAY RESULT Final Resul t Performing Organization Address City/[facility] Co de Phone Number [facility] [address] [place] [address] * HEPATIC FUNCTION PANEL (03/12/2014 3:22 PM EST) Protein Total (Serum) 7.4 6.1 - 8.1 g/dL [facility] Comment:{PROTEIN, TOTAL {[id number]) Albumin 4.5 3.6 - 5.1 g/dL [facility] Comment:{ALBUMIN {[id number]) Globulin 2.9 1.9 - 3.7 g/dL (calc) [facility] Comment:{GLOBULIN {[id number]) Albumin/Globulin 1.6 1.0 - 2.5 (calc) [facility] Comment:{ALBUMIN/GLOBULIN RA VINAYAK {[id number]) Bilirubin Total 0.6 0.2 - 1.2 mg/dL [facility] Comment:{BILIRUBIN, TOTAL {[id number]) Bilirubin Direct 0.1 < OR = 0.2 mg/dL [facility] Comment:{BILIRUBIN, DIRECT { [id number]) Bilirubin Indirect 0.5 0.2 - 1.2 mg/dL (calc) [facility] Comment:{BILIRUBIN, INDIRECT {[id number]) Alkaline phosphatase 68 33 - 115 U/L [facility] Comment:{ALKALINE PHOSPHATAS E {[id number]) AST (SGOT) 11 10 - 30 U/L [facility] Comment:{AST {[id number]) ALT (SGPT) 6 6 - 29 U/L [facility] Comment:{ALT {[id number]) 03/12/2014 3:22 PM EST 03/13/2014 12:21 AM EST Narrative [facility] - 03/13/2014 3:57 AM EST Report Comments: PLEASE DO TSH PREVIOUSLY BOOKED Resulting Agency Comment [id number] us Stormy Canas MD LABORATORY Final Result [facility] [address] [place] [address] * BASIC METABOLIC PANEL WITH (GFR) (03/12/2014 3:22 PM EST) Glucose 78 65 - 99 mg/dL [facility] Comment: {GLUCOSE {[id number]) ? Fasting reference interval Urea Nitrogen Blood (BUN) 8 7 - 25 mg/dL [facility] Comment:{UREA NITROGEN (BUN) {[id number]) Creatinine 0.68 0.50 - 1.10 mg/dL [facility] Comment:{CREATININE {[id number]) GFR 122 > OR = 60 mL/min/1. 73m2 [facility] Comment:{eGFR NON-AFR. AMERI CAN {[id number]) GFR () 142 > OR = 60 mL/min/1. 73m2 [facility] Comment:{eGFR AMERIC AN {[id number]) BUN/Creatinine Ratio NOT APPLICABLE (calc) [facility] Comment:{BUN/CREATININE RATI O {[id number]) Sodium 139 135 - 146 mmol/L [facility] Comment:{SODIUM {[id number]) Potassium 4.1 3.5 - 5.3 mmol/L [facility] Comment:{POTASSIUM {[id number]) Chloride 102 98 - 110 mmol/L [facility] Comment:{CHLORIDE {[id number]) Carbon dioxide 25 19 - 30 mmol/L [facility] Comment:{CARBON DIOXIDE {[id number]) Calcium 9.7 8.6 - 10.2 mg/dL [facility] Comment:{CALCIUM {[id number]) 03/12/2014 3:22 PM EST 03/13/2014 12:21 [...] DO TSH PREVIOUSLY BOOKED Resulting Agency Comment [id number] Stormy Canas MD LABORATORY Final Result [facility] [address] [place] [address] * (ABNORMAL) CBC INCLUDES DIFFERENTIAL AND PLATELET COUNT (03/12/2014 3:22 PM EST) WBC 12.6(H) 3.8 - 10.8 Thousand/ uL [facility] Comment:{WHITE BLOOD CELL CO UNT {[id number]) RBC 4.84 3.80 - 5.10 Million/u L [facility] Comment:{RED BLOOD CELL COUN T {[id number]) Hemoglobin 14.2 11.7 - 15.5 g/dL [facility] Comment:{HEMOGLOBIN {[id number]) Hematocrit 44.4 35.0 - 45.0 % [facility] Comment:{HEMATOCRIT {[id number]) MCV 91.8 80.0 - 100.0 fL [facility] Comment:{MCV {[id number]) MCH 29.4 27.0 - 33.0 pg [facility] Comment:{MCH {[id number]) MCHC 32.0 32.0 - 36.0 g/dL [facility] Comment:{MCHC {[id number]) RDW 14.3 11.0 - 15.0 % [facility] Comment:{RDW {[id number]) PLT 287 140 - 400 Thousand/ uL [facility] Comment:{PLATELET COUNT {[id number]) MPV 8.7 7.5 - 11.5 fL [facility] Comment:{MPV {[id number]) Neutrophils # 8946(H) 1500 - 7800 cells/uL [facility] Comment:{ABSOLUTE NEUTROPHIL S {[id number]) Lymphocytes # 2835 850 - 3900 cells/uL [facility] Comment:{ABSOLUTE LYMPHOCYTE S {[id number]) Monocytes # 718 200 - 950 cells/uL [facility] Comment:{ABSOLUTE MONOCYTES {[id number]) Eosinophils # 76 15 - 500 cells/uL [facility] Comment:{ABSOLUTE EOSINOPHIL S {[id number]) Basophils # 25 0 - 200 cells/uL [facility] Comment:{ABSOLUTE BASOPHILS {[id number]) Neutrophils % 71.0 % [facility] Comment:{NEUTROPHILS {[id number]) Lymphocytes % 22.5 % [facility] Comment:{LYMPHOCYTES {[id number]) Monocytes % 5.7 % [facility] Comment:{MONOCYTES {[id number]) Eosinophils % 0.6 % [facility] Comment:{EOSINOPHILS {[id number]) Basophils % 0.2 % [facility] Comment:{BASOPHILS {[id number]) 03/12/2014 3:22 PM EST 03/13/2014 12:21 AM EST Narrative [facility] - 03/13/2014 1:54 AM EST Report Comments: PLEASE DO TSH PREVIOUSLY BOOKED Resulting Agency Comment [id number] us Stormy Canas MD LAB SAME DAY RESULT Final Resul t [facility] [address] [place] [address] * PROLACTIN (03/12/2014 3:22 PM EST) Prolactin 6.7 ng/mL [facility] Comment: {PROLACTIN {[id number]) ?Reference Range Females ?Non- ?3.0-30.0 ? 10.0-209.0 ?Postmenopausal ?2.0-20.0 03/12/2014 3:22 PM EST 03/13/2014 12:21 AM EST Narrative [facility] - 03/13/2014 5:06 AM EST Report Comments: PLEASE DO TSH PREVIOUSLY BOOKED Resulting Agency Comment [id number] us Stormy Canas MD LAB SAME DAY RESULT Final Resul t [facility] [address] [place] [address] documented in this encounter Visit Diagnoses Diagnosis Hyperprolactinemia (HHS) Other and unspecified anterior pituitary hyperfunction Hypomenorrhea Scanty or infrequent menstruation Loss of hair Alopecia, unspecified Muscle pain Mylagia and myositis, unspecified Loss of appetite Anorexia Vomiting Vomiting alone documented in this encounter Care Teams Senior Game Developer Relationship Specialty Start Date End Date Erika Lopez MD PCP - General 04/22/13 03/12/14 Bart Cortez MD PCP - General Internal Medicine 03/13/14 07/19/14 Yobani Arredondo MD PCP - General Family Medicine 07/20/14 documented as of this encounter
--- OUTSIDE RECORDS SUMMARY | 2024-08-08 08:43 | XMS_ITS | Encounter Summary ---
Author Organization [facility] Address [address] [place] [address] Care Team Providers Care Sales And Marketing Specialist Name Role Phone Erika Lopez MD Primary Care Provider Lubna Bart Lopez MD Primary Care Provider + [phone] Yobani Arredondo MD Primary Care Provider [phone] Encounter Details Date Type Department Care Team (Late st Contact Info) Description 08/04/2013 Orders Only [facility] [address] [place] [address] Margarette Bailey PA [address] [place] [address] Social History Tobacco Use Types Packs/Day Years [...] of this encounter Procedures * Due to [place] state law, this organization might not be [...] in this encounter Results * Due to [place] state law, this organization might not be sharing negative HIV tests. * (ABNORMAL) CBC INCLUDES DIFFERENTIAL AND PLATELET COUNT (08/04/2013 5:43 PM EDT) WBC 15.9(H) 3.8 - 10.8 Thousand/ uL [facility] Comment:{WHITE BLOOD CELL CO UNT {[id number]) RBC 5.01 3.80 - 5.10 Million/u L [facility] Comment:{RED BLOOD CELL COUN T {[id number]) Hemoglobin 14.2 11.7 - 15.5 g/dL [facility] Comment:{HEMOGLOBIN {[id number]) Hematocrit 44.4 35.0 - 45.0 % [facility] Comment:{HEMATOCRIT {[id number]) MCV 88.7 80.0 - 100.0 fL [facility] Comment:{MCV {[id number]) MCH 28.4 27.0 - 33.0 pg [facility] Comment:{MCH {[id number]) MCHC 32.0 32.0 - 36.0 g/dL [facility] Comment:{MCHC {[id number]) RDW 13.8 11.0 - 15.0 % [facility] Comment:{RDW {[id number]) PLT 354 140 - 400 Thousand/ uL [facility] Comment:{PLATELET COUNT {[id number]) MPV 7.5 7.5 - 11.5 fL [facility] Comment:{MPV {[id number]) Neutrophils # 38228(H) 1500 - 7800 cells/uL [facility] Comment:{ABSOLUTE NEUTROPHIL S {[id number]) Lymphocytes # 3530 850 - 3900 cells/uL [facility] Comment:{ABSOLUTE LYMPHOCYTE S {[id number]) Monocytes # 1034(H) 200 - 950 cells/uL [facility] Comment:{ABSOLUTE MONOCYTES {[id number]) Eosinophils # 95 15 - 500 cells/uL [facility] Comment:{ABSOLUTE EOSINOPHIL S {[id number]) Basophils # 80 0 - 200 cells/uL [facility] Comment:{ABSOLUTE BASOPHILS {[id number]) Neutrophils % 70.2 % [facility] Comment:{NEUTROPHILS {[id number]) Lymphocytes % 22.2 % [facility] Comment:{LYMPHOCYTES {[id number]) Monocytes % 6.5 % [facility] Comment:{MONOCYTES {[id number]) Eosinophils % 0.6 % [facility] Comment:{EOSINOPHILS {[id number]) Basophils % 0.5 % [facility] Comment:{BASOPHILS {[id number]) 08/04/2013 5:43 PM EDT 08/04/2013 5:47 PM EDT Narrative Resulting Agency Comment [id number] Margarette OKEEFE LAB SAME DAY RESULT Final Result [facility] [address] [place] [address] * BASIC METABOLIC PANEL WITH (GFR) (08/04/2013 5:43 PM EDT) Glucose 83 65 - 99 mg/dL [facility] Comment: {GLUCOSE {[id number]) ? Fasting reference interval Urea Nitrogen Blood (BUN) 10 7 - 25 mg/dL [facility] Comment:{UREA NITROGEN (BUN) {[id number]) Creatinine 0.75 0.50 - 1.10 mg/dL [facility] Comment:{CREATININE {[id number]) GFR 112 > OR = 60 mL/min/1. 73m2 [facility] Comment:{eGFR NON-AFR. AMERI CAN {[id number]) GFR () 129 > OR = 60 mL/min/1. 73m2 [facility] Comment:{eGFR AMERIC AN {[id number]) BUN/Creatinine Ratio NOT APPLICABLE 6 (calc) [facility] Comment:{BUN/CREATININE RATI O {[id number]) Sodium 137 135 - 146 mmol/L [facility] Comment:{SODIUM {[id number]) Potassium 3.7 3.5 - 5.3 mmol/L [facility] Comment:{POTASSIUM {[id number]) Chloride 104 98 - 110 mmol/L [facility] Comment:{CHLORIDE {[id number]) Carbon dioxide 25 19 - 30 mmol/L [facility] Comment:{CARBON DIOXIDE {[id number]) Calcium 9.6 8.6 - 10.2 mg/dL [facility] Comment:{CALCIUM {[id number]) 08/04/2013 5:43 PM EDT 08/04/2013 5:47 [...] needs for GFR calculation. Resulting Agency Comment [id number] us Margarette OKEEFE LABORATORY Final Result Performing Organization Address [facility] Co de Phone Number [facility] [address] [place] [address] * STREPTOCOCCUS, GROUP A CULTURE (08/04/2013 4:49 PM EDT) Pathologist [facility] Culture, Streptococci Group A, Throat SEE NOTE [facility] Comment: {STREPTOCOCCUS, GROUP A CULTURE {[id number]) ??STREPTOCOCCUS, GROUP A CULTURE ??MICRO NUMBER: ?[id number] ??TEST STATUS: ? FINAL ??SPECIMEN SOURCE: ?? THROAT ??SPECIMEN QUALITY: ??ADEQUATE ??RESULT: ?No beta hemolytic Streptococci isolated 08/04/2013 4:49 PM EDT 08/04/2013 5:01 PM EDT Narrative Resulting Agency Comment [id number] us Osmel Lozano MD LABORATORY Final Resul t Performing Organization Address City/[facility] Co de Phone Number [facility] [address] [place] [address] * CULTURE, URINE, ROUTINE (08/04/2013 4:49 PM EDT) Bacteria culture (Urine) SEE NOTE [facility] Comment: {CULTURE, URINE, ROUTINE {[id number]) ??CULTURE, URINE, ROUTINE ??MICRO NUMBER: ?[id number] ??TEST STATUS: ? FINAL ??SPECIMEN SOURCE: ?? URINE ??SPECIMEN QUALITY: ??ADEQUATE ??RESULT: ?No Growth 08/04/2013 4:49 PM EDT 08/04/2013 5:01 PM EDT Narrative Resulting Agency Comment [id number] us Osmel Lozano MD LABORATORY Final Resul t [facility] [address] [place] [address] * (ABNORMAL) URINALYSIS, MICROSCOPIC (08/04/2013 4:49 PM EDT) WBC (Urine) 0-5 < OR = 5 /HPF [facility] Comment:{WBC {[id number]) RBC (Urine Sed) 0-3 < OR = 3 /HPF [facility] Comment:{RBC {[id number]) Epithelial cells.squamous (Urine sed) 0-5 < OR = 5 /HPF [facility] Comment:{SQUAMOUS EPITHELIAL CELLS {[id number]) Bacteria (Urine) MODERATE(A) NONE SEEN /HPF [facility] Comment:{BACTERIA {[id number]) Service comment 01 MODERATE MUCOUS THREADS [facility] Comment:{COMMENTS {[id number]) Service comment 01 See Below [facility] Comment: {NOTE {[id number]) This urine was analyzed for the presence of WBC, RBC, bacteria, casts, and other formed elements. Only those elements seen were reported. 08/04/2013 4:49 PM EDT 08/04/2013 5:01 PM EDT Narrative Resulting Agency Comment [id number] us Osmel Lozano MD LAB SAME DAY RESULT Final R esult [facility] [address] [place] [address] documented in this encounter Visit Diagnoses Diagnosis Urinary tract infection Urinary tract infection, site not specified Sore throat Acute pharyngitis Viral gastroenteritis Intestinal infection due to other organism, not elsewhere classified documented in this encounter Care Teams Sales And Marketing Specialist Relationship Specialty Start Date End Date Erika Lopez MD PCP - General 04/22/13 03/12/14 Bart Cortez MD PCP - General Internal Medicine 03/13/14 07/19/14 Yobani Arredondo MD PCP - General Family Medicine 07/20/14 documented as of this encounter
--- OUTSIDE RECORDS SUMMARY | 2024-08-08 08:43 | XMS_ITS | Clinical Summary ---
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
--- OUTSIDE RECORDS SUMMARY | 2024-08-08 08:43 | XMS_ITS | Encounter Summary ---
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 Procedure Name Priority Date/Time Associated Diagnosis Comments THYROID STIMULATING HORMONE (TSH) WITH FREE T4 REFLEX, SERUM Routine 03/12/2014 3:22 PM EST Hypothyroidism documented in this encounter Results * Due to [facility] law, this organization might not be sharing negative HIV tests. * THYROID STIMULATING HORMONE (TSH) WITH FREE T4 REFLEX, SERUM (03/12/2014 3:22 PM EST) TSH 0.97 mIU/L [facility] Comment: {TSH W/REFLEX TO FT4 {[id number]) ?Reference Range ?> or = 20 Years ??0.40-4.50 ? Ranges ?First trimester ?0.26-2.66 ?Second trimester ?? 0.55-2.73 ?Third trimester ?0.43-2.91 03/12/2014 3:2 2 PM EST 03/13/2014 12:22 AM EST Narrative Resulting Agency Comment [id number] us Erika Lopez MD LABORATORY Final Resu lt Performing Organization Address City/State/[facility] Co de Phone Number [facility] [address] [place] [address] documented in this encounter Visit Diagnoses Diagnosis Hypothyroidism Unspecified hypothyroidism documented in this encounter Care Teams Farm Owner Operator Relationship Specialty Start Date End Date Erika Lopez MD PCP - General 04/22/13 03/12/14 Bart Cortez MD PCP - General Internal Medicine 03/13/14 07/19/14 Yobani Arredondo MD PCP - General Family Medicine 07/20/14 documented as of this encounter
--- OUTSIDE RECORDS SUMMARY | 2024-08-08 08:43 | XMS_ITS | Encounter Summary ---
Author Organization [facility] Address [address] [place] [address] Care Team Providers Care Senior Power Plant Operator Name Role Phone Erika Lopez MD Primary Care Provider Lubna Bart Lopez MD Primary Care Provider + [phone] Yobani Arredondo MD Primary Care Provider [phone] Encounter Details Date Type Department Care Team (Late st Contact Info) Description 08/29/2013 Orders Only [facility] Internal Medicine [address] [place] [address] Erika Lopez MD Social History Tobacco Use [...] this encounter Procedures * Due to [place] [employer] law, this organization might not be sharing [...] - 181 ng/dL [facility] Comment:{T3, TOTAL {[id number]) 08/29/2013 5:13 PM EDT 08/29/2013 11:59 PM EDT Narrative Resulting Agency Comment [id number] us Erika Lopez MD LABORATORY Final Resu lt [facility] [address] [place] [address] * T4, FREE, SERUM (08/29/2013 5:13 PM EDT) FT4 1.0 0.8 - 1.8 ng/dL [facility] Comment:{T4, FREE {[id number]) 08/29/2013 5:13 PM EDT 08/29/2013 11:59 PM EDT Narrative Resulting Agency Comment [id number] us Erika Lopez MD LABORATORY Final Resu lt [facility] [address] [place] [address] * THYROID PEROXIDASEANTIBODIES (08/29/2013 5:13 PM EDT) Thyroperoxidase Ab 1 <9 IU/mL Q [facility] Comment:{THYROID PEROXIDASE ANTIBODIES {[id number]) 08/29/2013 5:13 PM EDT 08/29/2013 11:59 PM EDT Narrative Resulting Agency Comment [id number] us Erika Lopez MD LABORATORY Final Resu lt Performing Organization Address [facility] de Phone Number [facility] [address] [place] [address] * TSH, 3RD GENERATION (08/29/2013 5:13 PM EDT) TSH 1.62 mIU/L [facility] Comment: {TSH {[id number]) ?Reference Range ?> or = 20 Years ??0.40-4.50 ? Ranges ?First trimester ?0.26-2.66 ?Second trimester ?? 0.55-2.73 ?Third trimester ?0.43-2.91 08/29/2013 5:13 PM EDT 08/29/2013 11:59 PM EDT Narrative Resulting Agency Comment [id number] Erika Lopez MD LABORATORY Final Resu lt Performing Organization Address [facility] de Phone Number [facility] [address] [place] [address] documented in this encounter Visit Diagnoses Diagnosis Hypothyroidism Unspecified hypothyroidism documented in this encounter Care Teams Senior Power Plant Operator Relationship Specialty Start Date End Date Erika Lopez MD PCP - General 04/22/13 03/12/14 Bart Cortez MD PCP - General Internal Medicine 03/13/14 07/19/14 Yobani Arredondo MD PCP - General Family Medicine 07/20/14 documented as of this encounter
--- OUTSIDE RECORDS SUMMARY | 2024-08-08 08:43 | XMS_ITS | Clinical Summary ---
Author Organization [employer] [facility] ity Address [address] [place] [address] Care Team Providers Care Public Health Internship Name Role Phone Unavailable Primary Care Provider [...] - 2023-2 5 season) 2023 Influenza Vaccine (Season Ended) 2024 HIB Vaccines Aged Out No longer eligi [...] age to complete this topic Meningococcal B Vaccine Aged Out No l onger eligible based on patient's age to complete [...]
== END 2024-08-08 08:31 | disposition home or self-care (01) ==
LOC: HO.XRAY 08:30
PROVIDERS: PCP Physician Assistant; Visit Provider Physician Assistant
DX: J40 Bronchitis, not specified as acute or chronic (principal)
CPT/HCPCS: 71046

== ENCOUNTER → 2024-08-08 08:36 | Outpatient (BNV) | payer OTHER, SELFPAY | PROVIDERS: PCP Physician Assistant; Visit Provider Radiology Diagnostic Radiology | DX: R91.8 Other nonspecific abnormal finding of lung field (principal) | CPT/HCPCS: 71046 ==